=== PATIENT | male | born 1985 | race Caucasian/White ===

== ENCOUNTER 2021-01-28 11:10 | Emergency (ER) | payer MEDICAID ==
[~2021-01-28] VITALS: Ht 177.8 cm; Wt 116.0 kg
[~2021-01-28 11:10] MED LIST: IBUP-1985 PO; NO HOME MEDS
[2021-01-28 11:43] VITALS: BP 178/105
== END 2021-01-28 15:22 | disposition left against medical advice (07) ==
LOC: ER 11:10
DX: F29 Unspecified psychosis not due to a substance or known physiological condition (principal); Z53.21 Procedure and treatment not carried out due to patient leaving prior to being seen by health care provider

== ENCOUNTER 2021-08-02 01:54 | Emergency (ER) | payer MEDICAID ==
[~2021-08-02] VITALS: Ht 177.8 cm; Wt 111.0 kg
[2021-08-02 02:05] VITALS: BP 141/101
[2021-08-02 03:00] LABS: BASOPHILS % (AUTO) 0.4 % (0-1); EOSINOPHILS # (AUTO) 0.1 X10'3 (0-0.9); EOSINOPHILS % (AUTO) 1.3 % (0-6); HEMATOCRIT 41.6 % (42.0-52.0); HEMOGLOBIN 14.1 g/dl (14.0-17.9); LYMPHOCYTES % (AUTO) 32.9 % (21-51); MEAN CORPUSCULAR HEMOGLOBIN 29.3 PG (27.0-31.0); MEAN CORPUSCULAR HGB CONC 33.9 g/dL (33.0-36.5); MEAN CORPUSCULAR VOLUME 86.5 FL (78-98); MEAN PLATELET VOLUME 7.6 FL (7.4-10.4); MONOCYTES # (AUTO) 0.8 X10'3 (0-0.9); MONOCYTES % (AUTO) 8.8 % (2-12); NEUTROPHILS # (AUTO) 5.1 X10'3 (1.8-7.7); NEUTROPHILS % (AUTO) 56.6 % (42-75); PLATELET COUNT 282 X10'3 (140-440); RED BLOOD COUNT 4.81 X10'6 (4.70-6.10); RED CELL DISTRIBUTION WIDTH 13.5 % (11.5-14.5)
[2021-08-02 03:04] LABS: ALANINE AMINOTRANSFERASE 45 U/L (12-78); ALBUMIN 4.4 G/DL (3.4-5.0); ALBUMIN/GLOBULIN RATIO 1.6 (1.1-1.5); ALKALINE PHOSPHATASE 81 IU/L (46-116); ANION GAP 9 (8-16); ASPARTATE AMINO TRANSFERASE 28 U/L (10-37); BILIRUBIN,TOTAL 0.6 MG/DL (0.1-1.0); BLOOD UREA NITROGEN 14 MG/DL (7-18); BUN/CREATININE RATIO 16.9 (5.4-32.0); CALCIUM 9.3 MG/DL (8.5-10.1); CHLORIDE 107 MMOL/L (99-107); CREATININE 0.83 MG/DL (0.60-1.10); ETHANOL < 0.010 GM/DL (0.0-0.010); GLUCOSE 93 MG/DL (70-104); POTASSIUM 3.5 MMOL/L (3.5-5.1); SODIUM 142 MMOL/L (135-145); TOTAL CARBON DIOXIDE 25.6 MMOL/L (24-32); TOTAL PROTEIN 7.2 G/DL (6.4-8.2); eGFR > 90 ML/MIN
[2021-08-02 03:05] LABS: URINE AMPHETAMINE SCREEN POSITIVE (Neg); URINE BARBITUATE SCREEN NEGATIVE (Neg); URINE BENZODIAZEPINES SCREEN NEGATIVE (Neg); URINE CANNABINOID SCREEN POSITIVE (Neg); URINE COCAINE SCREEN NEGATIVE (Neg); URINE METHADONE SCREEN NEGATIVE (Neg); URINE OPIATE SCREEN NEGATIVE (Neg); URINE PHENCYCLIDINE SCREEN NEGATIVE (Neg)
--- NOTE | 2021-08-02 06:52 | NUR ---
Per registration, patient was escorted off the campus by security prior to 0600 this AM.
--- NOTE | 2021-08-02 07:24 | NUR ---
[facility] notified regarding patient. Description provided.
[2021-08-02] MEDS ORDERED: PROP10TA10 PO (16:22)
[2021-08-02] MEDS ORDERED: CARB400T8 PO (16:22)
[2021-08-02] MEDS ORDERED: ATOM80CA3 PO (16:22)
[2021-08-02] MEDS ORDERED: ARIP30TA22 PO (16:22)
== END 2021-08-02 07:25 | disposition left against medical advice (07) ==
LOC: ER 01:55
DX: F31.9 Bipolar disorder, unspecified (principal); Z20.822 Contact with and (suspected) exposure to COVID-19; Z53.21 Procedure and treatment not carried out due to patient leaving prior to being seen by health care provider
CPT/HCPCS: 36415; 80053; 80305; 80320; 85025; 87635; C9803

== ENCOUNTER 2021-08-02 15:23 | Inpatient (IN) | payer MEDICAID ==
[~2021-08-02] VITALS: Ht 177.8 cm; Wt 105.7 kg
[2021-08-02 16:00] LABS: BASOPHILS % (AUTO) 0.5 % (0-1); EOSINOPHILS # (AUTO) 0.2 X10'3 (0-0.9); EOSINOPHILS % (AUTO) 2.1 % (0-6); HEMATOCRIT 42.2 % (42.0-52.0); HEMOGLOBIN 14.2 g/dl (14.0-17.9); LYMPHOCYTES # (AUTO) 2.8 X10'3 (1.1-4.8); LYMPHOCYTES % (AUTO) 31.9 % (21-51); MEAN CORPUSCULAR HEMOGLOBIN 28.9 PG (27.0-31.0); MEAN CORPUSCULAR HGB CONC 33.5 g/dL (33.0-36.5); MEAN CORPUSCULAR VOLUME 86.3 FL (78-98); MEAN PLATELET VOLUME 7.7 FL (7.4-10.4); MONOCYTES % (AUTO) 11.2 % (2-12); NEUTROPHILS # (AUTO) 4.8 X10'3 (1.8-7.7); NEUTROPHILS % (AUTO) 54.3 % (42-75); PLATELET COUNT 290 X10'3 (140-440); RED CELL DISTRIBUTION WIDTH 13.5 % (11.5-14.5); WHITE BLOOD COUNT 8.8 X10'3 (4.5-11.0)
--- NOTE | 2021-08-02 16:05 | NUR ---
Patient is awake and alert. Skin is warm and dry. RN gave patient a pitcher of ice water, apple sauce and cheese. Patient's mucous membranes look dry. Continue to monitor.
[2021-08-02 16:20] LABS: ALANINE AMINOTRANSFERASE 44 U/L (12-78); ALBUMIN 4.5 G/DL (3.4-5.0); ALBUMIN/GLOBULIN RATIO 1.5 (1.1-1.5); ALKALINE PHOSPHATASE 85 IU/L (46-116); ANION GAP 13 (8-16); ASPARTATE AMINO TRANSFERASE 31 U/L (10-37); BILIRUBIN,TOTAL 0.9 MG/DL (0.1-1.0); BLOOD UREA NITROGEN 15 MG/DL (7-18); BUN/CREATININE RATIO 19.2 (5.4-32.0); CALCIUM 9.2 MG/DL (8.5-10.1); CHLORIDE 103 MMOL/L (99-107); CREATININE 0.78 MG/DL (0.60-1.10); ETHANOL < 0.010 GM/DL (0.0-0.010); GLUCOSE 98 MG/DL (70-104); POTASSIUM 3.4 MMOL/L (3.5-5.1); SODIUM 138 MMOL/L (135-145); TOTAL CARBON DIOXIDE 22.1 MMOL/L (24-32); TOTAL PROTEIN 7.5 G/DL (6.4-8.2); eGFR > 90 ML/MIN
[2021-08-02] MEDS ORDERED: PROP10TA10 PO (16:22)
[2021-08-02] MEDS ORDERED: ATOM80CA3 PO (16:22)
[2021-08-02] MEDS ORDERED: ARIP30TA22 PO (16:22)
[2021-08-02] MEDS ORDERED: CARB400T8 PO (16:22)
--- NOTE | 2021-08-02 16:50 | NUR ---
Patient sleeping on left side. No distress observed. Continue to monitor.
[2021-08-02 17:01] LABS: CARBAMAZEPINE (TEGRETOL) 4.7 UG/ML (4.0-12.0)
--- NOTE | 2021-08-02 17:01 | NUR ---
Patient told RN he wants to and "please don't do anything for me." Patient feels hopeless and helpless. Patient states he is Bipolar I and he is hearing voices. Patient is now sleeping. Continue to monitor.
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
[2021-08-02 19:20] LABS: CLARITY,URINE SLIGHTLY CLOUDY (Clear); COLOR,URINE YELLOW (Yellow); GLUCOSE, URINE NEGATIVE (Neg); KETONES,URINE 15 mg/dl (Neg); LEUKOCYTE ESTERASE ,URINE NEGATIVE (Neg); NITRITES, URINE NEGATIVE (Neg); OCCULT BLOOD,URINE NEGATIVE (Neg); PH,URINE 5.5 (4.8-8.0); PROTEIN,URINE TRACE mg/dl (Neg); UROBILINOGEN,URINE 0.2 E.U/dL (0.2-1.0)
[2021-08-02 19:32] LABS: UA COLLECTION TYPE VOIDED
[2021-08-02 19:34] LABS: BACTERIA,URINE FEW /HPF (Neg); RBC,URINE 0-2 /HPF (0-2); SQUAMOUS EPITHELIAL CELL,UR FEW /LPF (FEW); WBC,URINE 0-4 /HPF (0-4)
[2021-08-02 19:36] LABS: URINE AMPHETAMINE SCREEN POSITIVE (Neg); URINE BARBITUATE SCREEN NEGATIVE (Neg); URINE BENZODIAZEPINES SCREEN NEGATIVE (Neg); URINE CANNABINOID SCREEN POSITIVE (Neg); URINE COCAINE SCREEN NEGATIVE (Neg); URINE METHADONE SCREEN NEGATIVE (Neg); URINE OPIATE SCREEN NEGATIVE (Neg); URINE PHENCYCLIDINE SCREEN NEGATIVE (Neg)
--- NOTE | 2021-08-02 19:59 | NUR ---
Packet faxed to [facility]
[2021-08-02] MEDS: neomy sulf/bacitrac zn/polymixin b oint 14.2 gm tube TP SCH (20:00)
[2021-08-02] MEDS: carBAMazepine Ext. Release 200 MG TAB.ER.12H PO SCH (20:00)
--- NOTE | 2021-08-02 21:55 | NUR ---
The patient appears to be sleeping
--- NOTE | 2021-08-02 23:01 | NUR ---
The patient appears to be sleeping
--- NOTE | 2021-08-03 00:36 | NUR ---
The patient appears to be sleeping
--- NOTE | 2021-08-03 02:53 | NUR ---
The patient appears to be sleeping
--- NOTE | 2021-08-03 04:05 | NUR ---
The patient appears to be sleeping
[2021-08-03] MEDS: neomy sulf/bacitrac zn/polymixin b oint 14.2 gm tube TP SCH (08:00)
[2021-08-03] MEDS ORDERED: ARIPIPRAZOLE 15 MG TABLET PO SCH (08:00)
--- NOTE | 2021-08-03 08:07 | NUR ---
Doing well. No complaints. Ate breakfast without difficulty.
[2021-08-03] MEDS: carBAMazepine Ext. Release 200 MG TAB.ER.12H PO SCH ×2 (08:52→20:39)
[2021-08-03] MEDS: atomoxetine 40 MG capsule PO SCH (08:52)
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
--- NOTE | 2021-08-03 11:50 | NUR ---
Tori from [facility] here to speak to pt.
--- NOTE | 2021-08-03 11:57 | NUR ---
Mireya stated they will look for placement for this pt.
--- NOTE | 2021-08-03 13:57 | NUR ---
resting. no distress.
--- NOTE | 2021-08-03 15:19 | NUR ---
Doing well. Got up to BR. Ambulated without difficulty.
--- NOTE | 2021-08-03 16:49 | NUR ---
Resting at this time.
--- NOTE | 2021-08-03 19:06 | NUR ---
Patient observed sleeping; no apparent distress. Respirations even and non labored.
[2021-08-03] MEDS: ARIPIPRAZOLE 15 MG TABLET PO SCH (20:38)
--- NOTE | 2021-08-03 20:48 | NUR ---
Patient's wound DSG changed; he denies pain at this time
--- NOTE | 2021-08-03 23:05 | NUR ---
Patient observed sleeping; no apparent distress observed. Self repositioning.
--- NOTE | 2021-08-04 02:03 | NUR ---
Patient observed sleeping; no apparent distress observed. Self repositioning.
--- NOTE | 2021-08-04 05:32 | NUR ---
Patient observed sleeping; no apparent distress observed.
[2021-08-04] MEDS: neomy sulf/bacitrac zn/polymixin b oint 14.2 gm tube TP SCH (08:00)
[2021-08-04] MEDS: atomoxetine 40 MG capsule PO SCH (08:59)
[2021-08-04] MEDS: carBAMazepine Ext. Release 200 MG TAB.ER.12H PO SCH ×2 (09:01→19:54)
--- NOTE | 2021-08-04 09:33 | NUR ---
Patient pleasant and cooperative; compliant with medication. Endorses SI. Patient has been accepted on [facility].
--- NOTE | 2021-08-04 09:46 | NUR ---
Patient transferred to [facility] by PCT with belongings.
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
[2021-08-04] MEDS ORDERED: loperamide 2mg capsule PO PRN (10:20)
[2021-08-04] MEDS ORDERED: acetaminophen 325mg tablet PO PRN ×2 (10:20)
[2021-08-04] MEDS ORDERED: magnesium hydroxide 30ml (MOM) UD suspension PO PRN (10:20)
[2021-08-04] MEDS ORDERED: mag hydrox/Alum hydrox/simeth 30ml oral suspension PO PRN (10:20)
[2021-08-04 10:34] VITALS: BP 118/79
--- NOTE | 2021-08-04 11:03 | NUR ---
Malnutrition consult: Pt reports 2-13 lb wt loss with decreased appetite per malnutrition risk screen with RN. Unfortunately most recent scaled wt hx is 04/02/16, documented at 100.2 kg, which appears to be baseline for that year per EMR. Current scaled wt is 105.7 kg which is 140% IBW. Pt on a regular diet and eating well, documented with 75-100% PO intake. Pt with no documented decrease in muscle strength or edema and per ED report appears well developed well nourished. Pt currently lacks a minimum of two criteria for malnutrition. Will continue to follow and further monitor qualifying criteria for malnutrition. Addendum: 08/04/21 at [address] Amended: Links added.
[2021-08-04 14:33] VITALS: BP 117/77
[2021-08-04] MEDS: propranolol 10mg tablet PO PRN ×2 (14:33→19:37)
--- NOTE | 2021-08-04 14:51 | NUR ---
PRNs Administered: Propranolol 10mg Interventions Offered: Pt. became agitated while talking on the telephone with his family and began yelling out using multiple profanities. He was able to be redirected by staff and PRN Propranolol was administered. Response to Medication: Pt. thanked this writer editor for the medication, will continue to monitor closely.
--- NOTE | 2021-08-04 15:42 | NUR ---
Problem : Pt admitted to [place] for Behavioral health on 5150 for DTS/DTO. Pt reports plan to jump off a bridge to kill himself. He reports audio hallucination telling him to hurt other people. Unable to develop safety plan. Pt has history of Schizophrenia and bipolar. Interventions : Introduced self and established rapport, maintained a safe and supportive environment, ensured contract for safety, provide active listening and positive encouragement, provided redirection as needed, and maintained Q 15min safety checks. Response : Pt. was cooperative with 1:1 completed at bedside, however presented with fatigue and had difficulty focusing on questions and keeping his eyes open. Pt. continues to report S/I with a plan to jump off a bridge. He also reports H/I towards others around him, but does not elaborate on this. When questioned regrading A/V/ASHTON, pt. states, "I hear the voices of the people I talk to daily." He also endorses V/ASHTON of "People." Pt. makes what appear to be delusional statements regarding his belief that others, "Are trying to hurt me or people I care about." Pt. is currently homeless, but reports he receives money from disability and is hopeful that the child protective services social worker will be able to find him a new place to live. He is also hoping to work with the psychiatrist to find medications that will better work for him. Pt. naps intermittently throughout the shift, and is withdrawn from others on the unit. He has an episode of agitation but is able to be redirected, see previous note. Plan : Pt. requires interruption of current crisis, medication adjustments, and a safe and supportive environment.
[2021-08-04 19:25] VITALS: BP 130/79
[2021-08-04] MEDS: ARIPIPRAZOLE 15 MG TABLET PO SCH (19:54)
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
[2021-08-05 08:00] VITALS: BP 123/60
[2021-08-05] MEDS: atomoxetine 40 MG capsule PO SCH (08:34)
[2021-08-05] MEDS: carBAMazepine Ext. Release 200 MG TAB.ER.12H PO SCH ×2 (08:35→20:49)
[2021-08-05] MEDS: neomy sulf/bacitrac zn/polymixin b oint 14.2 gm tube TP SCH (08:37)
[2021-08-05 08:45] LABS: CHOL/HDL RATIO 5.5 (0.00-4.99); CHOLESTEROL 221 MG/DL (0-200); HDL CHOLESTEROL 40 MG/DL (35-60); LDL CHOLESTEROL 142 MG/DL (50-100); TRIGLYCERIDES 139 MG/DL (20-135)
[2021-08-05 08:46] LABS: HEMOGLOBIN A1C 5.8 % (4.5-6.2)
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
[2021-08-05 19:53] VITALS: BP 98/61
[2021-08-05] MEDS: traZODone 50mg tablet PO PRN ×2 (20:49→23:52)
[2021-08-05] MEDS: ARIPIPRAZOLE 15 MG TABLET PO SCH (20:49)
--- NOTE | 2021-08-06 01:02 | NUR ---
Nursing Note: Problem : Pt admitted to [place] for Behavioral health on 5150 for DTS/DTO. Pt reports plan to jump off a bridge to kill himself. He reports audio hallucination telling him to hurt other people. Unable to develop safety plan. Pt has history of Schizophrenia and bipolar. Interventions : Established rapport, maintained a safe and supportive environment, ensured contract for safety, provide active listening and positive encouragement, provided redirection as needed, performed wound cleaning and dressing change and maintained Q 15min safety checks. Response : Sleeping in bed at start of shift. Up in group room later asked for something at HS to help him sleep. Order was obtained for Trazodone. Pt requested coffee with caffeine. Pt became angry when told that was not possible. During assessment pt became angry when asked how was your day? "Shitty without a Stimulant I have ADHD." When pt was reminded that he was taking Strattera he said. "That medication is non-Narcotic it is Bullshit." Pt mood is labile. He seems to try and be calm but has sudden but short outbursts. Pt admitted Auditory hallucinations but was vague as to the content. He took PRN Trazodone and went to sleep. Plan : Pt. requires interruption of current crisis, medication adjustments, and a safe and supportive environment.
[2021-08-06 07:58] VITALS: BP 122/67
[2021-08-06] MEDS: atomoxetine 40 MG capsule PO SCH (08:11)
[2021-08-06] MEDS: carBAMazepine Ext. Release 200 MG TAB.ER.12H PO SCH ×2 (08:11→20:50)
[2021-08-06] MEDS: propranolol 10mg tablet PO PRN ×2 (08:11→17:18)
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
[2021-08-06 17:16] VITALS: BP 126/86
[2021-08-06 19:30] VITALS: BP 120/75
[2021-08-06] MEDS: traZODone 50mg tablet PO PRN (20:49)
[2021-08-06] MEDS: ARIPIPRAZOLE 15 MG TABLET PO SCH (20:51)
[2021-08-06] MEDS ORDERED: OLANZapine 5mg rapidly disint. tablet PO PRN (21:05)
[2021-08-06] MEDS: traZODone 50mg tablet PO SCH (21:15)
[2021-08-07] MEDS: propranolol 10mg tablet PO PRN (02:47)
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
[2021-08-07 08:00] VITALS: BP 97/60
[2021-08-07] MEDS: atomoxetine 40 MG capsule PO SCH (08:05)
[2021-08-07] MEDS: carBAMazepine Ext. Release 200 MG TAB.ER.12H PO SCH ×2 (08:08→20:07)
--- NOTE | 2021-08-07 13:27 | NUR ---
Nutrition Consult "pt wants to talk about diet": Pt PO ~100% avg regular diet meeting estimated needs. HIAN d/w RN on floor regarding nutrition consult request however pt RN currently not available; pending return call at this time. No nutrition interventions at this time. Addendum: 08/07/21 at [address] Amended: Links added.
--- NOTE | 2021-08-07 13:34 | NUR ---
WOUND INFECTION EDUCATION PROVIDED BY WOUND CARE 1. Patient instructed to call their primary doctor, or go the ED immediately if any of the following symptoms occur: * Increased pain in wound * Increase in drainage from the wound * Redness in the skin surrounding the wound * Warmth in the skin surrounding the wound * Bleeding from the wound * Temperature of 101 or greater 2. If any of these occur while in the hospital tell a nurse immediately. Addendum: 08/07/21 at 1335 by Shirley Dumont LVN Amended: Links added.
[2021-08-07] MEDS ORDERED: olanzapine 10mg tablet PO PRN (13:45)
[2021-08-07] MEDS ORDERED: aripiprazole 400mg suspension ER syringe IM ONE (13:45)
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
[2021-08-07 19:25] VITALS: BP 127/77
[2021-08-07] MEDS: ARIPIPRAZOLE 15 MG TABLET PO SCH (20:07)
[2021-08-07] MEDS: traZODone 50mg tablet PO SCH (20:08)
--- NOTE | 2021-08-07 21:36 | NUR ---
Nursing Note: Problem : Pt admitted to [place] for Behavioral health on 5150 for DTS/DTO. Pt reports plan to jump off a bridge to kill himself. He reports audio hallucination telling him to hurt other people. Unable to develop safety plan. Pt has history of Schizophrenia and bipolar. Interventions : Established rapport, maintained a safe and supportive environment, ensured contract for safety, provide active listening and positive encouragement, provided redirection as needed, performed wound cleaning and dressing change and maintained Q 15min safety checks. Response : Pt was resting in his room at change of shift. Abilify injection administered, pt tolerated well. Pt requested to shower and dressing was covered and continued to appear CDI when he was out of the shower. Pt is pleasant, calm, cooperative this evening. Pt asked another nurse "Why are you so mad tonight?" Nurse had not been engaged in a conversation at the time so it appeared he may have been responding to IS. Pt had a snack, took HS meds and went to bed. Plan : Pt. requires interruption of current crisis, medication adjustments, and a safe and supportive environment.
--- NOTE | 2021-08-08 07:17 | NUR ---
Initial: Pt admitted w/ suicidal ideations per EMR. Currently on Regular diet w/ double protein TID per diet order, eating 100% of meals and participating in snacks per documentation. Pt greatly exceeding needs w/ addition of double protein, recommend discontinuing. Per discussion w/ RN, pt is requesting beans and rice w/ meals, d/w dietary. [facility] 08/07. Will continue to monitor. Recs; 1. Continue Regular diet as tolerated; discontinue Double protein TID 2. Beans and rice w/ meals per pt preference 3. Bowel care PRN 4. Weekly wts Addendum: 08/08/21 at [address] Amended: Links added.
[2021-08-08 08:00] VITALS: BP 125/65
[2021-08-08] MEDS: carBAMazepine Ext. Release 200 MG TAB.ER.12H PO SCH ×2 (08:08→20:02)
[2021-08-08] MEDS: atomoxetine 40 MG capsule PO SCH (08:08)
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
[2021-08-08 19:45] VITALS: BP 122/86
[2021-08-08] MEDS: traZODone 50mg tablet PO SCH (20:01)
[2021-08-08] MEDS: ARIPIPRAZOLE 15 MG TABLET PO SCH (20:01)
--- NOTE | 2021-08-08 20:57 | NUR ---
Nursing Note: Problem : Pt admitted to [place] for Behavioral health on 5150 for DTS/DTO. Pt reports plan to jump off a bridge to kill himself. He reports audio hallucination telling him to hurt other people. Unable to develop safety plan. Pt has history of Schizophrenia and bipolar. Interventions : Established rapport, maintained a safe and supportive environment, ensured contract for safety, provide active listening and positive encouragement, provided redirection as needed, performed wound cleaning and dressing change and maintained Q 15min safety checks. Response : Pt was walking in the hallway at change of shift. He is in a pleasant mood tonight and requests personal clothing from his locker. pt denies s/i, a/vh. Pt changed his clothes and seems to be very proud of his clothing, and a bit grandiose telling staff and peers about having "hundreds of dollars of [employer] brand clothes." Pt had snack and appears to getting along well w/peers. Pt took HS meds and states "Im not taking any of this when I get out of here!" Attempted to educate pt on what his medication is for and encouraged him to consider how well he is doing with his medication. Pt replied "I know, but I don't need sleep when I leave here." Plan : Pt. requires interruption of current crisis, medication adjustments, and a safe and supportive environment. Addendum: 08/08/21 at 2326 by Rachael Nickerson RN Pt got out of bed and began pacing and wearing headphones, pt states he is feeling anxious and states 'I'm about to have a panic attack I need propranolol" Pt was given prn propranol and continued to pace and run his fingers through his hair often. Pt was in and out of his room and appeared to escalate. Asked pt if he was ok and he states "I want to leave, I have intuition something is going to happen to my and daughter and I need to leave now to check on them." Engaged pt in conversation and he explains in a grandiose manner what he's "created" and how he has to "fight more people in the [facility] brother bui" pt is tangential and rambling about being in [facility] and longterm people wanting to kill him. Pt was determined to leave to "check on" his family. Pt was offered 10mg Zyprexa PRN and he laughs and states "I'll sleep for 3 days on that stuff, ok I'll take one." Pt took 1/2 of his zyprexa dose and spoke of various things hes done in the past. Pt decided he would go lay in bed and try to sleep.
[2021-08-08] MEDS: propranolol 10mg tablet PO PRN (21:21)
[2021-08-09 07:39] VITALS: BP 114/65
[2021-08-09] MEDS: carBAMazepine Ext. Release 200 MG TAB.ER.12H PO SCH ×2 (08:00→08:54)
[2021-08-09] MEDS: atomoxetine 40 MG capsule PO SCH (08:54)
--- NOTE | 2021-08-09 09:14 | NUR ---
PT REFUSED TO TAKE HIS TRILEPTAL. HE STATES, "AT HOME I TAKE THE MEDICATIONS THAT MAKE ME TIRED AT NIGHT, NOT IN THE MORNING."
--- NOTE | 2021-08-09 11:53 | NUR ---
Discharge Presenting Issues: Pt's on Vol and per attending physician is ready to d/c, needs support with dcp activities. Interventions: Clinician had t/c w/[facility] to coordinate aftercare plan as pt wants to resume services w/[facility]. Per t/c pt is to walk-in during [facility] hours to re-establish services. Clinician met w/pt and finalized dcp: Pt reported that he will spend a night at his GM's home in [place], does not know address, and will return to [place] tomorrow morning to walk-in at [facility]. Clinician provided bus passes for pt to use to get to [facility] clinic tomorrow. Plan: Pt to d/c and to last picker. Cathleen Carballo LCSW Addendum: 08/09/21 at 1157 by Cathleen Carballo SS Amended: Links added.
--- NOTE | 2021-08-09 11:54 | NUR ---
Pt refused photo because dressing is in place for discharge Addendum: 08/09/21 at 1156 by Lesia Rebolledo RN Amended: Links added.
== END 2021-08-09 12:00 | disposition home or self-care (01) | DRG 750 ==
LOC: ER 15:23 → ED HOLD 08-04 08:45 → ADULT MH 08-04 09:54
PROVIDERS: ADMIT Psychiatry & Neurology Psychiatry; ATTEND Psychiatry & Neurology Psychiatry
DX: F25.0 Schizoaffective disorder, bipolar type (principal); R45.851 Suicidal ideations; R45.850 Homicidal ideations; F12.10 Cannabis abuse, uncomplicated; Z20.822 Contact with and (suspected) exposure to COVID-19; I10 Essential (primary) hypertension; F31.9 Bipolar disorder, unspecified; E87.6 Hypokalemia; F15.10 Other stimulant abuse, uncomplicated; F17.200 Nicotine dependence, unspecified, uncomplicated; F90.9 Attention-deficit hyperactivity disorder, unspecified type; K21.9 Gastro-esophageal reflux disease without esophagitis; S30.811A Abrasion of abdominal wall, initial encounter; X58.XXXA Exposure to other specified factors, initial encounter; Y93.89 Activity, other specified; Z56.0 Unemployment, unspecified; Z87.442 Personal history of urinary calculi; Z59.00 Homelessness unspecified; Z79.2 Long term (current) use of antibiotics; Z79.899 Other long term (current) drug therapy; Y92.89 Other specified places as the place of occurrence of the external cause; Y99.8 Other external cause status; E11.9 Type 2 diabetes mellitus without complications
CPT/HCPCS: 36415; 80053; 80061; 80156; 80305; 80320; 81001; 83036; 84443; 85025; 87081; 87635; 99285; A6223; A6258; A6449; C9803

== ENCOUNTER 2021-08-15 16:56 | Emergency (ER) | payer MEDICAID ==
[~2021-08-15 16:56] MED LIST changes: +ARIP30TA22 PO; +ATOM80CA3 PO; +CARB400T8 PO; -IBUP-1985 PO; -NO HOME MEDS; +PROP10TA10 PO
[2021-08-16] MEDS ORDERED: ARIP400S3 IM (22:16)
== END 2021-08-15 18:38 | disposition left against medical advice (07) ==
LOC: ER 16:56
DX: M79.673 Pain in unspecified foot (principal); Z53.21 Procedure and treatment not carried out due to patient leaving prior to being seen by health care provider

== ENCOUNTER 2021-09-02 18:42 | Emergency (ER) | payer MEDICAID ==
[~2021-09-02] VITALS: Ht 177.8 cm; Wt 104.5 kg
[~2021-09-02 18:42] MED LIST changes: +ARIP400S3 IM; +SULF1TAB49 PO
[2021-09-03 09:39] LABS: BASOPHILS % (AUTO) 0.4 % (0-1); EOSINOPHILS # (AUTO) 0.1 X10'3 (0-0.9); EOSINOPHILS % (AUTO) 0.8 % (0-6); HEMATOCRIT 38.8 % (42.0-52.0); HEMOGLOBIN 13.2 g/dl (14.0-17.9); LYMPHOCYTES # (AUTO) 2.2 X10'3 (1.1-4.8); LYMPHOCYTES % (AUTO) 25.7 % (21-51); MEAN CORPUSCULAR HEMOGLOBIN 29.5 PG (27.0-31.0); MEAN CORPUSCULAR VOLUME 86.8 FL (78-98); MONOCYTES # (AUTO) 0.5 X10'3 (0-0.9); MONOCYTES % (AUTO) 5.9 % (2-12); NEUTROPHILS # (AUTO) 5.8 X10'3 (1.8-7.7); NEUTROPHILS % (AUTO) 67.2 % (42-75); PLATELET COUNT 246 X10'3 (140-440); RED BLOOD COUNT 4.47 X10'6 (4.70-6.10); RED CELL DISTRIBUTION WIDTH 13.8 % (11.5-14.5); WHITE BLOOD COUNT 8.6 X10'3 (4.5-11.0)
[2021-09-03 09:47] LABS: ALANINE AMINOTRANSFERASE 55 U/L (12-78); ALBUMIN 3.7 G/DL (3.4-5.0); ALBUMIN/GLOBULIN RATIO 1.2 (1.1-1.5); ALKALINE PHOSPHATASE 82 IU/L (46-116); ANION GAP 10 (8-16); ASPARTATE AMINO TRANSFERASE 26 U/L (10-37); BILIRUBIN,TOTAL 0.8 MG/DL (0.1-1.0); BLOOD UREA NITROGEN 9 MG/DL (7-18); CALCIUM 8.8 MG/DL (8.5-10.1); CHLORIDE 103 MMOL/L (99-107); ETHANOL < 0.010 GM/DL (0.0-0.010); GLUCOSE 115 MG/DL (70-104); SODIUM 138 MMOL/L (135-145); TOTAL PROTEIN 6.8 G/DL (6.4-8.2); eGFR > 90 ML/MIN
--- NOTE | 2021-09-03 10:00 | NUR ---
Pt brought from Triage. Needs medical clearance. Pt changed from street clothes into green scrubs. Pt c/o "a high frustration level with his nephew." He states, "I have ADHD and am easily angered." He said, "maybe I need a little more Zyprexa, I had the long acting last time I was here."
[2021-09-03] MEDS ORDERED: potassium Cl 20 mEq SR tablet PO STA (10:07)
--- NOTE | 2021-09-03 11:09 | NUR ---
Pt now appears to be sleeping. His eyes are closted. RR even and unlabored.
--- NOTE | 2021-09-03 12:49 | NUR ---
Pt continues to sleep. He has not been up to for urinalysis. [facility] office notified.
--- NOTE | 2021-09-03 14:49 | NUR ---
Pt awake and asking for food. Helen went to the cafeteria to get food. Reg. diet ordered per patient request.
[2021-09-03 15:17] LABS: CLARITY,URINE CLEAR (Clear); COLOR,URINE YELLOW (Yellow); GLUCOSE, URINE NEGATIVE (Neg); KETONES,URINE NEGATIVE (Neg); LEUKOCYTE ESTERASE ,URINE NEGATIVE (Neg); NITRITES, URINE NEGATIVE (Neg); OCCULT BLOOD,URINE NEGATIVE (Neg); PROTEIN,URINE NEGATIVE (Neg); UROBILINOGEN,URINE 0.2 E.U/dL (0.2-1.0)
[2021-09-03 15:21] LABS: UA COLLECTION TYPE NON-SPECIFIED
[2021-09-03 15:36] LABS: URINE AMPHETAMINE SCREEN NEGATIVE (Neg); URINE BARBITUATE SCREEN NEGATIVE (Neg); URINE BENZODIAZEPINES SCREEN NEGATIVE (Neg); URINE CANNABINOID SCREEN POSITIVE (Neg); URINE COCAINE SCREEN NEGATIVE (Neg); URINE METHADONE SCREEN NEGATIVE (Neg); URINE OPIATE SCREEN NEGATIVE (Neg); URINE PHENCYCLIDINE SCREEN NEGATIVE (Neg)
--- NOTE | 2021-09-03 15:51 | NUR ---
PACKET FAXED TO [facility]
--- NOTE | 2021-09-03 17:39 | NUR ---
Pt continues to sleep. RR even and unlabored.
[2021-09-03] MEDS ORDERED: propranolol 10mg tablet PO PRN (17:40)
--- NOTE | 2021-09-03 19:39 | NUR ---
The patient has been resting quietly on his bed. He ate 100% of his dinner plus snacks. He reports voices frequently when awake and at times they tell him to harm others. He reports VH of shadows. He denies that he feels sucidal.
[2021-09-03] MEDS: sulfamethoxazole/trimethoprim DS (800/160mg) tablet PO SCH (20:07)
[2021-09-03] MEDS: carBAMazepine Ext. Release 200 MG TAB.ER.12H PO SCH (20:07)
[2021-09-03] MEDS ORDERED: ARIPIPRAZOLE 15 MG TABLET PO SCH (21:00)
--- NOTE | 2021-09-03 21:34 | NUR ---
The patient appears to be sleeping
--- NOTE | 2021-09-03 23:17 | NUR ---
The patient appears to be sleeping
--- NOTE | 2021-09-04 01:04 | NUR ---
The patient appears to be sleeping
--- NOTE | 2021-09-04 03:01 | NUR ---
The patient appears to be sleeping
--- NOTE | 2021-09-04 05:05 | NUR ---
The patient is currently resting on his bed. The wound on his leg did start to drain when he was up to use the bathroom and a dressing was applied.
[2021-09-04 05:29] VITALS: BP 119/73
--- NOTE | 2021-09-04 07:00 | NUR ---
Received Pt in bed sleeping w/o distress.
[2021-09-04] MEDS ORDERED: atomoxetine 40 MG capsule PO SCH (08:00)
[2021-09-04] MEDS: carBAMazepine Ext. Release 200 MG TAB.ER.12H PO SCH (08:59)
[2021-09-04] MEDS: sulfamethoxazole/trimethoprim DS (800/160mg) tablet PO SCH (08:59)
--- NOTE | 2021-09-04 09:05 | NUR ---
Pt was up to batrhroom and ate breakfast. Pt cooperative with AM meds. Pt pleasant, cooperative and tired at this time.
--- NOTE | 2021-09-04 11:30 | NUR ---
Pt in bed talking with [facility] clinician appropriatly.
--- NOTE | 2021-09-04 12:30 | NUR ---
Talked with [facility] clinician who stated Pt will be discharging and 5150 not upheld.
--- NOTE | 2021-09-04 13:12 | NUR ---
Pt discharged at 1310. Pt belongings returned to him and DC instructions reviewed and understood. Pt escorted to outside by security.
== END 2021-09-04 13:13 ==
LOC: ER 18:43
DX: R45.850 Homicidal ideations (principal); Z20.822 Contact with and (suspected) exposure to COVID-19; F15.10 Other stimulant abuse, uncomplicated; F12.10 Cannabis abuse, uncomplicated; I10 Essential (primary) hypertension; F31.9 Bipolar disorder, unspecified; F20.9 Schizophrenia, unspecified; Z87.442 Personal history of urinary calculi
CPT/HCPCS: 36415; 80053; 80305; 80320; 81003; 85025; 87811; 99285; C1758

== ENCOUNTER 2021-10-04 23:02 | Emergency (ER) | payer MEDICAID ==
[~2021-10-04] VITALS: Ht 177.8 cm; Wt 100.0 kg
[~2021-10-04 23:02] MED LIST changes: -SULF1TAB49 PO
[2021-10-04 23:13] VITALS: BP 137/90
== END 2021-10-05 00:19 | disposition left against medical advice (07) ==
LOC: ER 23:06
DX: F31.9 Bipolar disorder, unspecified (principal); Z53.21 Procedure and treatment not carried out due to patient leaving prior to being seen by health care provider

== ENCOUNTER 2021-10-06 21:31 | Emergency (ER) | payer MEDICAID ==
[~2021-10-06] VITALS: Ht 180.3 cm; Wt 103.6 kg
[2021-10-06 21:41] VITALS: BP 135/88
== END 2021-10-07 00:38 | disposition left against medical advice (07) ==
LOC: ER 21:32
DX: M79.671 Pain in right foot (principal); M79.672 Pain in left foot; Z53.21 Procedure and treatment not carried out due to patient leaving prior to being seen by health care provider

== ENCOUNTER 2021-10-07 20:00 | Emergency (ER) | payer MEDICAID ==
[~2021-10-07] VITALS: Ht 177.8 cm; Wt 95.5 kg
[2021-10-07 20:04] VITALS: BP 129/86
== END 2021-10-07 21:23 | disposition left against medical advice (07) ==
LOC: ER 20:00
DX: M79.671 Pain in right foot (principal); M79.672 Pain in left foot; Z53.21 Procedure and treatment not carried out due to patient leaving prior to being seen by health care provider

== ENCOUNTER 2021-10-10 23:27 | Emergency (ER) | payer MEDICAID ==
[~2021-10-10] VITALS: Ht 177.8 cm; Wt 95.5 kg
[2021-10-10 23:47] VITALS: BP 141/96
== END 2021-10-11 03:02 | disposition left against medical advice (07) ==
LOC: ER 23:29
DX: Z04.6 Encounter for general psychiatric examination, requested by authority (principal); Z53.21 Procedure and treatment not carried out due to patient leaving prior to being seen by health care provider
CPT/HCPCS: 93005

== ENCOUNTER 2021-10-13 18:46 | Emergency (ER) | payer MEDICAID ==
[~2021-10-13] VITALS: Ht 180.3 cm; Wt 113.6 kg
[2021-10-13 18:50] VITALS: BP 137/92
== END 2021-10-14 02:30 | disposition left against medical advice (07) ==
LOC: ER 18:47
DX: R45.851 Suicidal ideations (principal); Z53.21 Procedure and treatment not carried out due to patient leaving prior to being seen by health care provider

== ENCOUNTER 2021-10-14 10:30 | Emergency (ER) | payer MEDICAID | END 2021-10-14 14:03 | disposition left against medical advice (07) | LOC: ER 10:30 | DX: F29 Unspecified psychosis not due to a substance or known physiological condition (principal); Z53.21 Procedure and treatment not carried out due to patient leaving prior to being seen by health care provider ==

== ENCOUNTER 2021-10-14 20:57 | Emergency (ER) | payer MEDICAID ==
[~2021-10-14] VITALS: Ht 180.3 cm; Wt 97.9 kg
[2021-10-14 22:11] VITALS: BP 127/75
== END 2021-10-15 01:17 | disposition left against medical advice (07) ==
LOC: ER 20:58
DX: R45.851 Suicidal ideations (principal); Z53.21 Procedure and treatment not carried out due to patient leaving prior to being seen by health care provider

== ENCOUNTER 2021-10-19 21:08 | Emergency (ER) | payer MEDICAID ==
[~2021-10-19] VITALS: Ht 175.3 cm; Wt 98.0 kg
[2021-10-19 21:17] VITALS: BP 126/96
== END 2021-10-20 01:54 | disposition left against medical advice (07) ==
LOC: ER 21:09
DX: M79.671 Pain in right foot (principal); M79.672 Pain in left foot; Z53.21 Procedure and treatment not carried out due to patient leaving prior to being seen by health care provider

== ENCOUNTER → 2021-11-02 | Emergency (ER) | payer MEDICAID ==
[~2021-11-02] VITALS: Ht 177.8 cm; Wt 90.9 kg
[~2021-11-02] MED LIST changes: -ARIP400S3 IM; +BUPR1FIL54 BC; +CEPH-585 PO; +OLAN15TA35 PO; -PROP10TA10 PO; +Vitamins A And D TP
[2021-11-02 17:08] VITALS: BP 147/93
== END | disposition left against medical advice (07) ==
LOC: ER 16:34
DX: F29 Unspecified psychosis not due to a substance or known physiological condition (principal); Z53.21 Procedure and treatment not carried out due to patient leaving prior to being seen by health care provider

== ENCOUNTER 2022-01-12 21:15 | Inpatient (IN) | payer MEDICAID ==
[~2022-01-12] VITALS: Ht 180.3 cm; Wt 89.3 kg
--- NOTE | 2022-01-13 00:04 | NUR ---
Lab informed senior writer that she called the patient and the pt is not in the lobby
--- NOTE | 2022-01-13 02:59 | NUR ---
PT NON COOPERATIVE WITH ASSESSMENTS AT THIS TIME.
[2022-01-13] MEDS ORDERED: haloperidol lactate 5mg/ml inj ONE (05:50)
[2022-01-13] MEDS ORDERED: LORazepam 2 mg/ml vial ONE (05:51)
--- NOTE | 2022-01-13 07:17 | NUR ---
LABS DRAWN SENT TO LAB. PT IS SLEEPING IN POSITION OF COMFORT. VS WNL
[2022-01-13 07:42] LABS: BASOPHILS % (AUTO) 0.5 % (0-1); EOSINOPHILS # (AUTO) 0.2 X10'3 (0-0.9); EOSINOPHILS % (AUTO) 2.6 % (0-6); HEMATOCRIT 39.9 % (42.0-52.0); HEMOGLOBIN 13.8 g/dl (14.0-17.9); LYMPHOCYTES # (AUTO) 1.7 X10'3 (1.1-4.8); LYMPHOCYTES % (AUTO) 29.1 % (21-51); MEAN CORPUSCULAR HEMOGLOBIN 29.7 PG (27.0-31.0); MEAN CORPUSCULAR HGB CONC 34.5 g/dL (33.0-36.5); MEAN PLATELET VOLUME 7.9 FL (7.4-10.4); MONOCYTES # (AUTO) 0.6 X10'3 (0-0.9); NEUTROPHILS # (AUTO) 3.4 X10'3 (1.8-7.7); NEUTROPHILS % (AUTO) 57.8 % (42-75); PLATELET COUNT 275 X10'3 (140-440); RED BLOOD COUNT 4.64 X10'6 (4.70-6.10); RED CELL DISTRIBUTION WIDTH 14.3 % (11.5-14.5); WHITE BLOOD COUNT 5.8 X10'3 (4.5-11.0)
[2022-01-13 09:11] LABS: ETHANOL < 0.010 GM/DL (0.0-0.010); POTASSIUM 3.7 MMOL/L (3.5-5.1); SODIUM 139 MMOL/L (135-145)
[2022-01-13 09:12] LABS: ALANINE AMINOTRANSFERASE 38 U/L (12-78); ALBUMIN 3.6 G/DL (3.4-5.0); ALBUMIN/GLOBULIN RATIO 1.1 (1.1-1.5); ALKALINE PHOSPHATASE 85 IU/L (46-116); ANION GAP 9 (8-16); ASPARTATE AMINO TRANSFERASE 34 U/L (10-37); BILIRUBIN,TOTAL 0.8 MG/DL (0.1-1.0); BLOOD UREA NITROGEN 13 MG/DL (7-18); CALCIUM 9.1 MG/DL (8.5-10.1); CHLORIDE 104 MMOL/L (99-107); CREATININE 0.52 MG/DL (0.60-1.10); GLUCOSE 97 MG/DL (70-104); TOTAL CARBON DIOXIDE 25.7 MMOL/L (24-32); TOTAL PROTEIN 6.9 G/DL (6.4-8.2); eGFR > 90 ML/MIN
--- NOTE | 2022-01-13 09:23 | NUR ---
PT SLEEPING IN POSITION OF COMFORT. AROUSABLE BUT NOT ABLE TO STAY AWAKE. EVEN RISE AND FALL OF CHEST. PT ON MONITOR WITH VS WNL
--- NOTE | 2022-01-13 13:13 | NUR ---
PT CONTINUES TO SLEEP IN POSITION OF COMFORT. AROUSABLE BUT VERY DROWSY. UNABLE TO ANSWER ANY QUESTIONS.
[2022-01-13 13:27] LABS: CLARITY,URINE CLEAR (Clear); COLOR,URINE YELLOW (Yellow); GLUCOSE, URINE NEGATIVE (Neg); KETONES,URINE 15 mg/dl (Neg); LEUKOCYTE ESTERASE ,URINE NEGATIVE (Neg); NITRITES, URINE NEGATIVE (Neg); OCCULT BLOOD,URINE NEGATIVE (Neg); PROTEIN,URINE NEGATIVE (Neg); UROBILINOGEN,URINE 0.2 E.U/dL (0.2-1.0)
[2022-01-13 13:29] LABS: UA COLLECTION TYPE NON-SPECIFIED
[2022-01-13 13:48] LABS: URINE AMPHETAMINE SCREEN POSITIVE (Neg); URINE BARBITUATE SCREEN NEGATIVE (Neg); URINE BENZODIAZEPINES SCREEN NEGATIVE (Neg); URINE CANNABINOID SCREEN POSITIVE (Neg); URINE COCAINE SCREEN NEGATIVE (Neg); URINE METHADONE SCREEN NEGATIVE (Neg); URINE OPIATE SCREEN NEGATIVE (Neg); URINE PHENCYCLIDINE SCREEN NEGATIVE (Neg)
--- NOTE | 2022-01-13 14:30 | NUR ---
PT AWAKE STATES SI. DENIES VISUAL OR AUDITORY HALLUCINATIONS. PT CONTRACTS TO SAFETY. CALM COOPERATIVE. SPEAKS CLEARLY. STATED HE WANTS TO JUMP OFF BRIDGE.
--- NOTE | 2022-01-13 14:57 | NUR ---
pt moved from ER 11 TO EROF 20
--- NOTE | 2022-01-13 15:09 | NUR ---
akbar sent pt packet to [facility]
--- NOTE | 2022-01-14 05:07 | NUR ---
pt ambulated to bathroom and back w/o difficulty, no complaints at this time
--- NOTE | 2022-01-14 08:18 | NUR ---
ST WHEELER CALLED FOR POSSIBLE PLACEMENT
--- NOTE | 2022-01-14 08:37 | NUR ---
Patient eating breakfast. No distress observed. Continue to monitor.
--- NOTE | 2022-01-14 10:00 | NUR ---
Patient sleeping supine. No distress observed. Continue to monitor.
--- NOTE | 2022-01-14 12:22 | NUR ---
Patient eating lunch. No distress observed. Continue to monitor.
--- NOTE | 2022-01-14 14:11 | NUR ---
Patient ambulatory to BR, steady gait. No distress observed. Continue to monitor.
[2022-01-14] MEDS ORDERED: OLANZapine 5mg rapidly disint. tablet PO ONE (16:30)
--- NOTE | 2022-01-14 16:52 | NUR ---
Assumed care of patient. Patient states he is hearing voices. RN gave patient 10 my Zyprexa. Continue to monitor.
[2022-01-14] MEDS ORDERED: ATOM80CA3 PO (18:22)
[2022-01-14] MEDS ORDERED: OLAN5TAB75 PO (18:22)
[2022-01-14] MEDS ORDERED: CARB400T5 PO (18:22)
[2022-01-14] MEDS ORDERED: ARIP15TA3 PO (18:22)
[2022-01-14] MEDS: carBAMazepine Ext. Release 200 MG TAB.ER.12H PO SCH (20:05)
[2022-01-14] MEDS: ARIPIPRAZOLE 15 MG TABLET PO SCH (20:05)
--- NOTE | 2022-01-14 20:53 | NUR ---
Received pt resting in bed, woke pt up for HS meds, denies SI and states he hears voices sometimes but no now. Pt went back to sleep. Contiue to monitor.
--- NOTE | 2022-01-15 00:07 | NUR ---
Pt up to the bathroom. Pt back to bed.
--- NOTE | 2022-01-15 02:45 | NUR ---
Pt appears to be sleeping.
--- NOTE | 2022-01-15 05:05 | NUR ---
Pt appears to be sleeping.
--- NOTE | 2022-01-15 06:32 | NUR ---
Patient appears to be sleeping supine. No distress observed. Continue to monitor.
[2022-01-15] MEDS: atomoxetine 40 MG capsule PO SCH (08:00)
--- NOTE | 2022-01-15 08:17 | NUR ---
Patient eating breakfast. No distress observed. Continue to monitor.
--- NOTE | 2022-01-15 10:22 | NUR ---
Patient sleeping on right side. No distress observed. Continue to monitor.
[2022-01-15] MEDS: carBAMazepine Ext. Release 200 MG TAB.ER.12H PO SCH ×2 (11:19→20:43)
[2022-01-15] MEDS: OLANZAPINE 5 MG TABLET PO PRN (11:20)
--- NOTE | 2022-01-15 12:11 | NUR ---
Patient eating lunch. No distress observed. Continue to monitor.
--- NOTE | 2022-01-15 14:04 | NUR ---
Patient sleeping supine. No distress observed. Continue to monitor.
--- NOTE | 2022-01-15 16:10 | NUR ---
Patient preparing to go up to [facility].
[2022-01-15] MEDS ORDERED: loperamide 2mg capsule PO PRN (16:50)
[2022-01-15] MEDS ORDERED: acetaminophen 325mg tablet PO PRN ×2 (16:50)
[2022-01-15] MEDS ORDERED: magnesium hydroxide 30ml (MOM) UD suspension PO PRN (16:50)
[2022-01-15] MEDS ORDERED: mag hydrox/Alum hydrox/simeth 30ml oral suspension PO PRN (16:50)
[2022-01-15] MEDS ORDERED: NICOTINE POLACRILEX 2 MG LOZENGE BC PRN (16:50)
[2022-01-15 16:51] VITALS: BP 119/75
--- NOTE | 2022-01-15 16:53 | NUR ---
Admit note: [facility] for DTS/GD at 1615. Pt is dirty and malodorous. He presents as depressed and reports that he hasn't been taking his medications and "Needs to get stabilized". He is not able to verbalize where he has been living and plans to "Jump off a bridge." Pt has history of bipolar, Schizophrenia, ADHD.
[2022-01-15 20:39] VITALS: BP 123/72
[2022-01-15] MEDS: ARIPIPRAZOLE 15 MG TABLET PO SCH (20:44)
--- NOTE | 2022-01-15 22:13 | NUR ---
Nursing Progress Note: Problem: Pt admitted to [facility] today on 5150 for DTS/GD at 1615. Pt is dirty and malodorous. He presents as depressed and reports that he hasn't been taking his medications and "Needs to get stabilized". He is not able to verbalize where he has been living and plans to "Jump off a bridge." Pt has history of bipolar, Schizophrenia, ADHD. Interventions: Maintained a safe and supportive environment, administered medication per orders with no adverse side effects, provided clear and simple instructions, provided redirection as needed, and maintained Q 15min safety checks. Response: Pt was in his room sleeping at change of shift. Pt states he just wants to sleep, and get his meds "fixed" Denies s/i stating "not right now just let me sleep!". Pt awaken for HS meds and becomes agitated "Its every 15 minutes with you people! I can't get any sleep around here!" Explained to pt I have his HS meds and he calmed down took his meds and requested a snack. Pt calm and thanked this sports book writer and went back to sleep. Plan: Crisis interruption, stabilization with medication adjustment, management and monitoring in a safe and therapeutic environment until stable. Addendum: 01/16/22 at 0118 by Rachael Nickerson RN pt woke c/o "racing thoughts." Pt feeling agitated and not being able to sleep, prn zyprexa provided.
[2022-01-16] MEDS: OLANZAPINE 5 MG TABLET PO PRN (01:17)
[2022-01-16 08:00] VITALS: BP 130/70
[2022-01-16] MEDS: atomoxetine 40 MG capsule PO SCH (08:44)
[2022-01-16] MEDS: carBAMazepine Ext. Release 200 MG TAB.ER.12H PO SCH ×2 (08:46→20:08)
--- NOTE | 2022-01-16 17:37 | NUR ---
NURSING PROGRESS NOTE Problem: Pt admitted to [facility] today on 5150 for DTS/GD at 1615. Pt is dirty and malodorous. He presents as depressed and reports that he hasn't been taking his medications and "Needs to get stabilized". He is not able to verbalize where he has been living and plans to "Jump off a bridge." Pt has history of bipolar, Schizophrenia, ADHD. Interventions: Maintained a safe and supportive environment, administered medication per orders with no adverse side effects, provided clear and simple instructions, provided redirection as needed, and maintained Q 15min safety checks. Response: Received patient sleeping at shift change. Pt presented irritable when awoken for breakfast and morning medication. Pt reports he slept horrible. Pt was reluctant with one to one saying I just want to sleep. You guys dont understand, I need hours of sleep. I get woke up every hour. 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 You just dont understand. Pt isolated to his room, coming out only to eat and have snack. Pt endorses SI, and then says I dont want to be bothered. Pt didnt answer any more questions. Plan: Crisis interruption, stabilization with medication adjustment, management and monitoring in a safe and therapeutic environment until stable.
[2022-01-16 19:41] VITALS: BP 104/56
[2022-01-16] MEDS: ARIPIPRAZOLE 15 MG TABLET PO SCH (20:08)
--- NOTE | 2022-01-16 21:19 | NUR ---
URSING PROGRESS NOTE Problem: Pt admitted to [facility] today on 5150 for DTS/GD at 1615. Pt is dirty and malodorous. He presents as depressed and reports that he hasn't been taking his medications and "Needs to get stabilized". He is not able to verbalize where he has been living and plans to "Jump off a bridge." Pt has history of bipolar, Schizophrenia, ADHD. Interventions: Maintained a safe and supportive environment, administered medication per orders with no adverse side effects, provided clear and simple instructions, provided redirection as needed, and maintained Q 15min safety checks. Response: Pt is napping at change of shift. Pt reports feeling tired and "I just want to sleep right now." Pt declined any needs at this time. Pleasant and cooperative took meds and went back to sleep. Plan: Crisis interruption, stabilization with medication adjustment, management and monitoring in a safe and therapeutic environment until stable. Addendum: 01/17/22 at 0346 by Rachael Nickerson RN Pt has MRSA positive lab result, provided MRSA education and discussed handwashing with patient. Pt states "I know."
[2022-01-17 08:00] VITALS: BP 128/80
[2022-01-17] MEDS: atomoxetine 40 MG capsule PO SCH (08:07)
[2022-01-17] MEDS: carBAMazepine Ext. Release 200 MG TAB.ER.12H PO SCH ×2 (08:07→19:29)
--- NOTE | 2022-01-17 14:33 | NUR ---
NURSING PROGRESS NOTE Problem: Pt admitted to [facility] today on 5150 for DTS/GD at 1615. Pt is dirty and malodorous. He presents as depressed and reports that he hasn't been taking his medications and "Needs to get stabilized". He is not able to verbalize where he has been living and plans to "Jump off a bridge." Pt has history of bipolar, Schizophrenia, ADHD. Interventions: 1:1 assessment, attempted to establish rapport, therapeutic communication, active listening, ensured contract for safety, medication administration/education/monitoring, and maintained Q15 min safety checks. Response: Pt was up for breakfast and cooperative with his medications. Pt allowed a brief physical assessment though was guarded and dismissive with this nurse. When asked if pt was feeling depressed he replied, "a little bit." Pt denied SI. Overheard pt speaking with the social sciences instructor. Pt is insistent that he is going home tomorrow and he would like it to be before 2 PM. Pt is mostly isolative to self. Pt did not appear to be responding to internal stimuli. Plan: Crisis interruption, stabilization with medication adjustment, management and monitoring in a safe and therapeutic environment until stable.
--- NOTE | 2022-01-17 16:41 | NUR ---
Called Sergey with [facility] to inquire if they would accept Kareem back. Sergey stated, "we can't rodeo with him anymore". Left message with [facility] (ph# [phone]) requesting a call back to inquire about bed availability for Kareem. ANGELLA Mari
[2022-01-17] MEDS: OLANZAPINE 5 MG TABLET PO PRN (19:27)
[2022-01-17] MEDS: ARIPIPRAZOLE 15 MG TABLET PO SCH (19:30)
[2022-01-17 20:00] VITALS: BP 127/93
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
[2022-01-18 07:39] VITALS: BP 127/64
[2022-01-18] MEDS: carBAMazepine Ext. Release 200 MG TAB.ER.12H PO SCH (08:28)
[2022-01-18] MEDS: atomoxetine 40 MG capsule PO SCH (08:28)
[2022-01-18] MEDS ORDERED: aripiprazole 400mg suspension ER syringe IM ONE (09:35)
--- NOTE | 2022-01-18 10:25 | NUR ---
Initial: Pt admit for DTS/GD. Currently on a regular diet and eating well, documented with 100% PO intake throughout LOS with the exception of 0% PO intake of two meals since admit. Per microphone boom operator pt participates in snacks. Pt meeting estimated nutrient needs at this time. LBM 01/14 though no GI symptoms per EMR. D/w dietary to send prunes and prune juice with next meal to assist with bowel regularity if pt truly has not had a BM in four days. Pt with PRN MoM available, not documented to be given. Will continue to follow and monitor need for further nutrition intervention. Recommendations: 1) Continue regular diet 2) Utilize PRN bowel care 3) Weekly scaled weights Addendum: 01/18/22 at [address] Amended: Links added.
[2022-01-18] MEDS ORDERED: ARIP15TA19 PO (13:06)
[2022-01-18] MEDS ORDERED: ATOM80CA3 PO (13:06)
[2022-01-18] MEDS ORDERED: NICO-907 BC (13:06)
[2022-01-18] MEDS ORDERED: CARB400T8 PO (13:06)
--- NOTE | 2022-01-18 13:30 | NUR ---
DISCHARGE PLAN Kareem is going to discharge today. He has follow up scheduled with [facility]. He is able to go to the [facility] and can receive services there. He plans on picking up his food stamp card upon discharge. ANGELLA Mari
--- NOTE | 2022-01-18 13:40 | NUR ---
DISCHARGE NOTE: Pt. discharged to [facility], Pt. discharged with all belongings and valuables. Pt. also given winter weather clothes. RN went over discharge paperwork with pt. including discharge medication, f/u appointments, firearms restriction, emergency phone numbers (including 911). Pt. verbalized understanding and signed all discharge paperwork. Pt. denies SI/HI, A/V hallucinations. Pt. is A&Ox4 and in no apparent distress. Pt. given bus ticket.
== END 2022-01-18 13:40 | disposition home or self-care (01) | DRG 750 ==
LOC: ER 21:16 → ED HOLD 01-15 13:30 → ADULT MH 01-15 16:26
PROVIDERS: ADMIT Psychiatry & Neurology Psychiatry; ATTEND Psychiatry & Neurology Psychiatry
DX: F25.0 Schizoaffective disorder, bipolar type (principal); R45.851 Suicidal ideations; F15.10 Other stimulant abuse, uncomplicated; Z20.822 Contact with and (suspected) exposure to COVID-19; Z60.2 Problems related to living alone; F12.90 Cannabis use, unspecified, uncomplicated; F17.210 Nicotine dependence, cigarettes, uncomplicated; K21.9 Gastro-esophageal reflux disease without esophagitis; I10 Essential (primary) hypertension; Z87.442 Personal history of urinary calculi; Z56.0 Unemployment, unspecified; Z59.00 Homelessness unspecified
CPT/HCPCS: 36415; 80053; 80305; 80320; 81003; 85025; 87081; 87811; 99285; J1630; J2060

== ENCOUNTER 2022-03-04 17:53 | Emergency (ER) | payer MEDICAID ==
[~2022-03-04] VITALS: Ht 177.8 cm; Wt 90.0 kg
[~2022-03-04 17:53] MED LIST changes: +ARIP15TA19 PO; -ARIP30TA22 PO; -BUPR1FIL54 BC; -CEPH-585 PO; +NICO-907 BC; -OLAN15TA35 PO; -Vitamins A And D TP
[2022-03-04] MEDS ORDERED: LORazepam 1 MG tablet PO ONE (18:20)
[2022-03-04 18:51] LABS: EOSINOPHILS # (AUTO) 0.1 X10'3 (0-0.9); HEMOGLOBIN 15.1 g/dl (14.0-17.9); MONOCYTES # (AUTO) 0.9 X10'3 (0-0.9)
[2022-03-04 18:53] LABS: BASOPHILS % (AUTO) 0.5 % (0-1); EOSINOPHILS % (AUTO) 1.5 % (0-6); HEMATOCRIT 44.6 % (42.0-52.0); LYMPHOCYTES # (AUTO) 3.1 X10'3 (1.1-4.8); LYMPHOCYTES % (AUTO) 30.9 % (21-51); MEAN CORPUSCULAR HEMOGLOBIN 29.7 PG (27.0-31.0); MEAN CORPUSCULAR HGB CONC 33.8 g/dL (33.0-36.5); MEAN CORPUSCULAR VOLUME 87.8 FL (78-98); MEAN PLATELET VOLUME 7.3 FL (7.4-10.4); NEUTROPHILS # (AUTO) 5.8 X10'3 (1.8-7.7); NEUTROPHILS % (AUTO) 58.1 % (42-75); PLATELET COUNT 311 X10'3 (140-440); RED BLOOD COUNT 5.08 X10'6 (4.70-6.10); RED CELL DISTRIBUTION WIDTH 14.3 % (11.5-14.5); WHITE BLOOD COUNT 9.9 X10'3 (4.5-11.0)
[2022-03-04 19:05] LABS: ALANINE AMINOTRANSFERASE 65 U/L (12-78); ALBUMIN 4.2 G/DL (3.4-5.0); ALBUMIN/GLOBULIN RATIO 1.4 (1.1-1.5); ALKALINE PHOSPHATASE 81 IU/L (46-116); ANION GAP 7 (8-16); ASPARTATE AMINO TRANSFERASE 31 U/L (10-37); BILIRUBIN,TOTAL 0.9 MG/DL (0.1-1.0); BLOOD UREA NITROGEN 15 MG/DL (7-18); BUN/CREATININE RATIO 24.2 (5.4-32.0); CALCIUM 9.6 MG/DL (8.5-10.1); CHLORIDE 103 MMOL/L (99-107); CREATININE 0.62 MG/DL (0.60-1.10); GLUCOSE 110 MG/DL (70-104); POTASSIUM 3.7 MMOL/L (3.5-5.1); SODIUM 138 MMOL/L (135-145); TOTAL CARBON DIOXIDE 27.6 MMOL/L (24-32); TOTAL PROTEIN 7.3 G/DL (6.4-8.2); eGFR > 90 ML/MIN
[2022-03-04 19:07] LABS: ETHANOL < 0.010 GM/DL (0.0-0.010)
--- NOTE | 2022-03-04 19:25 | NUR ---
Rceived patient from main ED. Patient disheveled and asked for a snack. Brought patient fluids and am waiting for a UA at this time, patient reports being unable to urinate at this time. Patient sitting upo and eating at this time.
--- NOTE | 2022-03-04 20:11 | NUR ---
patient asleep at this time, unable to complete MH assessment
[2022-03-04] MEDS ORDERED: NO HOME MEDS (20:36)
--- NOTE | 2022-03-04 22:34 | NUR ---
patient laying down on back and appears to be sleeping at this time.
--- NOTE | 2022-03-04 23:55 | NUR ---
Patient laying on back in bed, appears to be sleeping at this time.
--- NOTE | 2022-03-05 01:39 | NUR ---
patient woke up and took a drink of water from his pitcher and went back to sleep.
--- NOTE | 2022-03-05 04:12 | NUR ---
patient appears to be sleeping at this time.
[2022-03-05 04:40] LABS: CLARITY,URINE CLEAR (Clear); COLOR,URINE YELLOW (Yellow); GLUCOSE, URINE NEGATIVE (Neg); KETONES,URINE TRACE mg/dl (Neg); LEUKOCYTE ESTERASE ,URINE NEGATIVE (Neg); NITRITES, URINE NEGATIVE (Neg); OCCULT BLOOD,URINE NEGATIVE (Neg); PH,URINE 5.5 (4.8-8.0); PROTEIN,URINE NEGATIVE (Neg); UROBILINOGEN,URINE 0.2 E.U/dL (0.2-1.0)
[2022-03-05 04:43] LABS: UA COLLECTION TYPE NON-SPECIFIED
[2022-03-05 04:54] LABS: URINE AMPHETAMINE SCREEN POSITIVE (Neg); URINE BARBITUATE SCREEN NEGATIVE (Neg); URINE BENZODIAZEPINES SCREEN NEGATIVE (Neg); URINE CANNABINOID SCREEN POSITIVE (Neg); URINE COCAINE SCREEN NEGATIVE (Neg); URINE METHADONE SCREEN NEGATIVE (Neg); URINE OPIATE SCREEN POSITIVE (Neg); URINE PHENCYCLIDINE SCREEN NEGATIVE (Neg)
[2022-03-05 05:45] VITALS: BP 110/69
--- NOTE | 2022-03-05 06:15 | NUR ---
Patient sleeping supine. No distress observed. Continue to monitor.
--- NOTE | 2022-03-05 08:10 | NUR ---
Patient eating breakfast. No distress observed. Continue to monitor.
--- NOTE | 2022-03-05 09:30 | NUR ---
Ellis FRIED, speaking with patient. Continue to monitor.
--- NOTE | 2022-03-05 09:50 | NUR ---
[facility] getting angry [facility] he needs to sleep. Ellis is speaking to patient about his drug use and him not following up with his mental health. Patient getting more angry and just wants to leave. Ellis is going to speak to Dr. Barakat about getting him discharged. Continue to monitor.
== END 2022-03-05 09:55 | disposition home or self-care (01) ==
LOC: ER 17:53
DX: R45.851 Suicidal ideations (principal); Z20.822 Contact with and (suspected) exposure to COVID-19; F20.9 Schizophrenia, unspecified; I10 Essential (primary) hypertension; F31.9 Bipolar disorder, unspecified; F12.90 Cannabis use, unspecified, uncomplicated; F15.90 Other stimulant use, unspecified, uncomplicated; Z87.442 Personal history of urinary calculi; Z98.890 Other specified postprocedural states; Z60.2 Problems related to living alone; Z56.0 Unemployment, unspecified; Z59.00 Homelessness unspecified
CPT/HCPCS: 36415; 80053; 80305; 80320; 81003; 85025; 87811; 99285

== ENCOUNTER 2022-03-21 21:32 | Emergency (ER) | payer MEDICAID ==
[~2022-03-21] VITALS: Ht 177.8 cm; Wt 90.9 kg
[~2022-03-21 21:32] MED LIST changes: -ARIP15TA19 PO; -ATOM80CA3 PO; -CARB400T8 PO; -NICO-907 BC; +NO HOME MEDS
[2022-03-21 21:41] VITALS: BP 127/83
[2022-03-21] MEDS ORDERED: SULF1TAB45 PO (22:43)
== END 2022-03-22 00:02 | disposition home or self-care (01) ==
LOC: ER 21:33
DX: M79.601 Pain in right arm (principal); Z53.21 Procedure and treatment not carried out due to patient leaving prior to being seen by health care provider
CPT/HCPCS: 73110

== ENCOUNTER 2022-03-30 02:46 | Emergency (ER) | payer MEDICAID ==
[~2022-03-30] VITALS: Ht 177.8 cm; Wt 81.8 kg
[2022-03-30 02:54] VITALS: BP 140/82
== END 2022-03-30 04:20 | disposition left against medical advice (07) ==
LOC: ER 02:46
DX: S61.419A Laceration without foreign body of unspecified hand, initial encounter (principal); Z53.21 Procedure and treatment not carried out due to patient leaving prior to being seen by health care provider; X58.XXXA Exposure to other specified factors, initial encounter; Y93.89 Activity, other specified; Y92.89 Other specified places as the place of occurrence of the external cause; Y99.8 Other external cause status

== ENCOUNTER 2022-04-01 20:51 | Emergency (ER) | payer MEDICAID | END 2022-04-01 23:08 | disposition left against medical advice (07) | LOC: ER 20:53 | DX: F29 Unspecified psychosis not due to a substance or known physiological condition (principal); Z53.21 Procedure and treatment not carried out due to patient leaving prior to being seen by health care provider ==

== ENCOUNTER 2022-04-05 06:17 | Emergency (ER) | payer MEDICAID ==
[~2022-04-05] VITALS: Ht 177.8 cm; Wt 9.1 kg
[2022-04-05 06:30] VITALS: BP 124/86
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
[2022-04-05 09:19] LABS: BASOPHILS % (AUTO) 0.4 % (0-1); EOSINOPHILS # (AUTO) 0.1 X10'3 (0-0.9); EOSINOPHILS % (AUTO) 1.3 % (0-6); HEMATOCRIT 38.1 % (42.0-52.0); HEMOGLOBIN 12.8 g/dl (14.0-17.9); LYMPHOCYTES # (AUTO) 2.4 X10'3 (1.1-4.8); LYMPHOCYTES % (AUTO) 25.4 % (21-51); MEAN CORPUSCULAR HEMOGLOBIN 29.2 PG (27.0-31.0); MEAN CORPUSCULAR HGB CONC 33.6 g/dL (33.0-36.5); MEAN PLATELET VOLUME 7.4 FL (7.4-10.4); MONOCYTES # (AUTO) 0.7 X10'3 (0-0.9); MONOCYTES % (AUTO) 7.3 % (2-12); NEUTROPHILS # (AUTO) 6.1 X10'3 (1.8-7.7); NEUTROPHILS % (AUTO) 65.6 % (42-75); PLATELET COUNT 295 X10'3 (140-440); RED BLOOD COUNT 4.39 X10'6 (4.70-6.10); RED CELL DISTRIBUTION WIDTH 13.6 % (11.5-14.5); WHITE BLOOD COUNT 9.3 X10'3 (4.5-11.0)
[2022-04-05 09:38] LABS: ALANINE AMINOTRANSFERASE 42 U/L (12-78); ALBUMIN 3.4 G/DL (3.4-5.0); ALBUMIN/GLOBULIN RATIO 0.9 (1.1-1.5); ALKALINE PHOSPHATASE 83 IU/L (46-116); ANION GAP 7 (8-16); ASPARTATE AMINO TRANSFERASE 19 U/L (10-37); BILIRUBIN,TOTAL 0.4 MG/DL (0.1-1.0); BLOOD UREA NITROGEN 16 MG/DL (7-18); CALCIUM 8.8 MG/DL (8.5-10.1); CHLORIDE 108 MMOL/L (99-107); CREATININE 0.41 MG/DL (0.60-1.10); GLUCOSE 99 MG/DL (70-104); POTASSIUM 3.7 MMOL/L (3.5-5.1); SODIUM 140 MMOL/L (135-145); TOTAL CARBON DIOXIDE 25.2 MMOL/L (24-32); eGFR > 90 ML/MIN
[2022-04-05 09:49] LABS: ETHANOL < 0.010 GM/DL (0.0-0.010)
--- NOTE | 2022-04-05 11:25 | NUR ---
I AKED PT TO CHANGE INTO GREEN SCRUBS, HE YELLED AT ME "LEAVE THE ROOM RIGHT NOW, FUCK YOU!" I ASKED PT TO CHANGE AND LEFT THE ROOM. I WENT BACK TO CHECK ON PT AND HE WAS GONE FROM THE ROOM, RESTROOMS WERE CHECKED. PT ELOPED.
== END 2022-04-05 11:30 | disposition left against medical advice (07) ==
LOC: ER 06:17
DX: R45.851 Suicidal ideations (principal); Z20.822 Contact with and (suspected) exposure to COVID-19; F15.10 Other stimulant abuse, uncomplicated; F32.A Depression, unspecified; I10 Essential (primary) hypertension; F31.9 Bipolar disorder, unspecified; F20.9 Schizophrenia, unspecified; F12.10 Cannabis abuse, uncomplicated; Z59.00 Homelessness unspecified; Z56.0 Unemployment, unspecified; Z79.899 Other long term (current) drug therapy
CPT/HCPCS: 36415; 80053; 80320; 84443; 85025; 87811; 99285

== ENCOUNTER 2022-04-06 00:04 | Emergency (ER) | payer MEDICAID | END 2022-04-06 02:24 | disposition left against medical advice (07) | LOC: ER 00:06 | DX: J00 Acute nasopharyngitis [common cold] (principal); Z53.21 Procedure and treatment not carried out due to patient leaving prior to being seen by health care provider ==

== ENCOUNTER 2022-04-08 20:00 | Emergency (ER) | payer MEDICAID ==
[~2022-04-08] VITALS: Ht 180.3 cm; Wt 90.9 kg
[2022-04-08 20:12] VITALS: BP 126/76
== END 2022-04-09 | disposition left against medical advice (07) ==
LOC: ER 04-09 00:41
DX: Z76.0 Encounter for issue of repeat prescription (principal); Z53.21 Procedure and treatment not carried out due to patient leaving prior to being seen by health care provider

== ENCOUNTER 2022-04-11 02:16 | Emergency (ER) | payer MEDICAID ==
[~2022-04-11] VITALS: Ht 177.8 cm; Wt 85.0 kg
[2022-04-11 02:23] VITALS: BP 143/100
[2022-04-11] MEDS ORDERED: haloperidol 5mg tablet PO ONE (02:40)
[2022-04-11] MEDS ORDERED: ceFAZolin 1gm IM kit IM ONE (02:40)
[2022-04-11] MEDS ORDERED: SULF1TAB49 PO (02:41)
[2022-04-11] MEDS ORDERED: HALO2TAB PO (02:41)
--- NOTE | 2022-04-11 05:11 | NUR ---
Patient did not recieve full dose of IM abx. Half way through injection patient began squirming around the bed and refused further injection. Attempted to educate risk/benefit with patient, unwilling to comply. MD aware.
== END 2022-04-11 05:13 | disposition home or self-care (01) ==
LOC: ER 02:16
DX: L02.31 Cutaneous abscess of buttock (principal); I10 Essential (primary) hypertension; F31.9 Bipolar disorder, unspecified; F20.9 Schizophrenia, unspecified; F12.90 Cannabis use, unspecified, uncomplicated; F15.90 Other stimulant use, unspecified, uncomplicated; Z60.2 Problems related to living alone; Z59.00 Homelessness unspecified; Z56.0 Unemployment, unspecified; Z79.899 Other long term (current) drug therapy
CPT/HCPCS: 96372; 99283; J0690

== ENCOUNTER 2024-05-31 09:42 | Emergency (ER) | payer MEDICAID ==
[~2024-05-31] VITALS: Ht 180.3 cm; Wt 123.8 kg
[~2024-05-31 09:42] MED LIST changes: +HALO2TAB PO
[2024-05-31 09:44] VITALS: BP 161/119; PULSE 100; RESP 18; TEMP 97.3; O2SAT 98
[2024-05-31] MEDS: ondansetron/PF 4mg/2ml inj IV ONE (10:29)
[2024-05-31] MEDS: pantoprazole 40 MG vial IV ONE (10:29)
[2024-05-31] MEDS ORDERED: ONDA-243 PO (10:36)
[2024-05-31 10:40] LABS: BASOPHILS % (AUTO) 0.5 % (0-1); EOSINOPHILS # (AUTO) 0.1 X10'3 (0-0.9); EOSINOPHILS % (AUTO) 0.8 % (0-6); HEMATOCRIT 48.9 % (42.0-52.0); HEMOGLOBIN 16.2 g/dl (14.0-17.9); LYMPHOCYTES # (AUTO) 2.9 X10'3 (1.1-4.8); LYMPHOCYTES % (AUTO) 28.8 % (21-51); MEAN CORPUSCULAR HEMOGLOBIN 28.5 PG (27.0-31.0); MEAN CORPUSCULAR HGB CONC 33.1 g/dL (33.0-36.5); MEAN CORPUSCULAR VOLUME 86.1 FL (78-98); MEAN PLATELET VOLUME 7.9 FL (7.4-10.4); MONOCYTES # (AUTO) 0.6 X10'3 (0-0.9); MONOCYTES % (AUTO) 5.6 % (2-12); NEUTROPHILS # (AUTO) 6.5 X10'3 (1.8-7.7); NEUTROPHILS % (AUTO) 64.3 % (42-75); PLATELET COUNT 304 X10'3 (140-440); RED BLOOD COUNT 5.68 X10'6 (4.70-6.10); RED CELL DISTRIBUTION WIDTH 13.7 % (11.5-14.5); WHITE BLOOD COUNT 10.1 X10'3 (4.5-11.0)
[2024-05-31] MEDS: normal saline 1000ml 1,000 ML IV ONE (10:49)
[2024-05-31] MEDS: acetaminophen 1,000mg/100ml IV 100 ML IV ONE (10:49)
[2024-05-31 11:04] LABS: ALANINE AMINOTRANSFERASE 100 U/L (12-78); ALBUMIN 4.6 G/DL (3.4-5.0); ALBUMIN/GLOBULIN RATIO 1.3 (1.1-1.5); ALKALINE PHOSPHATASE 75 IU/L (46-116); ANION GAP 16 (8-16); ASPARTATE AMINO TRANSFERASE 56 U/L (10-37); BILIRUBIN,TOTAL 0.8 MG/DL (0.1-1.0); BLOOD UREA NITROGEN 14 MG/DL (7-18); BUN/CREATININE RATIO 15.4 (10.0-20.0); CALCIUM 9.6 MG/DL (8.5-10.1); CHLORIDE 105 MMOL/L (99-107); CREATININE 0.91 MG/DL (0.60-1.10); GLUCOSE 127 MG/DL (70-104); LIPASE 29 U/L (16-77); POTASSIUM 3.8 MMOL/L (3.5-5.1); SODIUM 142 MMOL/L (135-145); TOTAL CARBON DIOXIDE 21.3 MMOL/L (24-32); TOTAL PROTEIN 8.1 G/DL (6.4-8.2); eCRCL 117 ML/MIN; eGFR > 90 ML/MIN
[2024-05-31 11:23] LABS: BILIRUBIN,URINE SMALL (Neg); CLARITY,URINE SLIGHTLY CLOUDY (Clear); GLUCOSE, URINE NEGATIVE (Neg); KETONES,URINE TRACE mg/dl (Neg); LEUKOCYTE ESTERASE ,URINE NEGATIVE (Neg); NITRITES, URINE NEGATIVE (Neg); OCCULT BLOOD,URINE NEGATIVE (Neg); PH,URINE 5.5 (4.8-8.0); PROTEIN,URINE 100 mg/dl (Neg); UROBILINOGEN,URINE 0.2 E.U/dL (0.2-1.0)
[2024-05-31 11:26] LABS: UA COLLECTION TYPE URINAL
[2024-05-31 11:27] LABS: COLOR,URINE DARK YELLOW (Yellow)
[2024-05-31 11:30] LABS: BACTERIA,URINE 2+ /HPF (Neg); RBC,URINE 0-2 /HPF (0-2); SQUAMOUS EPITHELIAL CELL,UR FEW /LPF (FEW); WBC,URINE 0-4 /HPF (0-4)
[2024-05-31 11:31] LABS: FINE GRANULAR CAST 0-3 /LPF (NEGATIVE)
[2024-05-31] MEDS ORDERED: DICY10CA88 PO (11:47)
[2024-05-31] MEDS ORDERED: OMEP40CA21 PO (11:47)
[2024-05-31] MEDS: famotidine/PF 10 mg/ml inj IV ONE (12:09)
== END 2024-05-31 12:19 | disposition home or self-care (01) ==
LOC: ER 09:42
DX: R11.2 Nausea with vomiting, unspecified (principal); R10.13 Epigastric pain; I10 Essential (primary) hypertension; F20.9 Schizophrenia, unspecified; F32.A Depression, unspecified; F12.90 Cannabis use, unspecified, uncomplicated; F15.90 Other stimulant use, unspecified, uncomplicated; Z98.890 Other specified postprocedural states; Z60.2 Problems related to living alone; Z56.0 Unemployment, unspecified; Z59.00 Homelessness unspecified; Z79.899 Other long term (current) drug therapy; Z87.442 Personal history of urinary calculi
CPT/HCPCS: 36415; 80053; 81001; 83690; 85025; 96374; 96375; 99284; J0131; J2405; J2470; J3490; J7030; 96361

== ENCOUNTER 2024-08-29 07:11 | Inpatient (IN) | payer MEDICAID ==
[~2024-08-29] VITALS: Ht 177.8 cm; Wt 119.0 kg
[~2024-08-29 07:11] MED LIST changes: +ONDA-243 PO
--- NOTE | 2024-08-29 08:07 | Physician Documentation ---
History of Present Illness ~ Chief Complaint: Wound Stated Complaint: FINGER PAIN Time Seen by MD: 07:55 Primary Medical Doctor: EMMANUEL RESTREPO HPI 38 yom h/o methamphetamine use p/w left thumb wound x 2 days. Noticed a pimple like lesion on it two days ago which he opened with a razor blade and got pus out, it has rapidly spread down his thumb today and now causes him severe pain with any flexion. revised history- he now tells me it has been going on for one week. Tetanus within 5 years?: No Medication Reconciliation Allergies: Coded Allergies: No Known Allergies (Unverified , 03/30/22) Scheduled Haloperidol (Haloperidol), 1 TAB PO Q12H Scheduled PRN ONDANSETRON ODT 4mg tablet (Ondansetron Odt), 1 TAB PO Q6H PRN PRN for nausea/vomiting Miscellaneous Medications Home Med List (No Home Medications), (Reported) Past Medical History Past Medical History: Hypertension, Kidney Stones, Bipolar, Depression, Schizophrenia Past Surgical History: orthopedic surgeries Patient History: Patient reports no known family medical history. Alcohol Use: None Drug Use: marijuana, methamphetamine Lives with: Alone Lives In: Homeless Occupation: unemployed Review of Systems All Other Systems at this time: Reviewed and Negative Constitutional: Denies: fever Physical Exam Vital Signs: RN Vital Signs have been reviewed: Yes, Temperature: 97.3, Source: Temporal, Heart Rate: 122, Respiratory Rate: 15, BP: 154/110, Pulse Oximetry: 98, Weight: 119.000 Physical Exam well appearing no distress awake alert oriented msk: left thumb symmetric swelling and erythema, no active thumb flexion, pain with passive extension Progress Progress Note d/w Dr. Olivera agrees with need for IV abx 855 d/w Dr. Peters who graciously accepts for admission Results/Orders Reviewed/noted all lab results: Yes Results/Orders Orders - ARIANE ELIZONDO MD ESR (08/29/24 07:58) Vancomycin/Ns 1 Gm Add-[place] (Vancomyc (08/29/24 08:05) Finger(S) (08/29/24 08:03) Page Hospitalist (08/29/24 08:42) Fill Out Med Reconciliation (08/29/24 08:42) Completed Orders - ARIANE ELIZONDO MD Cbc/Diff (08/29/24 07:58) BMP (08/29/24 07:58) C-Reactive Protein (08/29/24 07:58) Ceftriaxone 2gm/D5w 50ml Bag (Rocephin 2 (08/29/24 08:00) Vancomycin*Pharmacy To Dose* (Vancomycin (08/29/24 08:00) Finger(S) (08/29/24 08:03) Medications Received in ER Medications (Trade) Dose Ordered Sig/Forrest Route PRN Reason Start Time Stop Time Status Last Admin Dose Admin Ceftriaxone Sodium/Dextrose 50 ml @ 100 mls/hr ONCE ONCE IV 08/29/24 08:00 08/29/24 08:29 DC 08/29/24 08:32 100 MLS/HR Vital Signs 08/29/24 07:15 Temp 97.3 Pulse 122 Resp 15 B/P (MAP) 154/110 Pulse Ox 98 Laboratory Tests Test 08/29/24 08:16 White Blood Count 8.9 Red Blood Count 5.19 Hemoglobin 15.4 Hematocrit 44.3 Mean Corpuscular Volume 85.4 Mean Corpuscular Hemoglobin 29.7 Mean Corpuscular Hemoglobin Concent 34.8 Red Cell Distribution Width 14.0 Platelet Count 282 Mean Platelet Volume 8.1 Neutrophils (%) (Auto) 71.0 Lymphocytes (%) (Auto) 21.3 Monocytes (%) (Auto) 6.2 Eosinophils (%) (Auto) 0.9 Basophils (%) (Auto) 0.6 Neutrophils # (Auto) 6.3 Lymphocytes # (Auto) 1.9 Monocytes # (Auto) 0.6 Eosinophils # (Auto) 0.1 Basophils # (Auto) 0.1 CBC Comment Sodium Level 138 Potassium Level 4.1 Chloride Level 102 Carbon Dioxide Level 26.7 Anion Gap 9 Blood Urea Nitrogen 9 Creatinine 0.68 Estimated GFR/1.73 m2 > 90 BUN/Creatinine Ratio 13.2 Glucose Level 95 Calcium Level 9.4 C-Reactive Protein 5.86 H Albumin 4.0 Chemistry Comments EKG/XRAY/CT/US/VASC/MRI Bone/Soft Tissue X-Ray (Ext.) : Additional Comment I Independently interpreted XR- no thumb fracture dislocation or FB Medical Decision Making Additional info obtained from: old records Findings d/c summary 02/01 Differential Dx:Considerations: Include: Abscess, Cellulitis, Healing wound Departure Disposition: ADMITTED INPATIENT Admitted to Inpatient Unit: to hospitalist Impression: Primary Impression: Flexor tenosynovitis of thumb Referrals: NO PRIMARY CARE PROVIDER (PCP) Signature Scribe Signature: na Attestation: ARIANE Cedeno MD Aug 29, 2024 08:07
[2024-08-29 08:27] LABS: MEAN PLATELET VOLUME 8.1 FL (7.4-10.4); RED CELL DISTRIBUTION WIDTH 14.0 % (11.5-14.5)
[2024-08-29] MEDS: CefTRIAXone 2gm/D5W 50ml BAG 50 ML IV ONE (08:32)
[2024-08-29 08:39] LABS: CREATININE 0.68 MG/DL (0.60-1.10); TOTAL CARBON DIOXIDE 26.7 MMOL/L (24-32); eCRCL 152 ML/MIN; eGFR > 90 ML/MIN
--- NOTE | 2024-08-29 08:45 | RADIOLOGY REPORT ---
DI FINGER(S), DIGITALCASSETTE, FINGERS, PA INDICATION: thumb flexor tenosynovitis TECHNICAL DATA: Frontal view of the left hand and lateral and oblique views of the left thumb were ob tained. COMPARISON: None FINDINGS: No acute fracture or dislocation of the thumb. Chronic appearing fracture of the scaphoid. Soft tiss ues are unremarkable. IMPRESSION: 1. No acute fracture or dislocation in the thumb. 2. Chronic fracture of the scaphoid.
[2024-08-29] MEDS ORDERED: potassium Cl 20 mEq SR tablet PO PRN ×2 (08:50)
[2024-08-29] MEDS ORDERED: potassium Cl 40MEQ/1/2NS 520ml 520 ML IV PRN (08:50)
[2024-08-29] MEDS ORDERED: magnesium sulf-water 2g/50mL 50 ML IV PRN (08:50)
[2024-08-29] MEDS ORDERED: magnesium Cl slow-release 64mg tablet PO PRN (08:50)
[2024-08-29] MEDS ORDERED: magnesium sulf-water 4G/100mL 100 ML IV PRN (08:50)
[2024-08-29] MEDS: vancomycin/NS 1 GM ADD-VANTAGE 250 ML X 1 DOSE IV ONE (09:04)
[2024-08-29] MEDS ORDERED: ARIP400S3 IM (09:51)
[2024-08-29] MEDS ORDERED: ARIP960S IM (09:55)
[2024-08-29 10:15] VITALS: BP 172/108; PULSE 82; RESP 18; TEMP 96.5; O2SAT 100
[2024-08-29] MEDS: normal saline 1000ml 1,000 ML IV SCH (10:30)
[2024-08-29] MEDS: nicotine 14mg patch - 24hr TD SCH (13:10)
[2024-08-29] MEDS: HYDROcodone/acetaminophen 5mg/325mg tablet PO PRN (13:58)
[2024-08-29] MEDS: vancomycin/NS 1 GM ADD-VANTAGE 250 ML IV SCH (17:14)
[2024-08-29 18:00] VITALS: BP 146/82; PULSE 76; RESP 18; TEMP 98.2; O2SAT 97
[2024-08-29 20:00] VITALS: RESP 18; O2SAT 97
[2024-08-29] MEDS: heparin, porcine 5000 units/ml vial SQ SCH (20:27)
--- NOTE | 2024-08-29 20:59 | HISTORY AND PHYSICAL ---
History & Physical Providers to ~ History of Present Illness Reason for Admit\Complaint: Pains over left thumb getting worse History of Present Illness 38 yom h/o methamphetamine use p/w left thumb wound x 7 days. Noticed a pimple like lesion on it which he opened with a razor blade and got pus out, it has rapidly spread down his thumb today and now causes him severe pain with any flexion. Per patient pain was mainly over the hand but now it is spreading to the left wrist in forearm also. He denied any IV drug use . Patient is having difficulty doing in making fist unable to flex his thumb. Patient currently does not have any primary care physician he follows in [facility] for his bipolar and schizoaffective disorder. He takes Abilify injections every two months. Patient denies any other symptoms no other medical issues. He is trying to get the disability due to his psychiatric issues and currently does not work, he is able to ambulate Allergies: Coded Allergies: No Known Allergies (Unverified , 03/30/22) Home Medications Home Medications Active Reported Abilify Asimtufii (Aripiprazole) 960 Mg/3.2 Ml Suser.syr 960 Mg IM Q60 DAYS Family History Family History: Patient reports no known family medical history. Past Social History Social History Comment He is trying to get the disability due to his psychiatric issues and currently does not work, he is able to ambulate Patient denied any drug history to me and he mentioned that he use weed which he used three weeks back but his urine drug screen positive for meth. Patient does not feel he use any alcohol or any tobacco ROS ROS Review of system as mentioned above in HPI rest of the review of system unremarkable Exam Vitals: Vital Signs Date Time Temp Pulse Resp B/P (MAP) Pulse Ox O2 Delivery O2 Flow Rate FiO2 08/29/24 20:31 17 08/29/24 13:57 82 08/29/24 10:15 96.5 172/108 (129) 100 Room Air 08/29/24 09:51 0 General: General-patient not in any acute distress, alert awake oriented, morbidly obese, chronically ill-appearing HEENT-atraumatic normocephalic, neck supple without elevated JVD, no thyromegaly or carotid bruit. No lymphadenopathy bilaterally. Eyes-no icterus or pallor seen in eyes Chest-clear to auscultation bilaterally, breathing nonlabored no tachypnea, no wheezing, no crepitation, no crackles. Heart-S1-S2 normal, regular heart rate no murmur Abdomen bowel sounds positive on auscultation, soft nondistended nontender no guarding, no rigidity Skin/ Extremity- no pedal edema able to move all 4 extremities. left thumb symmetric swelling and erythema, no active thumb flexion, pain with passive extension. No erythema noticed over the left wrist and forearm Neurology-grossly intact, nonfocal alert awake oriented Psychiatry - patient is not confused or agitated cooperated during physical examination Diagnostic Data Last Recorded Lab Results: 08/29/24 0816 08/29/24 0816 Advance Care Planning Advanced Care plannin - 30 Minutes Additional Plan Patient is 38-year-old male with known history of bipolar and schizoaffective disorder. He is admitted today for flexor tenosynovitis of left thumb. Dr. Olivera aware regarding this patient's admission and contacted by ER provider. He is willing to evaluate the patient. We will start the patient on IV antibiotics IV fluids pain medication ordered for pain control. We will do patient's home medication reconciliation once updated in medical record system by nursing staff or pharmacist. We will continue to monitor patient's labs and vitals. Patient denied any drug history to me and he mentioned that he use weed which he used three weeks back but his urine drug screen positive for meth. His blood pressure is also uncontrolled started on antihypertensive medications today. Code status discussed with the patient patient wishes to stay full code. Patient's current condition is guarded I will continue to follow patient in AM . Date of Service: Aug 29, 2024 Billing Provider: ZORAN STRICKLAND MD Common Visit Codes: [id number] INP/OBS CARE (HIGH) Secondary Visit Codes: [id number] CARE PLAN 30 MINUTES ZORAN STRICKLAND MD Aug 29, 2024 20:59
[2024-08-29 22:00] VITALS: BP 114/76; PULSE 111; RESP 17; TEMP 97.8; O2SAT 98
[2024-08-30] VITALS (17 sets, daily range): BP systolic 88–138; BP diastolic 48–84; PULSE 56–97; RESP 16–27; TEMP 96.8–97.7; O2SAT 93–98
[2024-08-30 00:21] LABS: URINE AMPHETAMINE SCREEN POSITIVE (Neg); URINE BARBITUATE SCREEN NEGATIVE (Neg); URINE BENZODIAZEPINES SCREEN NEGATIVE (Neg); URINE CANNABINOID SCREEN POSITIVE (Neg); URINE COCAINE SCREEN NEGATIVE (Neg); URINE METHADONE SCREEN NEGATIVE (Neg); URINE OPIATE SCREEN POSITIVE (Neg); URINE PHENCYCLIDINE SCREEN NEGATIVE (Neg)
[2024-08-30] MEDS: HYDROcodone/acetaminophen 10/325mg tab PO PRN (04:15)
[2024-08-30 06:40] LABS: MEAN PLATELET VOLUME 8.4 FL (7.4-10.4); RED CELL DISTRIBUTION WIDTH 14.0 % (11.5-14.5)
[2024-08-30 06:49] LABS: APTT 30 SECONDS (22-32); INR 1.0 INR
[2024-08-30 07:16] LABS: CREATININE 0.52 MG/DL (0.60-1.10); TOTAL CARBON DIOXIDE 22.0 MMOL/L (24-32); eCRCL 199 ML/MIN; eGFR > 90 ML/MIN
[2024-08-30] MEDS: VANCOMYCIN LEVEL IV ONE ×2 (08:23→16:30)
[2024-08-30] MEDS ORDERED: fentaNYL/PF 50MCG/1 ML 2ML syringe ONE ×2 (10:14→10:35)
[2024-08-30] MEDS ORDERED: midazolam 1 mg/ML 2ml injection ONE (10:14)
[2024-08-30] MEDS ORDERED: bacitracin 15gm ointment TP ONE (10:15)
[2024-08-30] MEDS ORDERED: BUPIVAcaine/PF 2.5mg/ml (0.25%) 10ml vial ONE (10:15)
[2024-08-30] MEDS ORDERED: propofol inj 20 ML IV ONE (10:27)
[2024-08-30] MEDS: BUPIVAcaine/PF 2.5 mg/ml (0.25%) 30ml vial IJ ONE (10:42)
[2024-08-30] MEDS ORDERED: hydrALAZINE 20mg/ml inj. IV PRN (11:05)
[2024-08-30] MEDS ORDERED: morphine 4 MG/ML inj SYRINge IV PRN (11:05)
[2024-08-30] MEDS ORDERED: ondansetron/PF 4mg/2ml inj IV PRN (11:05)
[2024-08-30] MEDS ORDERED: HYDROmorphone/PF 0.2 MG/ML SYRINGE IV PRN ×2 (11:05)
[2024-08-30] MEDS: ringers solution, lacted 1,000 ML IV SCH (11:05)
[2024-08-30] MEDS ORDERED: labetalol 20mg/4ml (5mg/ml) syringe IV PRN (11:05)
--- NOTE | 2024-08-30 11:11 | CONSULTATION REPORT ---
History of Present Illness Providers to CC ~ Reason for Admit\Admit Dx: Pains over left thumb getting worse Refering MD: EMMANUEL RESTREPO History of Present Illness Orthopedic consultation left thumb infection. History of present illness: Patient presented after trying to treat his infection involving his left thumb. Proximally seven days prior to his admission he noticed a pimple in his thumb on the thumb pad just proximal of the tip of the thumb that was painful. He self-treated with a razor blade to drain the pus and developed significant progressive swelling involving his thumb with swelling and erythema of the dorsum of his wrist and thumb. He was admitted for possible tenosynovitis and abscess formation of the left thumb and placed on intravenous vancomycin treatment. Past medical/surgical history is significant for bipolar disorder with schizoaffective component on medications. History of methamphetamine abuse. Review of systems: Patient denies any other joint pain extremity pain neck or back pain. Objective: Examination reveals on today's exam day of examination was 08/28 revealed reduced inflammation and swelling of the dorsum of his hand at and distal to the wrist. No forearm swelling or erythema. Is able to actively flex his thumb at the IP joint without significant pain two on today's exam. Patient had significant swelling and evidence of a punctate or puncture wound of the top of his thumb into the palm pad of the thumb opposite is nail. Repeat examination on today's date 08/30/2024 revealed a continued improvement but with increasing purulence subcutaneous the on the radial border of the thumb. Improved range of motion to his IP joint. X-ray warts are reveal no acute bony involvement evidence of osteomyelitis. Mild soft tissue swelling. History of an old scaphoid fracture. Assessment: Patient has developing felon involving the palmar aspect of his thumb without mariel evidence of septic tenosynovitis. Plan: Urgent I and D of his Phalen to prevent progressive infection. Plan is to make an open incision of the radial aspect of the thumb to the tip of the thumb decompressing the felon and packing it with a iodoform dressing and begin wound care treatment. Patient was informed of the indications risks benefits limitations and potential complications from the surgery. Was the surely will have some decreased sensation of the radial aspect of his thumb at the fingertip. He was informed of these as agreed to proceed with surgery on an urgent basis I obtained informed consent. Thank you for the consultation Allergies: Coded Allergies: No Known Allergies (Unverified , 2/17/23) Home Medications Home Medications Active Reported Abilify Asimtufii (Aripiprazole) 960 Mg/3.2 Ml Suser.syr 960 Mg IM Q60 DAYS Past Family History Family History: Patient reports no known family medical history. Physical Exam Last Vital Signs Recorded: Temperature: 97.4, Source: Temporal, Heart Rate: 89, Respiratory Rate: 16, BP: 114/63, Pulse Oximetry: 97, Weight: 119.000 Results Diagram Lab Result Diagram: 08/30/24 0614 08/30/24 0614 EKVIN RAYGOZA MD Aug 30, 2024 11:11
[2024-08-30] MEDS: acetaminophen 1,000mg/100ml IV 100 ML IV PRN (11:15)
--- NOTE | 2024-08-30 11:27 | OPERATIVE REPORT ---
Operative Report Providers to CC ~ Date of Procedure: Aug 30, 2024 Pre-Operative Diagnosis: Left thumb wound, flexor tenosynovitis, meth use Post-Operative Diagnosis Felon abscess left thumb tip Procedure Performed I&D left thumb felon wound packing Surgeon: He Raygoza MD Metal Cut Off Saw Tender None Anesthesiologist: Yves Cherry Type of Anesthesia: General Findings: Patient was found to have an abscess in the pad of his left thumb tip distal to the interphalangeal joint consistent with a felon no septic tenosynovitis was encountered Complications None Prosthetics\Implants used: Quarter-inch iodoform gauze for packing Estimated Blood Loss: Less than 50 cc Specimen Removed: Exudate purulent material Description of Procedure: Patient was taken to the operating room on an urgent basis due to progressive swelling of the left thumb distal to the interphalangeal joint. Informed consents were obtained. I signed his left thumb he was on prophylactic antibiotics and additional g of Ancef was given intraoperatively. The left arm and the hand were prepped and draped in usual sterile orthopedic fashion surgical time-out was taken per protocol no tourniquet was used for placed. Patient's swelling was progressive along the radial side of his thumb nail distal to the interphalangeal joint. An incision was made along the edge of his thumb and towards the ulceration of the tip and palm of his thumb in a curvilinear fashion dissection was then carried to the abscess with significant amounts of purulent material being removed cultures were taken. The area was then copiously irrigated and debrided with a rongeur. No significant fatty necrosis was appreciated. No involvement of the flexor tendon sheath. The wound was irrigated with antibiotic impregnated normal saline as well as Aricept antiseptic solution. Iodoform quarter-inch dressing soaked with antibiotic Ancef was now placed into the depths of the wound exited out proximally and radially. As 4x4s dressing was now placed securely around the thumb as well as gauze wrap clean and Rob bandage. The tip of the thumb remained with good capillary refill. Patient was extubated local anesthetic was injected for a digital block as there was no erythema in this area now. Patient was extubated and taken to the recovery room in stable condition there were no apparent perioperative complications Counts repoted as correct: Yes HE RAYGOZA MD Aug 30, 2024 11:27
--- NOTE | 2024-08-30 14:05 | PROGRESS NOTE ---
Daily Progress Note Providers to CC ~ Antibiotic Timeout Antibiotic Ordered?: Yes Subjective Patient was seen in presence of his grandmother today.he had I&D left thumb felon wound packing done by Dr. Olivera for Left thumb wound, flexor tenosynovitis. As per nursing staff patient is refusing for heparin shots which we are giving for DVT prophylaxis to him in off and on refusing for the blood pressure check. Objective Vital Signs Date Time Temp Pulse Resp B/P (MAP) Pulse Ox O2 Delivery O2 Flow Rate FiO2 08/30/24 13:28 16 08/30/24 12:30 70 113/70 (84) 95 Room Air 08/30/24 12:00 97.5 3.5 Result Diagram: 08/30/2414 08/30/24 0614 General-patient not in any acute distress, alert awake oriented, morbidly obese, chronically ill-appearing HEENT-atraumatic normocephalic, neck supple without elevated JVD, no thyromegaly or carotid bruit. No lymphadenopathy bilaterally. Eyes-no icterus or pallor seen in eyes Chest-clear to auscultation bilaterally, breathing nonlabored no tachypnea, no wheezing, no crepitation, no crackles. Heart-S1-S2 normal, regular heart rate no murmur Abdomen bowel sounds positive on auscultation, soft nondistended nontender no guarding, no rigidity Skin/ Extremity- no pedal edema able to move all 4 extremities. Surgical dressing present over left thumb and left hand Neurology-grossly intact, nonfocal alert awake oriented Psychiatry - patient is not confused or agitated cooperated during physical examination Coagulation Studies Laboratory Tests Test 08/30/24 06:14 Prothrombin Time 10.3 SECONDS (9.0-12.0) INR International Normalized Ratio 1.0 INR Activated Partial Thromboplast Time 30 SECONDS (22-32) Coagulation Comments Problem\Assessment\Plan Patient is 38-year-old male with known history of bipolar and schizoaffective disorder. He is admitted today for flexor tenosynovitis of left thumb. # flexor tenosynovitis of left thumb- Dr. Olivera aware evaluated the patient. continue on IV antibiotics IV fluids pain medication ordered for pain control. he had I&D left thumb felon wound packing done by Dr. Olivera for Left thumb wound, flexor tenosynovitis. # We will do patient's home medication reconciliation once updated in medical record system by nursing staff or pharmacist. We will continue to monitor patient's labs and vitals. # substance abuse- social welfare clerk and substance abuse navigator consultation ordered. Patient denied any drug history to me and he mentioned that he use weed which he used three weeks back but his urine drug screen positive for meth. # blood pressure borderline today. stopped antihypertensive medications today. # Code status discussed with the patient patient wishes to stay full code. Patient's current condition is guarded I will continue to follow patient in AM . Date of Service: Aug 30, 2024 Billing Provider: ZORAN STRICKLAND MD Common Visit Codes: [id number] INP/OBS CARE(HIGH) ZORAN STRICKLAND MD Aug 30, 2024 14:05
[2024-08-30] MEDS: VANCOmycin 1250MG/NS 250ml Bag 250 ML IV SCH (23:00)
[2024-08-31 02:00] VITALS: BP 121/74; PULSE 89; RESP 18; TEMP 97.2; O2SAT 98
[2024-08-31 05:51] LABS: MEAN PLATELET VOLUME 8.6 FL (7.4-10.4); RED CELL DISTRIBUTION WIDTH 14.0 % (11.5-14.5)
[2024-08-31 06:00] VITALS: BP 114/70; PULSE 83; RESP 18; TEMP 96.9; O2SAT 96
[2024-08-31 08:59] LABS: CREATININE 0.55 MG/DL (0.60-1.10); TOTAL CARBON DIOXIDE 24.1 MMOL/L (24-32); eCRCL 188 ML/MIN; eGFR > 90 ML/MIN
[2024-08-31 10:00] VITALS: BP 133/88; PULSE 92; RESP 18; TEMP 97.3; O2SAT 99
--- NOTE | 2024-08-31 15:57 | PROGRESS NOTE ---
Daily Progress Note Providers to CC ~ Antibiotic Timeout Antibiotic Ordered?: No Subjective Patient was seen in his room he does not feel that he is ready for discharge today. One of the blood culture showing Gram-positive cocci the other blood culture negative. I and D done by Dr. Olivera Objective Vital Signs Date Time Temp Pulse Resp B/P (MAP) Pulse Ox O2 Delivery O2 Flow Rate FiO2 08/31/24 10:00 97.3 92 18 133/88 (103) 99 Room Air 08/31/24 08:00 3.5 Result Diagram: 08/31/24 0508 08/31/24 0802 General-patient not in any acute distress, alert awake oriented, morbidly obese, chronically ill-appearing HEENT-atraumatic normocephalic, neck supple without elevated JVD, no thyromegaly or carotid bruit. No lymphadenopathy bilaterally. Eyes-no icterus or pallor seen in eyes Chest-clear to auscultation bilaterally, breathing nonlabored no tachypnea, no wheezing, no crepitation, no crackles. Heart-S1-S2 normal, regular heart rate no murmur Abdomen bowel sounds positive on auscultation, soft nondistended nontender no guarding, no rigidity Skin/ Extremity- no pedal edema able to move all 4 extremities. Surgical dressing present over left thumb and left hand Neurology-grossly intact, nonfocal alert awake oriented Psychiatry - patient is not confused or agitated cooperated during physical examination Coagulation Studies Laboratory Tests Test 08/30/24 06:14 Prothrombin Time 10.3 SECONDS (9.0-12.0) INR International Normalized Ratio 1.0 INR Activated Partial Thromboplast Time 30 SECONDS (22-32) Coagulation Comments Problem\Assessment\Plan Patient is 38-year-old male with known history of bipolar and schizoaffective disorder. He is admitted today for flexor tenosynovitis of left thumb. # flexor tenosynovitis of left thumb- Dr. Olivera aware evaluated the patient. continue on IV antibiotics IV fluids pain medication ordered for pain control. he had I&D left thumb felon wound packing done by Dr. Olivera for Left thumb wound, flexor tenosynovitis. # We will do patient's home medication reconciliation once updated in medical record system by nursing staff or pharmacist. We will continue to monitor patient's labs and vitals. # substance abuse- social secretary and substance abuse navigator consultation ordered. Patient denied any drug history to me and he mentioned that he use weed which he used three weeks back but his urine drug screen positive for meth. # blood pressure borderline today. stopped antihypertensive medications today. # Code status discussed with the patient patient wishes to stay full code. Patient's current condition is guarded I will continue to follow patient in AM . Date of Service: Aug 31, 2024 Billing Provider: ZORAN STRICKLAND MD Common Visit Codes: [id number] INP/OBS CARE(HIGH) ZORAN STRICKLAND MD Aug 31, 2024 15:57
[2024-08-31 18:00] VITALS: BP 121/74; PULSE 82; RESP 14; TEMP 98.5; O2SAT 98
[2024-08-31 20:00] VITALS: RESP 14; O2SAT 98
[2024-08-31] MEDS: VANCOMYCIN LEVEL IV ONE (21:36)
[2024-08-31 22:00] VITALS: BP 109/46; PULSE 81; RESP 18; TEMP 97.2; O2SAT 95
[2024-09-01 06:00] VITALS: BP 116/83; PULSE 91; RESP 16; TEMP 97.3; O2SAT 97
[2024-09-01] MEDS: ondansetron/PF 4mg/2ml inj IV PRN (07:33)
[2024-09-01 10:00] VITALS: BP 134/86; PULSE 101; RESP 16; TEMP 97.8; O2SAT 97
[2024-09-01] MEDS: VANCOMYCIN/WATER FOR INJ (PEG) 1.5GM/300 ML IVPB IV SCH (13:33)
[2024-09-01 18:00] VITALS: BP 131/76; PULSE 95; RESP 21; TEMP 97.4; O2SAT 100
[2024-09-01 20:00] VITALS: RESP 21; O2SAT 100
--- NOTE | 2024-09-01 20:16 | RADIOLOGY REPORT ---
EXAM: MR MRI UPPER EXTREMITY LEFT INDICATION: felon, left thumb TECHNIQUE: Multiplanar, multisequence imaging of the left thumb without contrast COMPARISON: None FINDINGS: BONES: Osteomyelitis decreased T1 signal of the distal phalanx of the dorsal aspect. Deep penetrating suspected soft tissue ulceration primarily centered of the radial aspect distal thumb with underlyin g subcutaneous tissue edema. MUSCLES: Normal signal intensity and morphology. TENDONS: Intact. LIGAMENTS: Intact. JOINT SPACES: No joint effusion. NEUROVASCULAR: Normal. OTHER: None. IMPRESSION: 1. Osteomyelitis decreased T1 signal of the distal phalanx of the dorsal aspect. Deep penetrating jono pected soft tissue ulceration primarily centered of the radial aspect distal thumb with underlying coker bcutaneous tissue edema.
--- NOTE | 2024-09-01 21:54 | PROGRESS NOTE ---
Daily Progress Note Providers to CC ~ Antibiotic Timeout Antibiotic Ordered?: Yes Subjective No acute events overnight. Patient examined at bedside. No new complaints. Patient denies chest pain, sob, palpitations, abdominal pain, n/v/d. Vss, labs unremarkable. MRI reveals osteomyelitis decreased T1 signal of the distal phalanx of the dorsal aspect. Deep penetrating suspected soft tissue ulceration primarily centered of the radial aspect distal thumb with underlying subcutaneous tissue edema. Objective Vital Signs Date Time Temp Pulse Resp B/P (MAP) Pulse Ox O2 Delivery O2 Flow Rate FiO2 09/01/24 20:00 21 100 Room Air 09/01/24 18:00 97.4 95 131/76 (94) 08/31/24 08:00 3.5 Result Diagram: 08/31/24 0508 08/31/24 0802 Physical Exam General: A&Ox 3, NAD HEENT: Normocephalic, PERRLA Neck: Supple, trachea midline, no JVD Chest: Clear to auscultation bilaterally Cardiovascular: RRR, S1&S2 GI: Soft and nontender Extremities: No cyanosis/clubbing/or edema TAKE AWAY ATTENDANT: CN II-XII intact, no focal deficits Musculoskeletal: No paraspinal muscle tenderness, no muscle spasm Skin: Right thumb incision Coagulation Studies Laboratory Tests Test 08/30/24 06:14 Prothrombin Time 10.3 SECONDS (9.0-12.0) INR International Normalized Ratio 1.0 INR Activated Partial Thromboplast Time 30 SECONDS (22-32) Coagulation Comments Problem\Assessment\Plan Assessment & Plan Osteomyelitis Flexor tenosynovitis of left thumb -s/p I&D left thumb felon wound packing done by Dr. Olievra for flexor tenosynovitis -09/01: MRI reveals osteomyelitis decreased T1 signal of the distal phalanx of the dorsal aspect. Deep penetrating suspected soft tissue ulceration primarily centered of the radial aspect distal thumb with underlying subcutaneous tissue edema. -wound culture Staph aureus, continue vancomycin Bipolar disorder Schizoaffective disorder Substance abuse -social organization professor and substance abuse navigator consult Code status: Full Code DVT/VTE Prophylaxis: heparin Date of Service: Sep 01, 2024 Billing Provider: LIDIA MCKEON Common Visit Codes: [id number] INP/OBS CARE(HIGH) LIDIA MCKEON Sep 01, 2024 21:54
[2024-09-01 22:00] VITALS: BP 113/62; PULSE 71; RESP 19; TEMP 96.6; O2SAT 96
[2024-09-02] MEDS: normal saline 500ml IV soln 500 ML IV ONE (01:24)
[2024-09-02 06:00] VITALS: BP 138/86; PULSE 80; RESP 16; TEMP 97; O2SAT 98
[2024-09-02] MEDS ORDERED: LEVO750T68 PO (09:52)
--- NOTE | 2024-09-02 10:20 | DISCHARGE SUMMARY ---
Discharge Summary Providers to CC ~ Discharge Summary Admission Diagnosis: osteomyelitis, tensynovitis, felon, abscess- left thumb Hospital Course DATE OF ADMISSION: 08/29/24 DATE OF DISCHARGE: 09/02/24 Discharge Diagnosis\\Comment: Osteomyelitis- POA Flexor tenosynovitis of left thumb Abscess, left thumb Bipolar disorder Schizoaffective disorder Polysubstance abuse Methamphetamine abuse Operations\\Procedures: I&D left thumb felon wound packing Consultants: Orthopedic surgeon Dr. Olivera, He Infectious Disease Clemente Jacobson Complications: None Condition on DC: Stable New Medications: Levofloxacin (Levofloxacin) 750 Mg Tablet 750 MG PO DAILY for 42 Days, #42 TAB Continued Medications: Aripiprazole (Abilify Asimtufii) 960 Mg/3.2 Ml Suser.syr 960 MG IM Q60 DAYS Discharge Summary: History of Present Illness From H&P: "38-year-old male with past medical history of methamphetamine use who presented with left thumb wound x 7 days. Noticed a pimple like lesion on it which he opened with a razor blade and got pus out, it has rapidly spread down his thumb today and now causes him severe pain with any flexion. Per patient pain was mainly over the hand but now it is spreading to the left wrist in forearm also. He denied any IV drug use . Patient is having difficulty doing in making fist unable to flex his thumb. Patient currently does not have any primary care physician he follows in [facility] for his bipolar and schizoaffective disorder. He takes Abilify injections every two months. Patient denies any other symptoms no other medical issues. He is trying to get the disability due to his psychiatric issues and currently does not work, he is able to ambulate" Hospital Course Patient was started on empirical antibiotics. Case was consulted with orthopedic surgeon Dr. Olivera and patient underwent I&D of left thumb felon and wound packing. Op findings were notable for abscess in the pad of his left thumb tip distal to the interphalangeal joint consistent with a felon. A wound culture resulted for Staphylococcus aureus and UDS was positive for amphetamines. A subsequent MRI revealed osteomyelitis in which ID Dr. Raymond was consulted for. Patient did not experience further complications throughout the entire hospital stay. Patient was seen and examined on the day of discharge. On day of discharge, vss and labs unremarkable. Blood cultures remain negative until the day of discharge. All labs, diagnostic workups, discharge plan discussed with patient in details during visit before discharge. All questions and concerns answered to the best of my professional knowledge. Patient is to be discharged to home to self and to follow-up with PCP and ID Dr. Raymond within 2 weeks. Patient is discharged with 6-week course of oral levofloxacin per ID recommendation. Physical Exam General: A&Ox 3, NAD HEENT: Normocephalic, PERRLA Neck: Supple, trachea midline, no JVD Chest: Clear to auscultation bilaterally Cardiovascular: RRR, S1&S2 GI: Soft and nontender Extremities: No cyanosis/clubbing/or edema TUNNELLER: CN II-XII intact, no focal deficits Musculoskeletal: No paraspinal muscle tenderness, no muscle spasm Skin: Right thumb incision *Problems/Diagnosis: (1) Osteomyelitis Status: Acute Total Time Spent on D/C: > 30 Minutes Date of Service: Sep 02, 2024 Billing Provider: LIDIA MCKEON Common Visit Codes: [id number] DISCH DAY >30min LIDIA MCKEON Sep 02, 2024 10:20
[2024-09-02] MEDS: levoFLOXACIN 750MG TABLET PO SCH (11:40)
[2024-09-02] MEDS ORDERED: VANCOMYCIN LEVEL IV ONE (12:30)
--- NOTE | 2024-09-03 05:18 | CONSULTATION ---
DATE OF CONSULTATION: 09/02/2024 DICTATING PHYSICIAN: Clemente Raymond MD REASON FOR CONSULTATION: I am seeing the patient at the request of Sagar Patel for evaluation of osteomyelitis involving the left thumb. HISTORY OF PRESENT ILLNESS: The patient is a 38-year-old male with psychiatric disease and methamphetamine abuse, who presented to this facility 4 days ago with worsening infection of his left thumb. He apparently developed a small soft tissue infection and tried to drain it with a razor blade. He denies a history of IV drug abuse and states that he only takes methamphetamine orally. He does have bipolar disorder and schizoaffective disorder and he takes an Abilify injection every 2 months. He states that he normally stays at home and takes care of his grandma. He did go to the operating room with Dr. Olivera on his second hospital day. He was found to have a felon with abscess involving the pad of the left thumb. He states that he does not have significant pain at this time. He is hoping to go home soon. PAST MEDICAL HISTORY: * Bipolar disorder and schizoaffective disorder. * Polysubstance abuse. ALLERGIES: None. MEDICATIONS: * Vancomycin. * Subcutaneous heparin. * Nicotine patch. FAMILY HISTORY: Noncontributory. SOCIAL HISTORY: He lives down in [place] with his grandma. He does smoke marijuana and tobacco. He takes methamphetamine orally. He states that he is very afraid of needles and he states that he cannot handle any more blood draws. PHYSICAL EXAMINATION: VITAL SIGNS: He is afebrile with stable vital signs. GENERAL: He is a middle-aged male, currently lying in bed in no acute distress. HEENT: Sclerae anicteric. Mouth is clear. NECK: Supple. LUNGS: Clear to auscultation bilaterally. HEART: Regular rate and rhythm. ABDOMEN: Obese, soft, and nontender. EXTREMITIES: His left thumb is currently wrapped. LABORATORY DATA: His white blood cell count is normal at 6200, ESR 18, creatinine 0.55, CRP 5.86. Culture did grow MSSA that is resistant to Bactrim. MRI did show evidence of osteomyelitis involving the distal phalanx at the dorsal aspect. IMPRESSION: * Felon involving the left thumb due to MSSA. The area has been surgically drained and he does have evidence of osteomyelitis involving the distal phalanx. * Significant psychiatric disease and polysubstance abuse. He is on Abilify injections every 2 months. PLAN: I do not think that IV therapy is a good option for him. He is already having trouble with blood draws for labs. Thus, I think we need to find an oral route to deal with this infection. 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 I also do not think he is going to do well with an antibiotic that requires frequent oral dosing. Thus, I do think we should move forward with levofloxacin 750 mg daily for 6 weeks. I would normally team this up with rifampin, but rifampin will interact with his Abilify. Given that interaction, we will see how he does with levofloxacin monotherapy. He is welcome to follow up with me if needed. He should be able to go home today and I thank you for allowing me to participate in his care. Clemente Raymond MD TID: [id number] RECEIPT: [id number] JASON/MONSE
== END 2024-09-02 12:45 | disposition home or self-care (01) | DRG 351 ==
LOC: ER 07:12 → ED HOLD 08:51 → ORTHO 4S 10:10
PROVIDERS: ADMIT Internal Medicine; ATTEND Internal Medicine
PROC: 3E00X29 Introduction of Other Anti-infective into Skin and Mucous Membranes, External Approach (ICD-10-PCS; 2024-08-30)
PROC: 0HBGXZZ Excision of Left Hand Skin, External Approach (ICD-10-PCS; principal; 2024-08-30 10:06)
DX: M65.942 Unspecified synovitis and tenosynovitis, left hand (principal); F25.9 Schizoaffective disorder, unspecified; L03.012 Cellulitis of left finger; F15.10 Other stimulant abuse, uncomplicated; M86.8X4 Other osteomyelitis, hand; F31.9 Bipolar disorder, unspecified; L02.512 Cutaneous abscess of left hand; I10 Essential (primary) hypertension; Z87.442 Personal history of urinary calculi
CPT/HCPCS: 36415; 73140; 73218; 80048; 80053; 80202; 80305; 82948; 83605; 84145; 85025; 85610; 85651; 85730; 86140; 87040; 87070; 87075; 87077; 87081; 87186; 96365; 99285; A4618; A6258; A6266; A6446; A6449; A7000; G0378; J0131; J0690; J0696; J1644; J2250; J2270; J2405; J2704; J3010; J3373; J3374; J3375; J3490; J7030; J7040

== ENCOUNTER 2024-10-02 00:05 | Emergency (ER) | payer MEDICAID ==
[~2024-10-02] VITALS: Ht 177.8 cm; Wt 117.3 kg
[~2024-10-02 00:05] MED LIST changes: +ARIP960S IM; -HALO2TAB PO; +LEVO750T68 PO; -NO HOME MEDS; -ONDA-243 PO
[2024-10-02 00:41] VITALS: BP 131/83; PULSE 94; RESP 18; TEMP 98.2; O2SAT 98
== END 2024-10-02 01:49 | disposition left against medical advice (07) ==
LOC: ER 00:06
DX: Z00.8 Encounter for other general examination (principal); Z53.21 Procedure and treatment not carried out due to patient leaving prior to being seen by health care provider

== ENCOUNTER 2024-10-03 14:28 | Emergency (ER) | payer MEDICAID ==
[~2024-10-03] VITALS: Ht 177.8 cm; Wt 120.9 kg
[2024-10-03 15:03] LABS: MEAN PLATELET VOLUME 7.9 FL (7.4-10.4); RED CELL DISTRIBUTION WIDTH 14.1 % (11.5-14.5)
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
[2024-10-03 15:20] LABS: CREATININE 0.50 MG/DL (0.60-1.10); TOTAL CARBON DIOXIDE 24.4 MMOL/L (24-32); eCRCL 207 ML/MIN; eGFR > 90 ML/MIN
[2024-10-03 15:21] LABS: ETHANOL < 10 MG/DL (<10)
[2024-10-03] MEDS: potassium Cl 20 mEq SR tablet PO STA (16:22)
[2024-10-03 16:34] LABS: LEUKOCYTE ESTERASE ,URINE NEGATIVE (Neg); NITRITES, URINE NEGATIVE (Neg); OCCULT BLOOD,URINE NEGATIVE (Neg)
[2024-10-03 16:39] LABS: UA COLLECTION TYPE CLN CATCH MIDSTREAM
[2024-10-03 16:52] LABS: URINE AMPHETAMINE SCREEN POSITIVE (Neg); URINE BARBITUATE SCREEN NEGATIVE (Neg); URINE BENZODIAZEPINES SCREEN NEGATIVE (Neg); URINE CANNABINOID SCREEN POSITIVE (Neg); URINE COCAINE SCREEN NEGATIVE (Neg); URINE METHADONE SCREEN NEGATIVE (Neg); URINE OPIATE SCREEN NEGATIVE (Neg); URINE PHENCYCLIDINE SCREEN NEGATIVE (Neg)
[2024-10-03 19:30] VITALS: BP 138/85; PULSE 85; RESP 17; TEMP 98.1; O2SAT 98
== END 2024-10-03 19:33 | disposition home or self-care (01) ==
LOC: ER 14:29
DX: U07.1 COVID-19 (principal); Z76.5 Malingerer [conscious simulation]; F41.9 Anxiety disorder, unspecified; F31.9 Bipolar disorder, unspecified; F25.9 Schizoaffective disorder, unspecified; F12.90 Cannabis use, unspecified, uncomplicated; I10 Essential (primary) hypertension; F15.90 Other stimulant use, unspecified, uncomplicated; F17.200 Nicotine dependence, unspecified, uncomplicated; Z59.00 Homelessness unspecified; Z79.899 Other long term (current) drug therapy; Z87.442 Personal history of urinary calculi; Z56.0 Unemployment, unspecified; Z60.2 Problems related to living alone
CPT/HCPCS: 36415; 80048; 80305; 80320; 81003; 84443; 85025; 87811; 99284

== ENCOUNTER 2024-10-12 19:41 | Emergency (ER) | payer MEDICAID ==
[~2024-10-12] VITALS: Ht 177.8 cm; Wt 114.6 kg
[~2024-10-12 19:41] MED LIST changes: -LEVO750T68 PO
[2024-10-12 19:53] LABS: MEAN PLATELET VOLUME 7.6 FL (7.4-10.4); RED CELL DISTRIBUTION WIDTH 14.4 % (11.5-14.5)
[2024-10-12 20:15] LABS: CREATININE 1.11 MG/DL (0.60-1.10); PRO BRAIN NATRIURETIC PEPTIDE < 30 PG/ML (0-125); TOTAL CARBON DIOXIDE 17.2 MMOL/L (24-32); eCRCL 93 ML/MIN; eGFR 74 ML/MIN
--- NOTE | 2024-10-12 20:32 | RADIOLOGY REPORT ---
CHEST RADIOGRAPH Indication: CP Technique: Single frontal view of the chest was obtained Comparison: None FINDINGS: Lines and Tubes: None Lungs: No focal consolidation. Pleura: No effusion. No pneumothorax. Cardiomediastinal contours: Unremarkable Bones: No acute osseous abnormality. IMPRESSION: No acute cardiopulmonary disease.
[2024-10-12] MEDS: potassium Cl 20 mEq SR tablet PO ONE (20:57)
[2024-10-12] MEDS: potassium CL 10mEq/100ml bag 100 ML IV ONE (21:03)
[2024-10-12] MEDS: magnesium sulf-water 2g/50mL 50 ML IV ONE (21:03)
[2024-10-12 21:06] LABS: ETHANOL < 10 MG/DL (<10)
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
[2024-10-13 00:04] VITALS: BP 107/66; PULSE 95; RESP 18; TEMP 98.2; O2SAT 100
--- NOTE | 2024-10-13 05:27 | ELECTROCARDIOGRAPH REPORT ---
[facility] Test Date: 2024-10-12 Test Time: 19:47:10 Pat Name: CELESTINO MCBRIDE Department: EMERGENCY ROOM Room: Gender: M Real Estate Coordinator: DRAKE : 1985 Requested By: ROSA STOCKTON Order Number: [id number] Reading MD: Dr. Rosa Stockton Measurements Intervals [place] Rate: 130 P: 12 CT: 126 QRS: 53 QRSD: 96 T: 13 QT: 305 QTc: 449 Interpretive Statements Sinus tachycardia Abnormal inferior Q waves Borderline T wave abnormalities Electronically Signed On 10-13-2024 5:47:[address] Rosa Stockton Please click the below link to view image of tracing.
== END 2024-10-13 00:06 | disposition home or self-care (01) ==
LOC: ER 19:42
DX: E87.6 Hypokalemia (principal); R07.9 Chest pain, unspecified; F31.9 Bipolar disorder, unspecified; R06.02 Shortness of breath; I10 Essential (primary) hypertension; F20.9 Schizophrenia, unspecified; F12.90 Cannabis use, unspecified, uncomplicated; F17.200 Nicotine dependence, unspecified, uncomplicated; F15.90 Other stimulant use, unspecified, uncomplicated; Z59.00 Homelessness unspecified
CPT/HCPCS: 36415; 71045; 80048; 80076; 80320; 83690; 83735; 83880; 84484; 85025; 93005; 96365; 96368; 99285; J3480; J7040

== ENCOUNTER 2024-10-14 02:52 | Emergency (ER) | payer MEDICAID | END 2024-10-14 03:46 | disposition left against medical advice (07) | LOC: ER 02:53 | DX: R44.0 Auditory hallucinations (principal); Z53.21 Procedure and treatment not carried out due to patient leaving prior to being seen by health care provider ==

== ENCOUNTER 2024-10-15 19:07 | Emergency (ER) | payer MEDICAID ==
[~2024-10-15] VITALS: Ht 177.8 cm; Wt 84.0 kg
[2024-10-15 19:29] VITALS: BP 148/96; PULSE 102; RESP 15; O2SAT 99
--- NOTE | 2024-10-15 20:57 | Physician Documentation ---
HPI ~ General Chief Complaint: Medication Request Stated Complaint: MED REQUEST Primary Medical Doctor: EMMANUEL RESTREPO History of Present Illness HPI Comments This is a 38-year-old male with significant psych history who presents requesting a dose of Ativan and Haldol due to feelings of brooks, patient reports that he is compliant with all his mental health medications though feels more agitated lately, patient reports no suicidal ideation, or homicidal ideation. Patient reports that if he is unable to receive the injection today that he can follow up with the primary care provider/primary mental health provider tomorrow. Medication Reconciliation Allergies: Coded Allergies: No Known Allergies (Unverified , 10/16/24) Scheduled Aripiprazole (Abilify Asimtufii), 960 MG IM Q60 DAYS, (Reported) Olanzapine (Olanzapine), 1 TAB PO HS Past Medical History Past Medical History: Hypertension, Kidney Stones, Bipolar, Depression, Schizophrenia Past Surgical History: orthopedic surgeries Patient History: Patient reports no known family medical history. Alcohol Use: None Drug Use: marijuana, methamphetamine Lives with: Alone Lives In: Homeless Occupation: unemployed Review of Systems ROS As stated above in the HPI, otherwise all systems are reviewed and negative. Physical Exam Physical Exam Vital Signs: Heart Rate: 102, Respiratory Rate: 15, BP: 148/96, Pulse Oximetry: 99, Weight: 83.950 Physical Exam VITALS: Reviewed and as above. GENERAL: Alert, nontoxic appearing, no apparent distress. RESPIRATORY: No increased work of breathing, no respiratory distress, speaking in full clear sentences PSYCH: No statements of HI or SI Progress Results/Orders Results/Orders Vital Signs 10/15/24 19:29 Pulse 102 Resp 15 B/P (MAP) 148/96 Pulse Ox 99 Medical Decision Making Findings MSE performed in triage and patient returned to ED lobby by nursing staff to await available ED room. Patient appears to have eloped from lobby Differential Dx:Considerations: Include: Psychosocial, Medical services unavail., Medication refill, Medication non-compliance, Other (suicidal, homicidal, brooks, bipolar, psychosis) Departure Disposition: LEFT AWOL/ELOPED Impression: Primary Impression: Mental disorder Referrals: NO PRIMARY CARE PROVIDER (PCP) Signature Scribe Signature: No Scribe Attestation: The note accurately reflects work and decisions made by me.CYNDY Teixeira 10/18/24 21:09 KAILYN MAY Oct 15, 2024 20:57
[2024-10-16] MEDS ORDERED: OLAN-38 PO (21:24)
== END 2024-10-15 22:24 | disposition left against medical advice (07) ==
LOC: ER 19:08
DX: F99 Mental disorder, not otherwise specified (principal); F20.9 Schizophrenia, unspecified; F31.9 Bipolar disorder, unspecified; F12.90 Cannabis use, unspecified, uncomplicated; I10 Essential (primary) hypertension; Z87.442 Personal history of urinary calculi; Z59.00 Homelessness unspecified; Z56.0 Unemployment, unspecified; Z79.899 Other long term (current) drug therapy; Z60.2 Problems related to living alone; Z98.890 Other specified postprocedural states
CPT/HCPCS: 99281

== ENCOUNTER 2024-10-16 20:26 | Emergency (ER) | payer MEDICAID ==
[~2024-10-16] VITALS: Ht 177.8 cm; Wt 115.3 kg
[2024-10-16 20:35] VITALS: BP 138/95; PULSE 121; RESP 18; TEMP 97.3; O2SAT 98
--- NOTE | 2024-10-16 21:23 | Physician Documentation ---
History of Present Illness ~ Chief Complaint: Suicidal Ideation Stated Complaint: SI Time Seen by MD: 21:00 Primary Medical Doctor: EMMANUEL RESTREPO [facility] This is a 38-year-old male with a history of bipolar 1 and schizoaffective disorder who presents to the emergency department due to concern of increased auditory hallucinations and intrusive thoughts of taking his own life, though patient reports no intention on acting on these thoughts. Patient reports I am fighting them really hard. Of note I saw patient last night in triage after he presented requesting an injection of Haldol and Ativan due to feelings of increased brooks, patient had eloped from lobby prior to being medicated last night. Patient reports he lives with another responsible adult that could call 911 if he began having increased brooks symptoms and was able to provide a safety plan to include returning to the emergency department should suicidal intentions develop, patient reports he does not have access to firearms or other weapons. Patient reports that he normally has a daily check-in with a mental health provider though missed his appointment today, patient reports that he received an injection of a mental health medication every two months and has an appointment with a mental health provider for adjustment of this medication and injection in approximately one month. Medication Reconciliation Allergies: Coded Allergies: No Known Allergies (Unverified , 10/16/24) Scheduled Aripiprazole (Abilify Asimtufii), 960 MG IM Q60 DAYS, (Reported) Olanzapine (Olanzapine), 1 TAB PO HS Past Medical History Past Medical History: Hypertension, Kidney Stones, Bipolar, Depression, Schizophrenia Past Surgical History: orthopedic surgeries Patient History: Patient reports no known family medical history. Alcohol Use: None Drug Use: marijuana, methamphetamine Lives with: Alone Lives In: Homeless Occupation: unemployed Review of Systems ROS As stated above in the HPI, otherwise all systems are reviewed and negative. Physical Exam Vital Signs: Temperature: 97.3, Source: Temporal, Heart Rate: 121, Respiratory Rate: 18, BP: 138/95, Pulse Oximetry: 98, Weight: 115.300 Physical Exam VITALS: Reviewed and as above. GENERAL: Alert, nontoxic appearing, no apparent distress. RESPIRATORY: No increased work of breathing, no respiratory distress, speaking in full clear sentence NEURO: GCS 15, alert and oriented x4 PSYCH: Flat affect, stating no suicidal or homicidal ideation Progress Results/Orders Results/Orders Completed Orders - LALO,KAILYN W PIPE WASHER Olanzapine Disint. Tablet (Zyprexa Zydis (10/16/24 21:15) Vital Signs 10/16/24 20:35 Temp 97.3 Pulse 121 Resp 18 B/P (MAP) 138/95 Pulse Ox 98 Medical Decision Making Findings This 38-year-old male with a history of bipolar one in his schizoaffective disorder presented to the emergency department due to concern of the increased auditory hallucinations and intrusive thoughts, careful discussion with the patient there was no evidence that patient had any suicidal ideation or homicidal ideation and no thoughts of acting on intrusive thoughts that included self-harm. Patient has been seen previously requesting an injection of Haldol and turn tonight discussing medication options that have worked in the past for him for his increased symptoms, this was evidence of patient has good insight into his condition, additionally patient was able to make a safety plan with me to include returning to the emergency department should symptoms worsen or he began to have suicidal ideation or homicidal ideation. Patient does not have access to firearms or weapons and has good follow up with mental health provider. Plan is to add Zyprexa to patient's medication regime which includes a long-acting injectable antipsychotic, I discussed this option with the patient who agrees and with shared decision-making patient will be discharged follow up 1st thing tomorrow morning with his mental health team at [facility]. Patient is otherwise well-appearing and appropriate for outpatient follow up. Differential Dx:Considerations: Include: Anxiety, Bipolar disorder, Homicidal, Panic disorder, Personality disorder, Schizophrenia, Suicidal Departure Time of Disposition: 21:21 Disposition: 01 HOME / SELF CARE / HOMELESS Impression: Primary Impression: Schizoaffective disorder Qualified Codes: F25.0 - Schizoaffective disorder, bipolar type Condition: Improved Discharge Instructions: Suicidal Feelings: How to Help Yourself Additional Instructions: As we discussed please return to the emergency department if you are symptoms are worsening or if you are having thoughts of harming herself or others. Please take the Zyprexa Zydis daily until you see your primary mental health prescriber, please follow up with [facility] tomorrow as scheduled. If the medication prescribed as effective and you can not see your mental health prescriber for the medication runs out please return to the emergency room for refill. Please follow up with your primary care provider in the next few days. Please return to the emergency department for any new or worsening concerning symptoms. Referrals: NO PRIMARY CARE PROVIDER (PCP) Prescriptions Olanzapine (Olanzapine) 10 Mg Tablet 1 TAB PO HS for 7 Days, #7 TAB 0 Refills Prov: KAILYN MAY 10/16/24 Education Educated: Patient Educated regarding: diagnosis, treatment, prognosis, need for follow up Signature Scribe Signature: No scribe Attestation: The note accurately reflects work and decisions made by me.CYNDY Teixeira 10/17/24 00:30 KAILYN MAY Oct 16, 2024 21:23
[2024-10-16] MEDS ORDERED: OLAN-38 PO (21:24)
[2024-10-16] MEDS: OLANZapine 5mg rapidly disint. tablet PO ONE (21:41)
== END 2024-10-16 21:50 | disposition home or self-care (01) ==
LOC: ER 20:26
DX: F25.9 Schizoaffective disorder, unspecified (principal); F12.90 Cannabis use, unspecified, uncomplicated; F15.90 Other stimulant use, unspecified, uncomplicated; F31.9 Bipolar disorder, unspecified; I10 Essential (primary) hypertension; Z56.0 Unemployment, unspecified; Z59.00 Homelessness unspecified; Z87.442 Personal history of urinary calculi; Z79.899 Other long term (current) drug therapy; Z60.2 Problems related to living alone
CPT/HCPCS: 99283

== ENCOUNTER 2024-10-24 00:40 | Emergency (ER) | payer MEDICAID ==
[~2024-10-24] VITALS: Ht 185.4 cm; Wt 116.5 kg
[~2024-10-24 00:40] MED LIST changes: +OLAN-38 PO
[2024-10-24 00:47] VITALS: BP 138/96; PULSE 100; RESP 15; O2SAT 99
[2024-10-24] MEDS: OLANZapine 5mg rapidly disint. tablet PO ONE (02:07)
[2024-10-24] MEDS ORDERED: ketorolac trometh 30MG/ML vial 30 MG/ML VIAL IM ONE (02:30)
--- NOTE | 2024-10-24 02:33 | Physician Documentation ---
History of Present Illness ~ Chief Complaint: Mental Health Eval Stated Complaint: MH EVKERI Time Seen by MD: 02:28 Primary Medical Doctor: EMMANUEL ALFARO This is a 38-year-old gentleman with a known history of mental health disorder, on Abilify monthly shot and 30 mg a day Abilify maintenance, presents because he wants a mental health evaluation. Despite on his medications, he continues to experience visual hallucinations. No particular trigger, no palliating or aggravating factors. He is compliant with his medications. Incidentally also complains of right knee pain at the anterior tibial tuberosity. No obvious trigger, trauma, provocation. Worse with ambulation and range of motion. Did not attempt to treat it. This only present present for a day. He is very specific that he is not suicidal, not homicidal. Denies any other somatic complaints. Medication Reconciliation Allergies: Coded Allergies: No Known Allergies (Unverified , 10/24/24) Scheduled Aripiprazole (Abilify Asimtufii), 960 MG IM Q60 DAYS, (Reported) Olanzapine (Olanzapine), 1 TAB PO HS Past Medical History Past Medical History: Hypertension, Kidney Stones, Bipolar, Depression, Schizophrenia Past Surgical History: orthopedic surgeries Patient History: Patient reports no known family medical history. Alcohol Use: None Drug Use: marijuana, methamphetamine Lives with: Alone Lives In: Homeless Occupation: unemployed Review of Systems ROS 10 point review of systems was performed and unless noted above in HPI is negative for acute process/complaint. Physical Exam Vital Signs: Temperature: 97.8, Source: Temporal, Heart Rate: 100, Respiratory Rate: 15, BP: 138/96, Pulse Oximetry: 99, Weight: 116.500 Physical Exam Physical examination: GENERAL: Awake, alert, oriented, GCS 15, no apparent distress, non-toxic appearing, answers questions, follows commands appropriately. HEENT: Atraumatic, normocephalic, pupils equal, extraocular muscles intact Active gross movements, sclerae anicteric, mucus membranes moist, no stridor. NECK: Midline, no JVD CARDIOVASCULAR: Good skin perfusion without evidence of pallor, mottling. PULMONARY: Nonlabored, symmetric chest rise, no audible wheezing, no accessory muscle use, no respiratory distress, speaking in full sentences. GASTROINTESTINAL: Not distended. NEUROLOGIC: Lucid with normal mental status. Normal facial symmetry. Moves all extremities symmetrically and with purpose. No truncal ataxia. Speech is fluid without evidence of dysarthria or aphasia, no focal deficits appreciated. EXTREMITIES: Acute deformities Skin: warm, dry PSYCHIATRIC: Normal affect, normal insight, normal concentration. Focused exam: Ambulates with a steady gait Progress Results/Orders Results/Orders Completed Orders - BAHISHEK WAKEFIELD DO Olanzapine Disint. Tablet (Zyprexa Zydis (10/24/24 02:00) Ketorolac Trometh 30mg/Ml Vial (Toradol (10/24/24 02:30) Medications Received in ER Medications (Trade) Dose Ordered Sig/Forrest Route PRN Reason Start Time Stop Time Status Last Admin Dose Admin (ZyPREXA zydis tablet) 10 mg ONCE ONCE PO 10/24/24 02:00 10/24/24 02:01 DC 10/24/24 02:07 10 MG Vital Signs 10/24/24 00:47 Temp 97.8 Pulse 100 Resp 15 B/P (MAP) 138/96 Pulse Ox 99 Medical Decision Making Findings Facility Status: ED Holds, E process The plan was discussed with the patient, who demonstrates clear understanding of the plan and is in agreement with the plan unless otherwise noted in the chart. All questions have been answered, all concerns were addressed unless otherwise documented. I was available throughout their ED stay for frequent reassessment and questions. Differential Diagnoses (considered and possible or likely): [Visual hallucinations, inadequate medication for psychiatric disease, denies suicidal or homicidal ideation, [place], less likely fracture or dislocation with a respect to his knee pain] ??Differential Diagnoses (considered and unlikely, not requiring evaluation currently): [See above] [facility] Data Please see [facility] for the following: Independent Historians and external Records Review. Historian: [Patient] Independent Historians: ?[Record review] Medication Management: [Reviewed medication list] Social History and determinants: [Reviewed] Please see the body of the note for the following: Any independent inter pretations of ECG, imaging studies. All vitals signs/haemodynamics, ordered tests were independently reviewed and interpreted by myself. Nursing triage complaint and vitals reviewed, additional nursing notes were reviewed as available and I agree unless otherwise noted or documented in contradiction in the chart Vital Signs: Independently reviewed Labs: Independently interpreted Imaging: Independently interpreted Old Medical Records: Independently reviewed, see [facility] for relevant summary and information Pulse Oximetry: [100%] interpreted as [normal on room air] by me Additionally notably showing: [Hemodynamically stable] Tests considered but not ordered include: [Hematologic workup has been considered but does not appear to be necessary given mechanical nature of the injury.] Social Determinants of Health Impact: Patient was evaluated in [facility], or [facility] [place] to healthcare due to below par ratio of patient to medical providers. [] Comorbid Conditions Impacting Present Evaluation and Care/Treatment: [No mental health disease] Management Discussions with other Healthcare Providers: [None] Treatment and Disposition Medication Management (Given or considered): [Zyprexa]. See EMR for details Consideration for Hospitalization/Escalation/Deescalation of Care: Admission for observation has been considered, [however the patient is able to tolerate p.o., their symptoms are controlled, they are able to rely on oral medications, and their chief complaint/diagnosis can be managed on outpatient basis.] ?ED Course:?[[place] better after Zyprexa for a while] Date: Oct 24, 2024 Time: 03:31 despite requesting x-ray of his knee, the gentleman abscond it after receiving Zyprexa. Clearly has a medical decision- making capacity, does not require recall Code status:?FULL Please see the full Electronic Medical Record for full details of nursing documentation, medications list, other records of complete past medical history and conditions, vital signs, laboratory studies, and any radiologic study interpretations by radiologists. Portions of this note were completed using [employer] dictation software and as a result there may exist minor errors in spelling. I have reviewed elements of past family and social history and agree as included in note. Departure Disposition: 07 LEFT AWOL/ELOPED Impression: Primary Impression: Mental disorder Additional Impressions: Visual hallucinations Right knee pain Bipolar disorder Condition: Improved Discharge Instructions: Managing Bipolar Disorder Additional Instructions: Please follow-up with the mental health provider. Call them as soon as possible in the morning and discuss your symptoms. You need an urgent appointment. Referrals: NO PRIMARY CARE PROVIDER (PCP) Education Educated: Patient Educated regarding: diagnosis, treatment, prognosis, need for follow up Signature Scribe Signature: No scribe Attestation: Date: Oct 24, 2024 Time: 02:33 This note accurately reflects clinical decisions, work performed by myself, Abhishek Wakefield, ABHISHEK MORGAN DO Oct 24, 2024 02:33
[2024-10-24 07:11] VITALS: TEMP 97.8
== END 2024-10-24 07:12 | disposition left against medical advice (07) ==
LOC: ER 00:41
DX: F99 Mental disorder, not otherwise specified (principal); R44.1 Visual hallucinations; M25.561 Pain in right knee; F31.9 Bipolar disorder, unspecified; I10 Essential (primary) hypertension; F12.90 Cannabis use, unspecified, uncomplicated; F15.90 Other stimulant use, unspecified, uncomplicated; Z79.899 Other long term (current) drug therapy; Z87.442 Personal history of urinary calculi; Z59.00 Homelessness unspecified; Z56.0 Unemployment, unspecified; Z60.2 Problems related to living alone
CPT/HCPCS: 99283

== ENCOUNTER 2024-10-29 04:00 | Emergency (ER) | payer MEDICAID ==
[~2024-10-29] VITALS: Ht 177.8 cm; Wt 120.0 kg
[2024-10-29 04:06] VITALS: BP 136/78; PULSE 76; RESP 18; TEMP 97; O2SAT 96
== END 2024-10-29 04:51 | disposition left against medical advice (07) ==
LOC: ER 04:00
DX: F41.9 Anxiety disorder, unspecified (principal); Z76.0 Encounter for issue of repeat prescription; Z53.21 Procedure and treatment not carried out due to patient leaving prior to being seen by health care provider

== ENCOUNTER 2024-11-01 01:21 | Emergency (ER) | payer MEDICAID ==
[~2024-11-01] VITALS: Ht 177.8 cm; Wt 120.0 kg
[2024-11-01 01:22] VITALS: BP 143/100; PULSE 97; RESP 18; TEMP 97; O2SAT 97
== END 2024-11-01 01:53 | disposition left against medical advice (07) ==
LOC: ER 01:22
DX: F41.9 Anxiety disorder, unspecified (principal); Z76.0 Encounter for issue of repeat prescription; Z53.21 Procedure and treatment not carried out due to patient leaving prior to being seen by health care provider

== ENCOUNTER 2024-11-05 22:13 | Emergency (ER) | payer MEDICAID ==
[~2024-11-05] VITALS: Ht 177.8 cm; Wt 80.7 kg
[2024-11-05 22:31] VITALS: BP 138/82; PULSE 102; RESP 15; TEMP 96.3; O2SAT 99
--- NOTE | 2024-11-05 23:11 | Physician Documentation ---
History of Present Illness ~ General Chief Complaint: See Chief Complaint Stated Complaint: DEHYDRATED Time Seen by MD: 23:08 Primary Medical Doctor: EMMANUEL RESTREPO History of Present Illness Initial Comments Patient presents to the emergency room feeling thirsty. He feels unusual when he is drinking but this has seemed to resolve Medication Reconciliation Allergies: Coded Allergies: No Known Allergies (Unverified , 11/05/24) Scheduled Aripiprazole (Abilify Asimtufii), 960 MG IM Q60 DAYS, (Reported) Olanzapine (Olanzapine), 1 TAB PO HS Past Medical History Past Medical History: Hypertension, Kidney Stones, Bipolar, Depression, Schizophrenia Past Surgical History: orthopedic surgeries Patient History: Patient reports no known family medical history. Alcohol Use: None Drug Use: marijuana, methamphetamine Lives with: Alone Lives In: Homeless Occupation: unemployed Review of Systems All Other Systems at this time: Reviewed and Negative Physical Exam Physical Exam Vital Signs: Temperature: 96.3, Source: Temporal, Heart Rate: 102, Respiratory Rate: 15, BP: 138/82, Pulse Oximetry: 99, Weight: 80.650 Physical Exam General: Patient is awake, alert, oriented x4 in no acute distress Head: Normocephalic and atraumatic. Eyes: Conjunctival normal. EOMI. PERRL. ENT: Mucous membranes moist. Neck: Supple, trachea is midline. Chest: Clear to auscultation bilaterally without rales, rhonchi, or wheezes. There is no accessory muscle use or retractions. Cardiac: RRR without murmurs, gallops, or rubs. Progress Results/Orders Results/Orders Vital Signs 11/05/24 22:31 Temp 96.3 Pulse 102 Resp 15 B/P (MAP) 138/82 Pulse Ox 99 Medical Decision Making Findings Patient presents to the emergency room requesting water. He is drinking. I do not feel he was suffering from a medical emergency and I do not feel he requires emergent labs or imaging Departure Disposition: HOME / SELF CARE / HOMELESS Impression: Primary Impression: General medical examination Condition: Stable Discharge Instructions: General Discharge Instructions Referrals: NO PRIMARY CARE PROVIDER (PCP) Signature Scribe Signature: No scribe Attestation: The note accurately reflects work and decisions made by me.Damian Whitehead MD 11/05/24 23:11 DAMIAN WHITEHEAD MD Nov 05, 2024 23:11
[2024-11-06] MEDS ORDERED: CLOT15CR73 TOP (20:15)
== END 2024-11-05 23:16 | disposition home or self-care (01) ==
LOC: ER 22:13
DX: Z00.00 Encounter for general adult medical examination without abnormal findings (principal); F20.9 Schizophrenia, unspecified; F31.9 Bipolar disorder, unspecified; I10 Essential (primary) hypertension; F12.90 Cannabis use, unspecified, uncomplicated; F15.90 Other stimulant use, unspecified, uncomplicated
CPT/HCPCS: 99281; 99282

== ENCOUNTER 2024-11-06 19:36 | Emergency (ER) | payer MEDICAID ==
[~2024-11-06] VITALS: Ht 180.3 cm; Wt 130.0 kg
[2024-11-06 19:41] VITALS: BP 150/97; PULSE 100; RESP 16; TEMP 97.6; O2SAT 95
--- NOTE | 2024-11-06 19:48 | Physician Documentation ---
History of Present Illness ~ Chief Complaint: Foot pain Stated Complaint: FOOT PAIN Time Seen by MD: 19:44 Primary Medical Doctor: EMMANUEL ALFARO 38-year-old disheveled male who presents to the emergency department with a complaint of possible sanchez to his left foot. He is uncertain the cause of the sanchez and reports they have only been there one day. He has a non antalgic gait in his presently wearing she is in socks. Interviewed with medical screening examination in triage pending direct bedding for comprehensive examination. He is in declines needing pain management at this time Tetanus witin 5 years: No Medication Reconciliation Allergies: Coded Allergies: No Known Allergies (Unverified , 11/05/24) Scheduled Aripiprazole (Abilify Asimtufii), 960 MG IM Q60 DAYS, (Reported) Clotrimazole/Betamet Diprop Cream* (Lotrisone Cream*), 1 APPLIC TOP Q12H Olanzapine (Olanzapine), 1 TAB PO HS Past Medical History Past Medical History: Hypertension, Kidney Stones, Bipolar, Depression, Schizophrenia Past Surgical History: orthopedic surgeries Patient History: Patient reports no known family medical history. Alcohol Use: None Drug Use: marijuana, methamphetamine Lives with: Alone Lives In: Homeless Occupation: unemployed Review of Systems All Other Systems at this time: Reviewed and Negative Integumentary: Reports: rash, itching Physical Exam Vital Signs: Temperature: 97.6, Source: Temporal, Heart Rate: 100, Respiratory Rate: 16, BP: 150/97, Pulse Oximetry: 95, Weight: 130.000 Oxygen Flow Rate: 0 General Appearance: alert, WD/WN, mild distress Head: normal inspection EENT: PERRL/EOMI Respiratory: no respiratory distress Chest: no accessory muscle use Distal Function: no motor deficit, no sensory deficit Skin: normal color Skin Erythema circumferential today the borders of the foot with erythema and breakdown between the toes. No ulcerations, fissures or blisters. Neurologic: oriented x4 Psychiatric: other (Blunt affect) Progress Results/Orders Results/Orders Vital Signs 11/06/24 19:41 Temp 97.6 Pulse 100 Resp 16 B/P (MAP) 150/97 Pulse Ox 95 O2 Flow Rate 0 Medical Decision Making Additional Comment Examination and history consistent with tinea pedis without fissures, cellulitis or excoriation. Patient to begin clotrimazole twice daily for 7-14 days. Provided meal in the emergency department in discharged safe stable condition. Departure Disposition: 04 [facility] Impression: Primary Impression: Tinea pedis Qualified Codes: B35.3 - Tinea pedis Condition: Stable Additional Instructions: Please apply topical clotrimazole twice daily and D at best to keep your feet clean and dry. Thank you for visiting emergency department of [facility]. Referrals: NO PRIMARY CARE PROVIDER (PCP) Prescriptions Clotrimazole/Betamet Diprop Cream* (Lotrisone Cream*) 15 Gm Tube 1 APPLIC TOP Q12H for 7 Days, #30 GM apply to affected area(s) Prov: SHANNA GREGORY PAC 11/06/24 Education Educated: Patient Educated regarding: diagnosis, treatment Signature Scribe Signature: . Attestation: . SHANNA GREGORY PAC Nov 06, 2024 19:48
[2024-11-06] MEDS ORDERED: CLOT15CR73 TOP (20:15)
== END 2024-11-06 20:18 ==
LOC: ER 19:37
DX: B35.3 Tinea pedis (principal); F12.90 Cannabis use, unspecified, uncomplicated; F20.9 Schizophrenia, unspecified; F31.9 Bipolar disorder, unspecified; I10 Essential (primary) hypertension; Z56.0 Unemployment, unspecified; Z59.00 Homelessness unspecified; Z87.442 Personal history of urinary calculi; Z79.899 Other long term (current) drug therapy; Z98.890 Other specified postprocedural states; Z60.2 Problems related to living alone
CPT/HCPCS: 99285

== ENCOUNTER 2024-11-10 19:22 | Emergency (ER) | payer MEDICAID ==
[~2024-11-10] VITALS: Ht 180.3 cm; Wt 85.0 kg
[~2024-11-10 19:22] MED LIST changes: +CLOT15CR73 TOP
[2024-11-10 19:28] VITALS: BP 156/107; PULSE 109; RESP 16; TEMP 98; O2SAT 99
--- NOTE | 2024-11-10 20:43 | Physician Documentation ---
History of Present Illness ~ Chief Complaint: Finger pain Stated Complaint: FINGER SWELLING Time Seen by MD: 20:16 Primary Medical Doctor: EMMANUEL ALFARO 38-year-old male presents with two days of increased pain and swelling in his right middle finger. States he thinks he has had an abscess develop there. Acknowledges recent methamphetamine use. Denies any IV drug use. Denies any fevers. Denies pain of a portion does report swelling. Has normal range of motion. Day of Onset: Nov 10, 2024 Tetanus within 5 years: No Medication Reconciliation Allergies: Coded Allergies: No Known Allergies (Unverified , 11/05/24) Scheduled Aripiprazole (Abilify Asimtufii), 960 MG IM Q60 DAYS, (Reported) Clotrimazole/Betamet Diprop Cream* (Lotrisone Cream*), 1 APPLIC TOP Q12H Olanzapine (Olanzapine), 1 TAB PO HS Past Medical History Past Medical History: Hypertension, Kidney Stones, Bipolar, Depression, Schizophrenia Past Surgical History: orthopedic surgeries Patient History: Patient reports no known family medical history. Alcohol Use: None Drug Use: marijuana, methamphetamine Lives with: Alone Lives In: Homeless Occupation: unemployed Physical Exam Vital Signs: Temperature: 98.0, Source: Oral, Heart Rate: 109, Respiratory Rate: 16, BP: 156/107, Pulse Oximetry: 99, Weight: 85.000 Progress Results/Orders Results/Orders Orders - JULIO GENTILE NP Laceration/I&D Tray Set Up (11/10/24 ) Completed Orders - JULIO GENTILE NP Lidocaine 1% 30ml Vial (Xylocaine 1% Via (11/10/24 20:48) Sulfamethox/Trimetho. Ds Tab (Septra Ds (11/10/24 20:50) Cephalexin Capsule (Keflex Capsule) (11/10/24 20:50) Vital Signs 11/10/24 19:28 Temp 98.0 Pulse 109 Resp 16 B/P (MAP) 156/107 Pulse Ox 99 Medical Decision Making Findings Patient left without allowing me to complete the procedure. ED nurses reported his departure Departure Disposition: LEFT AWOL/ELOPED Impression: Primary Impression: Abscess Referrals: NO PRIMARY CARE PROVIDER (PCP) Signature Scribe Signature: y Attestation: Scribed for Julio Gentile [employer] Supervisor by Julio Rosales NP . 11/10/24 22:52 JULIO GENTILE NP Nov 10, 2024 20:43
[2024-11-10] MEDS ORDERED: LIDOcaine 1% 30ml preserv. free vial SQ STA (20:48)
[2024-11-10] MEDS ORDERED: sulfamethoxazole/trimethoprim DS (800/160mg) tablet PO ONE (20:50)
== END 2024-11-10 21:05 | disposition left against medical advice (07) ==
LOC: ER 19:23
DX: L02.511 Cutaneous abscess of right hand (principal); M79.644 Pain in right finger(s); F12.90 Cannabis use, unspecified, uncomplicated; F15.90 Other stimulant use, unspecified, uncomplicated; F20.9 Schizophrenia, unspecified; F31.9 Bipolar disorder, unspecified; I10 Essential (primary) hypertension; Z56.0 Unemployment, unspecified; Z59.00 Homelessness unspecified; Z87.442 Personal history of urinary calculi; Z79.899 Other long term (current) drug therapy; Z60.2 Problems related to living alone
CPT/HCPCS: 99282

== ENCOUNTER 2024-11-12 16:47 | Emergency (ER) | payer MEDICAID ==
[~2024-11-12] VITALS: Ht 180.3 cm; Wt 118.2 kg
[2024-11-12 17:21] VITALS: BP 145/97; TEMP 98.2
--- NOTE | 2024-11-12 17:42 | Physician Documentation ---
History of Present Illness Chief Complaint: See Chief Complaint Stated Complaint: SWOLLEN FINGERS Primary Medical Doctor: EMMANUEL RESTREPO [facility] 39-year-old male that presents to the emergency department for evaluation of multiple abscesses throughout his body. Patient reports that he was recently seen at a local clinic it told him that they would not treat him due to concerns for staph or MRSA. Patient denies any fever chills nausea vomiting diarrhea or any other symptoms this time. Patient reports he has had these before and was previously treated with penicillin injection. Patient denies any other significant past medical history and no allergies at this time. 39 year old male was evaluated two days ago by me and consulted with Dr. Birch with and we both agreed that this needs is a case of I and D packing antibiotics. Has returned after eloping from the ED two days ago Medication Reconciliation Allergies: Coded Allergies: No Known Allergies (Unverified , 11/12/24) Scheduled Aripiprazole (Abilify Asimtufii), 960 MG IM Q60 DAYS, (Reported) Clotrimazole/Betamet Diprop Cream* (Lotrisone Cream*), 1 APPLIC TOP Q12H Olanzapine (Olanzapine), 1 TAB PO HS Sulfamethoxazole/Trimethoprim (Septra Ds Tab), 1 TAB PO Q12H Past Medical History Past Medical History: Hypertension, Kidney Stones, Bipolar, Depression, Schizophrenia Past Surgical History: orthopedic surgeries Patient History: Patient reports no known family medical history. Alcohol Use: None Drug Use: marijuana, methamphetamine Lives with: Alone Lives In: Homeless Occupation: unemployed Review of Systems All Other Systems at this time: Reviewed and Negative ROS As stated above in the HPI, otherwise all systems are reviewed and negative. Physical Exam Vital Signs: Temperature: 98.2, Source: Oral, Heart Rate: 100, Respiratory Rate: 18, BP: 145/97, Pulse Oximetry: 98, Weight: 118.180 Oxygen Flow Rate: 0 Physical Exam General: Alert, no apparent distress. Respiratory: Lungs clear, no respiratory distress. Extremities: Right middle finger has fusiform swelling he is not in a flexed position and does not have flexor tenderness, has a notable abscess at the base of the anterior right middle finger Neurologic: Oriented x4. Psychiatric: Normal mood and affect. Skin: Normal color, warm and dry. No edema, no ecchymosis. Procedures Procedures The patient allowed me to infused 5 mL of 1% lidocaine at the base of his finger. At the time of the required I and D packing patient refused to allow me to make an incision. I repeatedly advised him otherwise he states that he will "squeeze it and make it better."Repeatedly advised him against this. Advised him that he could lose his finger. This time the patient decided to go AMA Ultrasound Date: Nov 12, 2024 Progress Results/Orders Results/Orders Vital Signs 11/12/24 17:21 Temp 98.2 Pulse 100 Resp 18 B/P (MAP) 145/97 Pulse Ox 98 O2 Flow Rate 0 Medical Decision Making Findings This patient has a moderate to severe infection in the base of his right finger which requires emergent I and D. he will not allow treatment to occur. Did sign AMA paperwork after repeatedly encouraged him to allow medical treatment to take place. Differential Dx:Considerations: Include: AAA, Angina/NM, Aortic dissection, Appendicitis, Bowel obstruction, Cholangitis, Cholelithasis, Constipation, Diverticular disease, Esophageal rupture, Esophagitis, Gastritis/PUD, Gastroenteritis, GI hemorrhage, Hernia, Hepatitis, Inflammatory BD, Ischemic bowel, Pancreatitis, Porphyria, Testicular torsion, Trauma, intraabdominal, Urinary obstruction, Urinary tract infection, Urolithiasis, Other Departure Disposition: 07 LEFT AGAINST MEDICAL ADVICE Impression: Primary Impression: Medical non-compliance Additional Impression: Abscess Condition: Fair Additional Instructions: May lose your finger and developed sepsis possibly leading to if you do not allow treatment of your finger.. Please return to the ED at your soon as convenience. Referrals: NO PRIMARY CARE PROVIDER (PCP) Prescriptions Sulfamethoxazole/Trimethoprim (Septra Ds Tab) 800 Mg/160 Mg Tablet 1 TAB PO Q12H for 10 Days, #20 TAB Prov: JULIO DURAND NP 11/12/24 Education Educated: Patient Educated regarding: diagnosis Signature Scribe Signature: g Attestation: Scribed for Julio Durand Np by Julio Rosales NP . 11/12/24 22:20 OLIVIER ARIAS Nov 12, 2024 17:42 JULIO DURAND NP Nov 12, 2024 19:25
[2024-11-12] MEDS: LIDOcaine 1% 30ml preserv. free vial SQ STA (19:22)
[2024-11-12 19:27] VITALS: PULSE 75; RESP 15; O2SAT 99
[2024-11-12] MEDS ORDERED: SULF1TAB45 PO (19:27)
== END 2024-11-12 19:29 | disposition left against medical advice (07) ==
LOC: ER 16:48
DX: L02.511 Cutaneous abscess of right hand (principal); Z91.199 Patient's noncompliance with other medical treatment and regimen due to unspecified reason; I10 Essential (primary) hypertension; F31.9 Bipolar disorder, unspecified; F20.9 Schizophrenia, unspecified; F12.90 Cannabis use, unspecified, uncomplicated; F15.90 Other stimulant use, unspecified, uncomplicated
CPT/HCPCS: 99284; A6266; 99283; A6449

== ENCOUNTER 2024-11-16 03:20 | Emergency (ER) | payer MEDICAID ==
[~2024-11-16] VITALS: Ht 185.4 cm; Wt 118.0 kg
[~2024-11-16 03:20] MED LIST changes: -CLOT15CR73 TOP; +SULF1TAB45 PO
[2024-11-16 03:32] VITALS: BP 153/93; PULSE 98; RESP 16; TEMP 98.2; O2SAT 98
[2024-11-16] MEDS: ibuprofen tablet 400 MG TABLET PO ONE (08:30)
== END 2024-11-16 18:10 | disposition left against medical advice (07) ==
LOC: ER 03:21
DX: L02.511 Cutaneous abscess of right hand (principal)
CPT/HCPCS: 36415; 83605; 87040; 99281; A6449

== ENCOUNTER 2024-12-07 22:51 | Emergency (ER) | payer MEDICAID ==
[~2024-12-07] VITALS: Ht 180.3 cm; Wt 110.5 kg
[~2024-12-07 22:51] MED LIST changes: -SULF1TAB45 PO
--- NOTE | 2024-12-08 01:17 | Physician Documentation ---
History of Present Illness ~ Chief Complaint: Wound Stated Complaint: FINGER PAIN Time Seen by MD: 00:23 Primary Medical Doctor: EMMANUEL RESTREPO Source: patient Mode of Arrival: POV Exam Limitations: no limitations HPI Mr. Garcai is a 39 y/o male who presents requesting to have his middle finger on his right hand evaluated. He states that he had an infection in the finger and was on antibiotics. He states that he took all of the antibiotics as prescribed but just want to be sure it is healing ok. He states that it feels better and he has not noticed any drainage from the finger recently. No fever/chills. Tetanus within 5 years?: No Medication Reconciliation Allergies: Coded Allergies: No Known Allergies (Unverified , 12/07/24) Scheduled Aripiprazole (Abilify Asimtufii), 960 MG IM Q60 DAYS, (Reported) Olanzapine (Olanzapine), 1 TAB PO HS Past Medical History Past Medical History: Hypertension, Kidney Stones, Bipolar, Depression, Schizophrenia Past Surgical History: orthopedic surgeries Patient History: Patient reports no known family medical history. Smoking Status: Current every day smoker Alcohol Use: None Drug Use: marijuana, methamphetamine Lives with: Alone Lives In: Homeless Occupation: unemployed Review of Systems All Other Systems at this time: Reviewed and Negative Physical Exam Vital Signs: RN Vital Signs have been reviewed: Yes, Temperature: 98.5, Source: Oral, Heart Rate: 107, Respiratory Rate: 16, BP: 137/94, Pulse Oximetry: 98, Weight: 110.450 Oxygen Flow Rate: 0 Physical Exam GEN: Alert and oriented and in NAD. HEENT: NC/AT. PERRLA. No scleral icterus. MMM. No oral lesions. NECK: Supple. No JVD. CHEST: RRR. No M/G/T. LUNGS: CTA B. No W/R/R. ABD: Soft. NTND. + BS. No rebounding or guarding. BACK: No CVA TTP. EXT: Healing wound to middle digit on right hand. No cellulitis or purulent drainage noted. NEURO: Alert and oriented x 4. Cooperative. Sensorimotor intact x 4 extremities. Progress Results/Orders Results/Orders Vital Signs 12/07/24 23:02 Temp 98.5 Pulse 107 Resp 16 B/P (MAP) 137/94 Pulse Ox 98 O2 Flow Rate 0 Medical Decision Making Additional information obtaine: N/A Findings While here in the ED, he remained hemodynamically normal with ABC's intact and in NAD. He is afebrile and nontoxic. I evaluated his finger and it appears to be healing well. No purulent drainage or cellulitis noted. No TTP on my exam. He states that he has not noted any purulent drainage from the wound. He has completed a course of antibiotics. Will hold on starting a repeated course of antibiotics. Given follow-up and return instructions. He voiced understanding and agreement with d/c instructions. Differential Dx:Considerations: Include: Abscess, Cellulitis, Dressing change, Healing wound Departure Disposition: HOME / SELF CARE / HOMELESS Impression: Primary Impression: Wound Condition: Improved Discharge Instructions: Skin Abscess Referrals: NO PRIMARY CARE PROVIDER (PCP) Comments Follow-up with your family physician and return to the Emergency Department if there are any additional complaints. Education Educated: Patient Educated regarding: diagnosis, treatment ACF Form Admit Criteria Met or Not Met: NO Signature Scribe Signature: N/A Attestation: N/A LENNY SANTANA MD Dec 08, 2024 01:17
[2024-12-08 01:36] VITALS: BP 130/90; PULSE 99; RESP 18; TEMP 98.6; O2SAT 99
== END 2024-12-08 01:37 | disposition home or self-care (01) ==
LOC: ER 22:51
DX: S60.921A Unspecified superficial injury of right hand, initial encounter (principal); I10 Essential (primary) hypertension; F31.9 Bipolar disorder, unspecified; F20.9 Schizophrenia, unspecified; F17.200 Nicotine dependence, unspecified, uncomplicated; F12.90 Cannabis use, unspecified, uncomplicated; Z87.442 Personal history of urinary calculi; Z59.00 Homelessness unspecified; Z79.899 Other long term (current) drug therapy; Z56.0 Unemployment, unspecified; Z98.890 Other specified postprocedural states; Z60.2 Problems related to living alone; X58.XXXA Exposure to other specified factors, initial encounter; Y93.89 Activity, other specified; Y92.89 Other specified places as the place of occurrence of the external cause; Y99.8 Other external cause status
CPT/HCPCS: 99282

== ENCOUNTER 2024-12-15 19:41 | Emergency (ER) | payer MEDICAID ==
[~2024-12-15] VITALS: Ht 180.3 cm; Wt 114.0 kg
[2024-12-15 20:25] LABS: MEAN PLATELET VOLUME 7.8 FL (7.4-10.4); RED CELL DISTRIBUTION WIDTH 14.2 % (11.5-14.5)
[2024-12-15 20:38] LABS: CREATININE 0.53 MG/DL (0.60-1.10); TOTAL CARBON DIOXIDE 25.6 MMOL/L (24-32); eCRCL 199 ML/MIN; eGFR > 90 ML/MIN
--- NOTE | 2024-12-15 20:39 | Physician Documentation ---
History of Present Illness ~ Chief Complaint: Mental Health Eval Stated Complaint: 5150 Time Seen by MD: 20:18 Primary Medical Doctor: EMMANUEL ALFARO 39-year-old male presents to the Emergency department due to three month history of increasing audible hallucinations voicing SI without HI. Patient's thoughts are well communicated & his speech is very clear. Patient is believes his intent is to cut his wrists deeply. Symptoms escalated over the last 4-5 days. Reports methamphetamine use four days ago where he was up for two days. Tonight continues to have auditory hallucinations without visual hallucinations. Reports takes Abilify for schizoaffective disorder & bipolar disorder. No obvious lacerations or contusions. Medication Reconciliation Allergies: Coded Allergies: No Known Allergies (Unverified , 12/07/24) Scheduled Aripiprazole (Abilify Asimtufii), 960 MG IM Q60 DAYS, (Reported) Discontinued Medications Olanzapine (Olanzapine), 1 TAB PO HS Discontinued Reason: patient no longer taking Past Medical History Past Medical History: Hypertension, Kidney Stones, Bipolar, Depression, Schizophrenia Past Surgical History: orthopedic surgeries Patient History: Patient reports no known family medical history. Alcohol Use: None Drug Use: marijuana, methamphetamine Lives with: Alone Lives In: Homeless Occupation: unemployed Review of Systems All Other Systems at this time: Reviewed and Negative Psychiatric: Reports: anxiety, sleeplessness, hopeless, suicidal, hallucinations Physical Exam Vital Signs: RN Vital Signs have been reviewed: Yes, Temperature: 98.0, Source: Temporal, Heart Rate: 103, Respiratory Rate: 16, BP: 134/87, Pulse Oximetry: 98, Weight: 114.000 General Appearance: alert, WD/WN, mild distress EENT: PERRL/EOMI Head: normal inspection Neck: non-tender Respiratory: lungs clear Neurologic: oriented x4, commissioner of officials II-XII nml as tested Motor / Sensory: no motor deficit, no sensory deficit Cerebellar function exam: normal Appearance/Memory/Insight: other Behavior/Eye contact/Speech: cooperative, good eye contact Thought/Hallucinations: auditory hallucinations Affect: depressed, flat Skin: warm/dry Progress Results/Orders Results/Orders Vital Signs 12/15/24 12/15/24 12/15/24 12/16/24 19:52 20:44 21:15 06:02 Temp 98.0 98.6 Pulse 103 99 Resp 16 16 18 18 B/P (MAP) 134/87 130/82 (98) Pulse Ox 98 99 12/16/24 12:36 Resp 16 B/P (MAP) Laboratory Tests Test 12/15/24 20:14 12/15/24 20:38 12/15/24 20:51 White Blood Count 9.9 Red Blood Count 4.17 L Hemoglobin 12.1 L Hematocrit 35.3 L Mean Corpuscular Volume 84.6 Mean Corpuscular Hemoglobin 29.1 Mean Corpuscular Hemoglobin Concent 34.4 Red Cell Distribution Width 14.2 Platelet Count 260 Mean Platelet Volume 7.8 Neutrophils (%) (Auto) 70.7 Lymphocytes (%) (Auto) 20.6 L Monocytes (%) (Auto) 6.9 Eosinophils (%) (Auto) 1.5 Basophils (%) (Auto) 0.3 Neutrophils # (Auto) 7.0 Lymphocytes # (Auto) 2.0 Monocytes # (Auto) 0.7 Eosinophils # (Auto) 0.1 Basophils # (Auto) 0.0 CBC Comment Sodium Level 138 Potassium Level 3.6 Chloride Level 107 Carbon Dioxide Level 25.6 Anion Gap 5 L Blood Urea Nitrogen 16 Creatinine 0.53 L Estimated GFR/1.73 m2 > 90 BUN/Creatinine Ratio 30.2 H Glucose Level 126 H Calcium Level 8.3 L Total Bilirubin 0.3 Aspartate Amino Transf (AST/SGOT) 22 Alanine Aminotransferase (ALT/SGPT) 31 Alkaline Phosphatase 70 Total Protein 6.9 Albumin 3.2 L Globulin 3.7 Albumin/Globulin Ratio 0.9 L Thyroid Stimulating Hormone (TSH) 2.13 Chemistry Comments Ethyl Alcohol Level < 10 SARS-CoV-2 Antigen (Rapid) Negative Urine Specimen Description Cln catch midstream Urine Color Yellow Urine Clarity Clear Urine pH 7.0 Urine Specific [place] 1.020 Urine Protein Negative Urine Glucose (UA) Negative Urine Ketones Negative Urine Occult Blood Negative Urine Nitrite Negative Urine Bilirubin Negative Urine Urobilinogen 1.0 Urine Leukocyte Esterase Negative Volume Urine Centrifuged 10 ml Urine Comment Urine Opiates Screen Negative Urine Methadone Screen Negative Urine Fentanyl Screen Negative Urine Barbiturates Screen Negative Urine Phencyclidine Screen Negative Urine Amphetamines Screen Positive Urine Benzodiazepines Screen Negative Urine Cocaine Screen Negative Urine Cannabinoids Screen Positive Drug Screen Comment Medical Decision Making Additional information obtaine: N/A Findings 39-year-old male who presents to the emergency department with SI. Plan is to deep cut his wrist. He has been having acute on chronic SI thoughts for three months. States he has been compliant with his Abilify. Recently had methamphetamine use over the weekend. Labs and pending. Toxicology screening reviewed positive for cannabis and positive for methamphetamine. Remaining screening labs reassuring Patient is cleared for mental health evaluation requiring 1799 due to being danger to himself. Signed out at 2359 Differential Dx:Considerations: Include: Anxiety, Bipolar disorder, Conversion disorder, Depression, Homicidal, Panic disorder, Personality disorder, Schizophrenia, Substance abuse, Suicidal Departure Disposition: 01 HOME / SELF CARE / HOMELESS Impression: Primary Impression: Suicidal ideation Additional Impression: Depression Qualified Codes: F32.A - Depression, unspecified Condition: Improved Discharge Instructions: Psychosis Referrals: NO PRIMARY CARE PROVIDER (PCP) Additional Comment Additional Comment Date: Dec 16, 2024 Time: 16:18 patient was evaluated by [facility] blacksmith hammer operator. He is not putting him on 5150 legal hold. He feels that the patient has schizophrenia and auditory hallucinations were exacerbated disease methamphetamine use. There is no legal reason to hold this patient in the emergency department against his will. He will be discharged. Patient is hemodynamically stable for discharge home with follow with their primary care provider. [ ] Specific and cautious return precautions provided and discussed with full understanding. Any incidental findings were also discussed and follow up recommendations given. [] All questions answered. Patient/family were able to verbalize back return precautions. Patient/family agree to plan. Copies of imaging and laboratory studies were provided. Signature Scribe Signature: . Attestation: . SHANNA GREGORY Dec 15, 2024 20:39 ARIANE WAKEFIELD DO Dec 16, 2024 16:19
[2024-12-15 20:48] LABS: ETHANOL < 10 MG/DL (<10)
[2024-12-15 21:15] LABS: LEUKOCYTE ESTERASE ,URINE NEGATIVE (Neg); NITRITES, URINE NEGATIVE (Neg); OCCULT BLOOD,URINE NEGATIVE (Neg)
[2024-12-15 21:19] LABS: URINE AMPHETAMINE SCREEN POSITIVE (Neg); URINE BARBITUATE SCREEN NEGATIVE (Neg); URINE BENZODIAZEPINES SCREEN NEGATIVE (Neg); URINE CANNABINOID SCREEN POSITIVE (Neg); URINE COCAINE SCREEN NEGATIVE (Neg); URINE METHADONE SCREEN NEGATIVE (Neg); URINE OPIATE SCREEN NEGATIVE (Neg); URINE PHENCYCLIDINE SCREEN NEGATIVE (Neg)
[2024-12-15 21:22] LABS: UA COLLECTION TYPE CLN CATCH MIDSTREAM
[2024-12-16 16:36] VITALS: BP 130/82; PULSE 99; RESP 18; TEMP 98.6; O2SAT 99
== END 2024-12-16 16:40 | disposition home or self-care (01) ==
LOC: ER 19:42
DX: S61.511A Laceration without foreign body of right wrist, initial encounter (principal); S61.512A Laceration without foreign body of left wrist, initial encounter; R45.851 Suicidal ideations; I10 Essential (primary) hypertension; F31.9 Bipolar disorder, unspecified; F12.90 Cannabis use, unspecified, uncomplicated; F25.9 Schizoaffective disorder, unspecified; Z56.0 Unemployment, unspecified; Z60.2 Problems related to living alone; Z98.890 Other specified postprocedural states; Z59.00 Homelessness unspecified; Z87.442 Personal history of urinary calculi; Z79.899 Other long term (current) drug therapy; Z20.822 Contact with and (suspected) exposure to COVID-19; X78.9XXA Intentional self-harm by unspecified sharp object, initial encounter; Y93.89 Activity, other specified; Y92.89 Other specified places as the place of occurrence of the external cause; Y99.8 Other external cause status
CPT/HCPCS: 36415; 80048; 80053; 80305; 80320; 81003; 84443; 85025; 87811; 99285

== ENCOUNTER 2024-12-28 08:27 | Emergency (ER) | payer MEDICAID ==
[~2024-12-28] VITALS: Ht 180.3 cm; Wt 110.9 kg
[~2024-12-28 08:27] MED LIST changes: -OLAN-38 PO
[2024-12-28 08:32] VITALS: BP 144/88; PULSE 106; TEMP 97.7; O2SAT 98
[2024-12-28 09:05] VITALS: RESP 16
--- NOTE | 2024-12-28 09:14 | Physician Documentation ---
History of Present Illness ~ Chief Complaint: Suicidal Ideation Stated Complaint: MH Time Seen by MD: 08:39 Primary Medical Doctor: EMMANUEL RESTREPO Mode of Arrival: Ambulatory HPI 39-year-old male well known to this ED presents stating he wants to be placed in his psychiatric hold and transferred to facility. States he has been on multiple psychiatric hold and one recently. Reports being homeless and having hardships. States he has a an ongoing history of depression. Denies any current plan SI Day of Onset: Dec 28, 2024 Medication Reconciliation Allergies: Coded Allergies: No Known Allergies (Unverified , 12/28/24) Scheduled Aripiprazole (Abilify Asimtufii), 960 MG IM Q60 DAYS, (Reported) Past Medical History Past Medical History: Hypertension, Kidney Stones, Bipolar, Depression, Schizophrenia Past Surgical History: orthopedic surgeries Patient History: Patient reports no known family medical history. Alcohol Use: None Drug Use: marijuana, methamphetamine Lives with: Alone Lives In: Homeless Occupation: unemployed Review of Systems All Other Systems at this time: Reviewed and Negative ROS As stated above in the HPI, otherwise all systems are reviewed and negative. Physical Exam Vital Signs: Temperature: 97.7, Source: Oral, Heart Rate: 106, Respiratory Rate: 16, BP: 144/88, Pulse Oximetry: 98, Weight: 110.900 Oxygen Flow Rate: 0 Physical Exam General: Alert, no apparent distress. HEENT: PERRL, EOMI, no injection, moist mucous membranes. Neck: Full range of motion. Respiratory: Lungs clear, no respiratory distress. Chest: No accessory muscle use. Cardiovascular: Regular rate and rhythm, no murmurs. Gastrointestinal: Soft, nontender, nondistended. Bowels sounds present. Extremities: Normal range of motion, no deformity. Neurologic: Oriented x4. Psychiatric: Normal mood and affect. Skin: Normal color, warm and dry. No edema, no ecchymosis. Progress Results/Orders Results/Orders Vital Signs 12/28/24 12/28/24 08:32 09:05 Temp 97.7 Pulse 106 Resp 16 16 B/P (MAP) 144/88 Pulse Ox 98 O2 Flow Rate 0 Medical Decision Making Additional information obtaine: old records Findings Discussed with the patient he has concerns. Also converse with [facility]. Patient has a long history of psychiatric hold and does not currently meet criteria for a 1799. Differential Dx:Considerations: Include: Alcohol abuse, Anxiety, Bipolar disorder, Conversion disorder, Depression, Encephaloathy, Homicidal, Panic disorder, Personality disorder, Schizophrenia, Substance abuse, Suicidal, Other Departure Disposition: 01 HOME / SELF CARE / HOMELESS Impression: Primary Impression: Depression Condition: Stable Discharge Instructions: Depression, Adult Referrals: NO PRIMARY CARE PROVIDER (PCP) Signature Scribe Signature: e Attestation: Scribed for Julio Durand Ultrasonic Cleaner by Julio Rosales NP . 12/28/24 09:13 JULIO DURAND NP Dec 28, 2024 09:14
== END 2024-12-28 09:16 | disposition home or self-care (01) ==
LOC: ER 08:28
DX: F32.A Depression, unspecified (principal); F20.9 Schizophrenia, unspecified; I10 Essential (primary) hypertension; F12.90 Cannabis use, unspecified, uncomplicated; F15.90 Other stimulant use, unspecified, uncomplicated; Z20.822 Contact with and (suspected) exposure to COVID-19
CPT/HCPCS: 36415; 87811; 99282; 99283

== ENCOUNTER 2024-12-31 00:45 | Emergency (ER) | payer MEDICAID ==
[~2024-12-31] VITALS: Ht 180.3 cm; Wt 110.4 kg
[2024-12-31 00:50] VITALS: TEMP 97
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
[2024-12-31 01:28] VITALS: BP 132/80; PULSE 102; RESP 18; O2SAT 99
[2024-12-31] MEDS ORDERED: CEPH-585 PO (01:42)
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
== END 2024-12-31 02:02 | disposition home or self-care (01) ==
LOC: ER 00:46
DX: L03.115 Cellulitis of right lower limb (principal); F20.9 Schizophrenia, unspecified; I10 Essential (primary) hypertension; F31.9 Bipolar disorder, unspecified; F12.90 Cannabis use, unspecified, uncomplicated; F15.90 Other stimulant use, unspecified, uncomplicated
CPT/HCPCS: 70160; 99283

== ENCOUNTER 2025-01-12 02:28 | Emergency (ER) | payer MEDICAID ==
[~2025-01-12] VITALS: Ht 180.3 cm; Wt 110.0 kg
[2025-01-12 02:44] VITALS: BP 156/109; PULSE 112; RESP 18; TEMP 98.8; O2SAT 99
== END 2025-01-12 03:54 | disposition left against medical advice (07) ==
LOC: ER 02:35
DX: Z48.02 Encounter for removal of sutures (principal); Z53.21 Procedure and treatment not carried out due to patient leaving prior to being seen by health care provider
CPT/HCPCS: 99281

== ENCOUNTER 2025-01-13 05:49 | Emergency (ER) | payer MEDICAID ==
[~2025-01-13] VITALS: Ht 180.3 cm; Wt 111.8 kg
[2025-01-13 06:01] VITALS: BP 155/94; PULSE 106; RESP 17; O2SAT 98
--- NOTE | 2025-01-13 06:01 | Physician Documentation ---
History of Present Illness General Stated Complaint: EYE DISCOMFORT Time Seen by MD: 06:00 Primary Medical Doctor: EMMANUEL RESTREPO History of Present Illness Initial Comments 39-year-old male with a history of psychosis and methamphetamine abuse is requesting medical clearance, he denies any recent illness no fevers chills nausea or vomiting. He states he last used meth last week. The patient states his psychosis is stable and he is taking his antipsychotic medications. Medication Reconciliation Allergies: Coded Allergies: No Known Allergies (Unverified , 12/31/24) Scheduled Aripiprazole (Abilify Asimtufii), 960 MG IM Q60 DAYS, (Reported) Discontinued Medications Cephalexin*Monohydrate* (Keflex*), 1 CAP PO Q12H Discontinued Reason: Auto Discontinued Past Medical History Past Medical History: Hypertension, Kidney Stones, Bipolar, Depression, Schizophrenia Past Surgical History: orthopedic surgeries Smoking: Cigarettes Alcohol Use: None Drug Use: marijuana, methamphetamine Lives with: Alone Lives In: Homeless Occupation: unemployed Review of Systems All Other Systems at this time: Reviewed and Negative Physical Exam Physical Exam Physical Exam VITALS: Reviewed and as above. GENERAL: Alert, no apparent distress. HEENT: Normocephalic, atraumatic, PERRL, EOMI, dry mucosa, no erythema BACK: No CVA tenderness, or swelling MUSCULOSKELETAL: No deformities, no edema SKIN: Warm and dry, no rash NEURO: Oriented x4, No motor or sensory deficit PSYCH: Normal mood and affect, no agitation denies suicidal or homicidal ideations Progress Results/Orders Results/Orders Vital Signs 01/13/25 01/13/25 06:01 06:12 Temp 98.9 98.9 Pulse 106 Resp 17 B/P (MAP) 155/94 Pulse Ox 98 Medical Decision Making Additional information obtaine: old records Findings The patient is requesting rehabilitation clearance the patient has been cleared there was no acute medical condition identified that would preclude his entry into rehabilitation. The patient is hemodynamically stable his pulse oximetry was interpreted as normal and adequate. Differential Diagnosis n Departure Time of Disposition: 06:08 Disposition: 01 HOME / SELF CARE / HOMELESS Impression: Primary Impression: General medical exam Discharge Instructions: Medical Screening Exam Additional Instructions: You are medically clear for rehabilitation services. There was no evident acute medical problem that would preclude you from entering rehabilitation. Referrals: NO PRIMARY CARE PROVIDER (PCP) Signature Scribe Signature: none Attestation: The note accurately reflects work and decisions made by me.Joanne Jones MD 01/15/25 11:33 JOANNE JONES MD Jan 13, 2025 06:01
[2025-01-13 06:12] VITALS: TEMP 98.9
== END 2025-01-13 06:19 | disposition home or self-care (01) ==
LOC: ER 05:50
DX: Z00.00 Encounter for general adult medical examination without abnormal findings (principal); I10 Essential (primary) hypertension; F31.9 Bipolar disorder, unspecified; F20.9 Schizophrenia, unspecified; F12.90 Cannabis use, unspecified, uncomplicated; F17.210 Nicotine dependence, cigarettes, uncomplicated; Z87.442 Personal history of urinary calculi; Z59.00 Homelessness unspecified; Z79.899 Other long term (current) drug therapy; Z98.890 Other specified postprocedural states; Z60.2 Problems related to living alone
CPT/HCPCS: 99282

== ENCOUNTER 2025-01-22 14:55 | Emergency (ER) | payer MEDICAID ==
[~2025-01-22] VITALS: Ht 180.3 cm; Wt 110.6 kg
[2025-01-22 15:20] VITALS: TEMP 97.4
--- NOTE | 2025-01-22 16:49 | Physician Documentation ---
History of Present Illness ~ Chief Complaint: Urinary Symptoms Stated Complaint: URINARY COMPLICATIONS Time Seen by MD: 15:52 Primary Medical Doctor: EMMANUEL ALFARO Is a very pleasant 39-year-old male that presents to the emergency department for evaluation of urinary symptoms. Patient reports that he has been unable to urinate since this morning. Patient reports that he does not wish to stay to provide was with a urine sample at this time. He can give a buccal swab sample or blood samples but he would like to leave until he is able to provide a urine sample. Discussed with the patient the need to stay to have his urine and sym ptoms evaluated as this is can become a medical emergency if he is unable to urinate for extended periods of time. Patient reports that he understands but he would like to leave at this time and he will return when he feels like he is able to provide us with a urine sample or he can sit in a hot shower hot bath for an extended period of time that may promote urination for him. Patient reports that he understands the significance of not being able to urinate and he will return if he has any additional problems. Patient denies any abdominal pain fevers chills nausea vomiting diarrhea at this time. Medication Reconciliation Allergies: Coded Allergies: No Known Allergies (Unverified , 01/22/25) Scheduled Aripiprazole (Abilify Asimtufii), 960 MG IM Q60 DAYS, (Reported) Past Medical History Past Medical History: Hypertension, Kidney Stones, Bipolar, Depression, Schizophrenia Past Surgical History: orthopedic surgeries Patient History: Patient reports no known family medical history. Alcohol Use: None Drug Use: marijuana, methamphetamine Lives with: Alone Lives In: Homeless Occupation: unemployed Review of Systems ROS As stated above in the HPI, otherwise all systems are reviewed and negative. Physical Exam Vital Signs: Temperature: 97.4, Source: Temporal, Heart Rate: 111, Respiratory Rate: 16, BP: 139/98, Pulse Oximetry: 97, Weight: 110.600 Oxygen Flow Rate: 0 Physical Exam VITALS: Reviewed and as above. GENERAL: Alert, no apparent distress. HEENT: Normocephalic, atraumatic, PERRL, EOMI, dry mucosa, no erythema RESPIRATORY: Lungs clear, normal breath sounds, no respiratory distress. CHEST: No accessory muscle use, no retractions CV: Regular rate, rhythm, no edema, no murmur, No: JVD GI: Soft, non-tender, bowels sounds present, no rebound, guarding, or rigidity BACK: No CVA tenderness, or swelling MUSCULOSKELETAL No deformities, no edema SKIN: Warm and dry, no rash NEURO: Oriented x4, No motor or sensory deficit PSYCH: Normal mood and affect, no agitation Progress Results/Orders Results/Orders Orders - OLIVIER ARIAS [employer] Urinalysis, Cult If Indicated (01/22/25 16:28) Straight Cath For Urine Sample (01/22/25 16:28) Vital Signs 01/22/25 15:20 Temp 97.4 Pulse 111 Resp 16 B/P (MAP) 139/98 Pulse Ox 97 O2 Flow Rate 0 Medical Decision Making Additional information obtaine: other Findings Is a very pleasant 39-year-old male that presents to the emergency department for evaluation of urinary symptoms. Patient reports that he has been unable to urinate since this morning. Patient reports that he does not wish to stay to provide was with a urine sample at this time. He can give a buccal swab sample or blood samples but he would like to leave until he is able to provide a urine sample. Discussed with the patient the need to stay to have his urine and symptoms evaluated as this is can become a medical emergency if he is unable to urinate for extended periods of time. Patient reports that he understands but he would like to leave at this time and he will return when he feels like he is able to provide us with a urine sample or he can sit in a hot shower hot bath for an extended period of time that may promote urination for him. Patient reports that he understands the significance of not being able to urinate and he will return if he has any additional problems. Patient denies any abdominal pain fevers chills nausea vomiting diarrhea at this time. Urinary Diff Dx:Considerations: Include: AAA, Aortic dissection, Appendicitis, Appendicitis train, Bowel obstruction, Bladder outlet obstruc., Cholelithiasis, Choleangitis, Cholecystitis, DJD, Epididymitis, Hepatitis, HNP, Impaction, Musculoskeletal pain, Pancreatitis, Postoperative Comp., Prostatitis, Pyelonephritis, Renal failure, Renal infarction, Strain, Urolithiasis, Urinary Obstruction, Urethritis, Urinary retention, UTI, Other Genital Diff Dx:Considerations: Include: Abscess, Balanitis, Balanoposthitis, Cellulitis, Epididymitis, Entrapment injury, Renu's gangrene, Foreign body, Facture penis, Hydrocele, Inguinal hernia, Post-op Complication, Paraphimosis, Prostatitis, Priapism, Syphilis, Testicular torsion, Torsion-epididymis, Torsion-appendiceal, Urinary retention, Urethritis, Urethritis-chlamydial, Urethritis-gonococcal, UTI, Other Departure Disposition: 01 HOME / SELF CARE / HOMELESS Impression: Primary Impression: Urinary retention Condition: Stable Discharge Instructions: Acute Urinary Retention, Male Additional Instructions: Is a very pleasant 39-year-old male that presents to the emergency department for evaluation of urinary symptoms. Patient reports that he has been unable to urinate since this morning. Patient reports that he does not wish to stay to provide was with a urine sample at this time. He can give a buccal swab sample or blood samples but he would like to leave until he is able to provide a urine sample. Discussed with the patient the need to stay to have his urine and symptoms evaluated as this is can become a medical emergency if he is unable to urinate for extended periods of time. Patient reports that he understands but he would like to leave at this time and he will return when he feels like he is able to provide us with a urine sample or he can sit in a hot shower hot bath for an extended period of time that may promote urination for him. Patient reports that he understands the significance of not being able to urinate and he will return if he has any additional problems. Patient denies any abdominal pain fevers chills nausea vomiting diarrhea at this time. Referrals: NO PRIMARY CARE PROVIDER (PCP) Education Educated: Patient Educated regarding: diagnosis, treatment, need for follow up Signature Scribe Signature: A Attestation: Scribed for Olivier Arias by CYNDY Yeh . 01/22/25 16:49 OLIVIER ARIAS Jan 22, 2025 16:49
[2025-01-22 17:05] VITALS: BP 140/92; PULSE 98; RESP 18; O2SAT 98
== END 2025-01-22 17:08 | disposition home or self-care (01) ==
LOC: ER 14:55
DX: R33.9 Retention of urine, unspecified (principal); F31.9 Bipolar disorder, unspecified; I10 Essential (primary) hypertension; F20.9 Schizophrenia, unspecified; F12.90 Cannabis use, unspecified, uncomplicated; F15.90 Other stimulant use, unspecified, uncomplicated; Z87.440 Personal history of urinary (tract) infections
CPT/HCPCS: 99282; J7030

== ENCOUNTER 2025-01-23 23:33 | Emergency (ER) | payer MEDICAID ==
[~2025-01-23] VITALS: Ht 180.3 cm; Wt 100.0 kg
--- NOTE | 2025-01-24 04:06 | Physician Documentation ---
History of Present Illness ~ General Chief Complaint: Medical Clearance Stated Complaint: MH Time Seen by MD: 04:06 OK to notify your PCP?: Yes Primary Medical Doctor: EMMANUEL RESTREPO History of Present Illness Initial Comments Reports insomnia. No other complaints. Medication Reconciliation Allergies: Coded Allergies: No Known Allergies (Unverified , 01/22/25) Scheduled Aripiprazole (Abilify Asimtufii), 960 MG IM Q60 DAYS, (Reported) Past Medical History Past Medical History: Hypertension, Kidney Stones, Bipolar, Depression, Schizophrenia Past Surgical History: orthopedic surgeries Patient History: Patient reports no known family medical history. Alcohol Use: None Drug Use: marijuana, methamphetamine Lives with: Alone Lives In: Homeless Occupation: unemployed Review of Systems All Other Systems at this time: Reviewed and Negative Physical Exam Physical Exam Vital Signs: RN Vital Signs have been reviewed: Yes, Temperature: 99.0, Heart Rate: 109, Respiratory Rate: 20, BP: 151/96, Pulse Oximetry: 98, Weight: 100.000 Oxygen Flow Rate: 0 Physical Exam Gen: no distress HEENT: PERRL, EOMI Pulm: no distress Cardiac: deferred Abdomen: deferred MSK: no deformity Skin: w/d/i Neuro: nonfocal Psych: unremarkable Progress Results/Orders Results/Orders Vital Signs 01/23/25 01/24/25 23:38 04:49 Temp 99.0 97.8 Pulse 109 92 Resp 20 18 B/P (MAP) 151/96 126/75 Pulse Ox 98 95 O2 Flow Rate 0 Medical Decision Making Additional information obtaine: N/A Findings 39 year old male with [id number] complaint, noted sleeping in waiting room. Discharge with return precautions. Differential Diagnosis Ddx = insomnia, medication noncompliance, malingering Departure Impression: Primary Impression: Insomnia Condition: Stable Discharge Instructions: Medical Screening Exam Referrals: NO PRIMARY CARE PROVIDER (PCP) Education Educated: Patient Signature Scribe Signature: . Attestation: XIAO CALL MD Jan 24, 2025 04:06
[2025-01-24 04:49] VITALS: BP 126/75; PULSE 92; RESP 18; TEMP 97.8; O2SAT 95
== END 2025-01-24 04:52 | disposition home or self-care (01) ==
LOC: ER 23:34
DX: G47.00 Insomnia, unspecified (principal); F20.9 Schizophrenia, unspecified; F31.9 Bipolar disorder, unspecified; I10 Essential (primary) hypertension; F12.90 Cannabis use, unspecified, uncomplicated; F15.90 Other stimulant use, unspecified, uncomplicated; Z87.440 Personal history of urinary (tract) infections
CPT/HCPCS: 99282

== ENCOUNTER 2025-01-29 20:37 | Emergency (ER) | payer MEDICAID ==
[2025-01-29 20:48] VITALS: BP 153/100; PULSE 117; RESP 15; TEMP 97.6; O2SAT 100
[2025-01-29] MEDS ORDERED: OLAN-38 PO (20:58)
--- NOTE | 2025-01-29 20:59 | Physician Documentation ---
HPI ~ General Chief Complaint: Medication Request Stated Complaint: MED REQUEST Time Seen by MD: 20:55 Primary Medical Doctor: EMMANUEL RESTREPO History of Present Illness HPI Comments Kareem Garcia is a 39-year-old gentleman who is very well known to this emergency department with a innumerable visits, currently on stable psychiatric medication, presents with a request of refill on his Zyprexa, 10 mg, that he uses for breakthrough brooks. He states that his psychiatric cycle is about 10 days, he becomes manic and called lose it on day five. His currently on day 3/4. He would like the medication because he is currently out and just needs to doses until the pharmacy we will be able to refill his meds. Denies any other somatic complaints. Denies any concerns for tobacco, alcohol or illicit substances use Medication Reconciliation Allergies: Coded Allergies: No Known Allergies (Unverified , 01/22/25) Scheduled Aripiprazole (Abilify Asimtufii), 960 MG IM Q60 DAYS, (Reported) Past Medical History Past Medical History: Hypertension, Kidney Stones, Bipolar, Depression, Schizophrenia Past Surgical History: orthopedic surgeries Patient History: Patient reports no known family medical history. Alcohol Use: None Drug Use: marijuana, methamphetamine Lives with: Alone Lives In: Homeless Occupation: unemployed Review of Systems ROS 10 point review of systems was performed and unless noted above in HPI is negative for acute process/complaint. Physical Exam Physical Exam Vital Signs: Temperature: 97.6, Source: Temporal, Heart Rate: 117, Respiratory Rate: 15, BP: 153/100, Pulse Oximetry: 100 Physical Exam Physical examination: GENERAL: Awake, alert, oriented, GCS 15, no apparent distress, non-toxic appearing, answers questions, follows commands appropriately. HEENT: Atraumatic, normocephalic, pupils equal, extraocular muscles intact Active gross movements, sclerae anicteric, mucus membranes moist, no stridor. NECK: Midline, no JVD CARDIOVASCULAR: Good skin perfusion without evidence of pallor, mottling. PULMONARY: Nonlabored, symmetric chest rise, no audible wheezing, no accessory muscle use, no respiratory distress, speaking in full sentences. GASTROINTESTINAL: Not distended. NEUROLOGIC: Lucid with normal mental status. Normal facial symmetry. Moves all extremities symmetrically and with purpose. No truncal ataxia. Speech is fluid without evidence of dysarthria or aphasia, no focal deficits appreciated. EXTREMITIES: Acute deformities Skin: warm, dry PSYCHIATRIC: Normal affect, normal insight, normal concentration. Focused exam: [] Progress Results/Orders Results/Orders Vital Signs 01/29/25 20:48 Temp 97.6 Pulse 117 Resp 15 B/P (MAP) 153/100 Pulse Ox 100 Medical Decision Making Additional information obtaine: old records Findings Facility Status: ED Holds, [facility] process The plan was discussed with the patient, who demonstrates clear understanding of the plan and is in agreement with the plan unless otherwise noted in the chart. All questions have been answered, all concerns were addressed unless otherwise documented. I was available throughout their ED stay for frequent reassessment and questions. Differential Diagnoses (considered and possible or likely): [Medication refill, clinically not consistent with a psychosis, not consistent with a drug toxidrome, not consistent with the alcohol intoxication] ??Differential Diagnoses (considered and unlikely, not requiring evaluation currently): [Denies any somatic complaints] MDM Data Please see [facility] for the following: Independent Historians and external Records Review. Historian: [Patient] Independent Historians: ?[Record review] Medication Management: [Reviewed medication list] Social History and determinants: [Reviewed] Please see the body of the note for the following: Any independent inte rpretations of ECG, imaging studies. All vitals signs/haemodynamics, ordered tests were independently reviewed and interpreted by myself. Nursing triage complaint and vitals reviewed, additional nursing notes were reviewed as available and I agree unless otherwise noted or documented in contradiction in the chart Vital Signs: Independently reviewed Labs: Independently interpreted Imaging: Independently interpreted Old Medical Records: Independently reviewed, see HPI for relevant summary and information Pulse Oximetry: [99%] interpreted as [normal on room air] by me Additionally notably showing: [Hemodynamically stable] Tests considered but not ordered include: [Hematologic workup and imaging has been considered but does not appear to be necessary given clinical nature of diagnosis] Social Determinants of Health Impact: Patient was evaluated in [facility], [facility] [place] access to healthcare due to below par ratio of patient to medical providers. [] Comorbid Conditions Impacting Present Evaluation and Care/Treatment: [Psychiatric disease] Management Discussions with other Healthcare Providers: [None] Treatment and Disposition Medication Management (Given or considered): []. See EMR for details Consideration for Hospitalization/Escalation/Deescalation of Care: Admission for observation has been considered, [however the patient is able to tolerate p.o., their symptoms are controlled, they are able to rely on oral medications, and their chief complaint/diagnosis can be managed on outpatient basis.] ?ED Course:?[Does not not want dose today.] ?Shared decision making:?[Patient is hemodynamically stable for discharge home with follow with their primary care provider. [ ] Specific and cautious return precautions provided and discussed with full understanding. Any incidental findings were also discussed and follow up recommendations given. [] All questions answered. Patient/family were able to verbalize back return precautions. Patient/family agree to plan. Copies of imaging and laboratory studies were provided.] Code status:?FULL Please see the full Electronic Medical Record for full details of nursing documentation, medications list, other records of complete past medical history and conditions, vital signs, laboratory studies, and any radiologic study interpretations by radiologists. Portions of this note were completed using [employer] dictation software and as a result there may exist minor errors in spelling. I have reviewed elements of past family and social history and agree as included in note. Differential Dx:Considerations: Include: Economic, Psychosocial, Medical services unavail., Medication refill, Other (See body of main note for differential diagnosis); Unlikely: Medication non-compliance Departure Disposition: 01 HOME / SELF CARE / HOMELESS Impression: Primary Impression: Medication refill Condition: Stable Discharge Instructions: Medicine Refill at the Emergency Department Referrals: NO PRIMARY CARE PROVIDER (PCP) Prescriptions Olanzapine (Olanzapine) 10 Mg Tablet 1 TAB PO HS for 2 Days, #2 TAB 0 Refills Prov: ABHISHEK WAKEFIELD DO 01/29/25 Education Educated: Patient Educated regarding: diagnosis, treatment, prognosis, need for follow up Signature Scribe Signature: No scribe Attestation: The note accurately reflects work and decisions made by me.Abhishek Wakefield DO 01/29/25 20:59 ABHISHEK WAKEFIELD DO Jan 29, 2025 20:59
== END 2025-01-29 21:05 | disposition home or self-care (01) ==
LOC: ER 20:37
DX: I10 Essential (primary) hypertension (principal); F20.9 Schizophrenia, unspecified; F12.90 Cannabis use, unspecified, uncomplicated; F31.9 Bipolar disorder, unspecified; Z56.0 Unemployment, unspecified; Z59.00 Homelessness unspecified; Z76.0 Encounter for issue of repeat prescription; Z87.442 Personal history of urinary calculi; Z79.899 Other long term (current) drug therapy; Z60.2 Problems related to living alone
CPT/HCPCS: 99282